=== PATIENT | female | born 1935 | race Caucasian/White ===

== ENCOUNTER 2016-09-17 02:22 | Emergency (ER) | payer MEDICARE, MEDICAID ==
[~2016-09-17] VITALS: Ht 170.2 cm; Wt 98.9 kg
[~2016-09-17 02:22] MED LIST: ARIC10TA PO; ASPI81TA82 PO; BENEPOW8 PO; CALCTAB32 PO; DITR5TAB OR; DOCU1CAP39 PO; GLUC1CAP14 PO; LEVO88TA21 PO; METO50TA PO; NAME10TA PO; PRIL20CA PO; TAB-TAB PO; ZOCO40TA PO
[2016-09-17 02:24] VITALS: BP 153/63; PULSE 43; RESP 18; TEMP 97.8
[2016-09-17 02:39] VITALS: BP 131/62; PULSE 45; RESP 18
[2016-09-17] MEDS ORDERED: MULT1TAB84 PO (02:50)
[2016-09-17] MEDS ORDERED: FURO1TAB62 PO (02:50)
[2016-09-17] MEDS ORDERED: ZOLO50TA PO (02:50)
[2016-09-17] MEDS ORDERED: OXYB5TAB10 PO (02:50)
[2016-09-17] MEDS ORDERED: SIMV40TA PO (02:50)
[2016-09-17] MEDS ORDERED: FURO1TAB60 PO (02:50)
[2016-09-17] MEDS ORDERED: NAME10TA PO (02:50)
[2016-09-17] MEDS ORDERED: BENEPOW8 PO (02:50)
[2016-09-17] MEDS ORDERED: DONE10TA7 PO (02:50)
[2016-09-17] MEDS ORDERED: SYNT88TA PO (02:50)
[2016-09-17] MEDS ORDERED: METO-309 PO (02:50)
[2016-09-17] MEDS ORDERED: ASPI81CH CHEW (02:50)
[2016-09-17] MEDS ORDERED: MILKSUS PO (02:50)
[2016-09-17] MEDS ORDERED: LORA-392 PO (02:50)
[2016-09-17] MEDS ORDERED: COLA100C3 PO (02:50)
[2016-09-17] MEDS ORDERED: MELA1TAB22 PO (02:50)
[2016-09-17] MEDS ORDERED: POTA10CA PO (02:50)
[2016-09-17] MEDS ORDERED: OMEP20TA PO (02:50)
--- NOTE | 2016-09-17 04:13 | PD ---
HPI Chief Complaint: Fall Time Seen by Provider: 02:53 Travel History International Travel<30 days: No Contact w/Intl Traveler<30days: No Traveled to known affect area: No History of Present Illness HPI 81-year-old female arrives from assisted living facility. She has history of Alzheimer's disease as well as chronic kidney disease and hypothyroidism. She bent over to pick something up from the floor and ended up falling straight backwards striking her occipital scalp patient has dementia and cannot recall the events leading up to her ER arrival. In the ER she denies pain. Additional history is somewhat limited to that which is provided by EMS and transfer paperwork. PFSH Past Medical History Alzheimer's Disease: Yes Anemia: Yes Anxiety: Yes Cancer: No Cardiovascular Problems: No High Cholesterol: Yes Coronary Artery Disease: Yes Dementia: Yes Diabetes: No Endocrine: No Gastrointestinal Disorders: Yes (GERD) Genitourinary: Yes (BLADDER FISTULA) Hepatitis: No Hiatal Hernia: No Hypertension: Yes Immune Disorder: No Musculoskeletal: No Neurologic: Yes (ALZHEIMER'S DISEASE) Psychiatric: Yes (ALZHEIMER'S DISEASE) Reproductive: No Respiratory: No Thyroid Disease: Yes Tetanus Vaccination: Unknown Influenza Vaccination: Yes Menopausal: Yes Past Surgical History Body Medical Devices: NONE Genitourinary Surgery: Yes (KIDNEY RE-POSITION) Pacemaker: No Other Surgery: Yes (BLADDER LIFT MANY YEARS AGO) Social History Alcohol Use: No Tobacco Use: No Substance Use: No Allergies-Medications (Allergen,Severity, Reaction): Coded Allergies: *MDRO Multi-Drug Resistant Organism (Verified Allergy, Unknown, 09/17/16) ESBL K - pneumoniae urine 05/2013 Reported Meds & Prescriptions Reported Meds & Active Scripts Active Reported Lopressor (Metoprolol Tartrate) 50 Mg Tab 50 Mg PO BID Milk of Magnesia Liq (Magnesium Hydroxide) 400 Mg/5 Ml Susp 30 Ml PO DAILY PRN Ativan (Lorazepam) 0.5 Mg Tab 0.5 Mg PO Q6H PRN Simvastatin 40 Mg Tab 40 Mg PO HS Melatonin 5 Mg Tab 1 Tab PO HS Donepezil 10 Mg Tab 10 Mg PO HS Ditropan (Oxybutynin Chloride) 5 Mg Tab 5 Mg PO Q12HR Namenda (Memantine) 10 Mg Tab 10 Mg PO BID Zoloft (Sertraline HCl) 50 Mg Tab 50 Mg PO DAILY Multivitamin Adults (Multiple Vitamins W/ Minerals) 1 Tab 1 Tab PO DAILY Synthroid (Levothyroxine Sodium) 88 Mcg Tab 88 Mcg PO DAILY Colace (Docusate Sodium) 100 Mg Cap 100 Mg PO DAILY Benefiber Powder (Wheat Dextrin Powder) 1 Scoop Container 1 Scoop PO DAILY Mix in water or juice Aspirin 81 Mg Chew 81 Mg CHEW DAILY Omeprazole 20 Mg Tab 20 Mg PO DAILY Potassium Chloride ER (Potassium Chloride) 10 Meq Cap 10 Meq PO DAILY Lasix (Furosemide) 20 Mg Tab 20 Mg PO DAILY Lasix (Furosemide) 40 Mg Tab 40 Mg PO DAILY TAKE FOR ONE WEEK FOR SWELLING Review of Systems Except as stated in HPI: all other systems reviewed are Neg Physical Exam Narrative GENERAL: 81 yo F, pleasantly demented, follows commands SKIN: Warm and dry. HEAD: Atraumatic. Normocephalic. 3cm contusion L occipital scalp. No Espinal's sign. No raccoon eyes. EYES: Pupils equal and round. No scleral icterus. No injection or drainage. ENT: No nasal bleeding or discharge. Mucous membranes pink and moist. NECK: Trachea midline. No JVD. CARDIOVASCULAR: Regular rate and rhythm. RESPIRATORY: No accessory muscle use. Clear to auscultation. Breath sounds equal bilaterally. GASTROINTESTINAL: Abdomen soft, non-tender, nondistended. Hepatic and splenic margins not palpable. MUSCULOSKELETAL: Extremities without clubbing, cyanosis, or edema. No obvious deformities. NEUROLOGICAL: Awake and alert. No obvious cranial nerve deficits. Motor grossly within normal limits. Five out of 5 muscle strength in the arms and legs. Normal speech. PSYCHIATRIC: Appropriate mood and affect; insight and judgment normal. Data Data Last Documented VS Vital Signs Date Time Temp Pulse Resp B/P Pulse Ox O2 Delivery O2 Flow Rate FiO2 09/17/16 02:39 45 18 131/62 Room Air 09/17/16 02:34 93 09/17/16 02:[address] Brain W/O Iv Contrast(Rout) (09/17/16 03:09) [facility] Medical Decision Making Medical Screen Exam Complete: Yes Emergency Medical Condition: Yes Medical Record Reviewed: Yes Differential Diagnosis Contusion, ICH, skull fracture Narrative Course Head CT: No acute injury No acute distress during ER stay. Patient is ready for discharge. Diagnosis Primary Impression: Fall Qualified Code: W19.XXXA - Fall, initial encounter Additional Impression: Contusion Qualified Code: S00.83XA - Contusion of other part of head, initial encounter Referrals: Primary Care Physician 2 days Additional Instructions: You have a choice when it comes to health care, and we are glad that you chose [facility]. Hopefully, we have met your expectations on today's visit. You are welcome to return to [facility] at any time, as we are committed to meeting the health care needs of our community. Med/Other Pt SpecificInfo: No Change to Meds Disposition: 01 DISCHARGE HOME Condition: Emory Marti MD Sep 17, 2016 04:13
--- NOTE | 2016-09-17 04:49 | RADRPT ---
EXAM DATE/TIME: 09/17/2016 04:30 [facility] COMPARISON: No previous studies available for comparison. INDICATIONS : Trauma. Fall. Altered mental status. RADIATION DOSE: 35.20 CTDIvol (mGy) MEDICAL HISTORY : Dementia. Hypertension. Hypercholesterolemia.GERD SURGICAL HISTORY : None. ENCOUNTER: Initial ACUITY: 1 day PAIN SCALE: Non-responsive LOCATION: cranial TECHNIQUE: Multiple contiguous axial images were obtained of the head. Using automated exposure control and adj ustment of the mA and/or kV according to patient size, radiation dose was kept as low as reasonably a chievable to obtain optimal diagnostic quality images. FINDINGS: CEREBRUM: The ventricles are mildly prominent for age. There is diffuse bilateral cortical atrophy. No evidence of midline shift, mass lesion, hemorrhage or acute infarction. No extra-axial fluid collections are seen. POSTERIOR FOSSA: The cerebellum and brainstem are intact. The 4th ventricle is midline. The cerebellopontine angle i s unremarkable. EXTRACRANIAL: The visualized portion of the orbits is intact. SKULL: The calvaria is intact. No evidence of skull fracture. CONCLUSION: 1. No focal or acute intracranial hemorrhage. 2. Diffuse bilateral cortical atrophy characteristic for patient's age. 3. Mild prominence of the ventricles most likely related to the diffuse atrophy. Fer Mccarty MD on September 17, 2016 at 4:46 Board Certified Radiologist. This report was verified electronically.
[2016-09-17 07:00] VITALS: BP 115/71; PULSE 60; RESP 18; O2SAT 100
== END 2016-09-17 07:32 | disposition home or self-care (01) ==
LOC: NEPC 02:22
DX: S00.03XA Contusion of scalp, initial encounter (principal); F02.80 Dementia in other diseases classified elsewhere, unspecified severity, without behavioral disturbance, psychotic disturbance, mood disturbance, and anxiety; G30.9 Alzheimer's disease, unspecified; I12.9 Hypertensive chronic kidney disease with stage 1 through stage 4 chronic kidney disease, or unspecified chronic kidney disease; E03.9 Hypothyroidism, unspecified; E78.00 Pure hypercholesterolemia, unspecified; W01.10XA Fall on same level from slipping, tripping and stumbling with subsequent striking against unspecified object, initial encounter
CPT/HCPCS: 70450

== ENCOUNTER 2016-12-25 02:21 | Emergency (ER) | payer MEDICARE, MEDICAID ==
[~2016-12-25] VITALS: Ht 157.5 cm; Wt 80.0 kg
[~2016-12-25 02:21] MED LIST changes: -ARIC10TA PO; +ASPI81CH CHEW; -ASPI81TA82 PO; -CALCTAB32 PO; +COLA100C3 PO; -DITR5TAB OR; -DOCU1CAP39 PO; +DONE10TA7 PO; +FURO1TAB60 PO; +FURO1TAB62 PO; -GLUC1CAP14 PO; -LEVO88TA21 PO; +LORA-392 PO; +MELA1TAB22 PO; +METO-309 PO; -METO50TA PO; +MILKSUS PO; +MULT1TAB84 PO; +OMEP20TA PO; +OXYB5TAB10 PO; +POTA10CA PO; -PRIL20CA PO; +SIMV40TA PO; +SYNT88TA PO; -TAB-TAB PO; -ZOCO40TA PO; +ZOLO50TA PO
[2016-12-25 02:25] VITALS: BP 144/63; PULSE 50; RESP 20; TEMP 98.7; O2SAT 92
[2016-12-25] MEDS ORDERED: GLUC1CAP14 PO (02:58)
[2016-12-25] MEDS ORDERED: CALC1TAB87 PO (02:58)
[2016-12-25] MEDS ORDERED: RANI150T PO (02:58)
[2016-12-25] MEDS ORDERED: OXYB5TAB10 PO (02:58)
[2016-12-25] MEDS ORDERED: NU-IRON PO (02:58)
--- NOTE | 2016-12-25 03:06 | PD ---
HPI Chief Complaint: Pain: Acute or Chronic Time Seen by Provider: 02:58 Travel History International Travel<30 days: No Contact w/Intl Traveler<30days: No Traveled to known affect area: No History of Present Illness HPI 81-year-old female with history of dementia [facility] because they believe she may be in pain. Paperwork sent with the patient states that the patient has been grimacing in pain. Upon arrival the patient is awake and alert. She does not make any sense, but apparently this is her baseline according to EMS. She does not appear to be in any distress or in any pain. PFSH Past Medical History Alzheimer's Disease: Yes Anemia: Yes Anxiety: Yes Cancer: No Cardiovascular Problems: No High Cholesterol: Yes Coronary Artery Disease: Yes Dementia: Yes Diabetes: No Endocrine: No Gastrointestinal Disorders: Yes (GERD) GERD: Yes Genitourinary: Yes (BLADDER FISTULA) Hepatitis: No Hiatal Hernia: No Hypertension: Yes Immune Disorder: No Musculoskeletal: No Neurologic: Yes (ALZHEIMER'S DISEASE) Psychiatric: Yes (ALZHEIMER'S DISEASE) Reproductive: No Respiratory: No Renal Failure: Yes (stage 3 renal disease) Thyroid Disease: Yes Menopausal: Yes Past Surgical History Body Medical Devices: NONE Genitourinary Surgery: Yes (KIDNEY RE-POSITION) Pacemaker: No Other Surgery: Yes (BLADDER LIFT MANY YEARS AGO) Social History Alcohol Use: No Tobacco Use: No Substance Use: No Allergies-Medications (Allergen,Severity, Reaction): Coded Allergies: *MDRO Multi-Drug Resistant Organism (Verified Allergy, Unknown, 12/25/16) ESBL K - pneumoniae urine 05/2013 Reported Meds & Prescriptions Reported Meds & Active Scripts Active Reported Ditropan (Oxybutynin Chloride) 5 Mg Tab 10 Mg PO Q12HR Glucosamine-Chondroitin 500-400 Mg Cap 0.5 Cap PO BID Poly-Iron 150 (Polysaccharide Iron Complex) 150 Mg Cap 150 Mg PO Q12HR Calcium 600 with Vitamin D (Calcium Carbonate-Cholecalciferol) 600-400 mg-Unit Tab 1 Tab PO DAILY Ranitidine (Ranitidine HCl) 150 Mg Tab 150 Mg PO DAILY Lopressor (Metoprolol Tartrate) 50 Mg Tab 50 Mg PO BID Milk of Magnesia Liq (Magnesium Hydroxide) 400 Mg/5 Ml Susp 30 Ml PO DAILY PRN Ativan (Lorazepam) 0.5 Mg Tab 0.5 Mg PO Q6H PRN Simvastatin 40 Mg Tab 40 Mg PO HS Melatonin 5 Mg Tab 1 Tab PO HS Donepezil 10 Mg Tab 10 Mg PO HS Namenda (Memantine) 10 Mg Tab 10 Mg PO BID Zoloft (Sertraline HCl) 50 Mg Tab 50 Mg PO DAILY Multivitamin Adults (Multiple Vitamins W/ Minerals) 1 Tab 1 Tab PO DAILY Synthroid (Levothyroxine Sodium) 88 Mcg Tab 88 Mcg PO DAILY Colace (Docusate Sodium) 100 Mg Cap 100 Mg PO DAILY Benefiber Powder (Wheat Dextrin Powder) 1 Scoop Container 1 Scoop PO DAILY Mix in water or juice Aspirin 81 Mg Chew 81 Mg CHEW DAILY Potassium Chloride ER (Potassium Chloride) 10 Meq Cap 10 Meq PO DAILY Review of Systems Except as stated in HPI: all other systems reviewed are Neg Physical Exam Narrative GENERAL: Well-developed, well-nourished, elderly-appearing female, awake, alert , no acute distress. SKIN: Focused skin assessment warm/dry. HEAD: Atraumatic. Normocephalic. EYES: Pupils equal and round. No scleral icterus. No injection or drainage. ENT: Mucous membranes pink and moist. NECK: Trachea midline. No JVD. No nuchal rigidity. CARDIOVASCULAR: Regular rate and rhythm. No murmur appreciated. RESPIRATORY: No accessory muscle use. Clear to auscultation. Breath sounds equal bilaterally. GASTROINTESTINAL: Abdomen soft, non-tender, nondistended. Normal bowel sounds. MUSCULOSKELETAL: No obvious deformities. No clubbing. No cyanosis. No edema. NEUROLOGICAL: Awake and alert. No obvious cranial nerve deficits. Motor grossly within normal limits. Normal speech. Data Data Last Documented VS Vital Signs Date Time Temp Pulse Resp B/P Pulse Ox O2 Delivery O2 Flow Rate FiO2 12/25/16 02:25 98.7 50 20 144/63 92 Orders Electrocardiogram (12/25/16 03:00) Complete Blood Count With Diff (12/25/16 03:00) Comprehensive Metabolic Panel (12/25/16 03:00) Prothrombin Time / Inr (Pt) (12/25/16 03:00) Act Partial Throm Time (Ptt) (12/25/16 03:00) Lactic Acid Sepsis Protocol (12/25/16 03:00) Ckmb (Isoenzyme) Profile (12/25/16 03:00) Troponin I (12/25/16 03:00) Urinalysis - C+S If Indicated (12/25/16 03:00) Blood Culture (12/25/16 03:00) Chest, Single Ap (12/25/16 03:00) Ecg Monitoring (12/25/16 03:00) Iv Access Insert/Monitor (12/25/16 03:00) Oximetry (12/25/16 03:00) Ct Abd/Pel W Iv Contrast(Rout) (12/25/16 ) Cath For Specimen (12/25/16 03:09) Urine Culture (12/25/16 03:10) Ceftriaxone Inj (Rocephin Inj) (12/25/16 03:45) Iohexol 350 Inj (Omnipaque 350 Inj) (12/25/16 04:39) Labs Laboratory Tests Test 12/25/16 03:10 White Blood Count 8.9 TH/MM3 Red Blood Count 3.95 MIL/MM3 Hemoglobin 12.0 GM/DL Hematocrit 36.6 % Mean Corpuscular Volume 92.6 FL Mean Corpuscular Hemoglobin 30.4 PG Mean Corpuscular Hemoglobin 32.9 % Concent Red Cell Distribution Width 13.6 % Platelet Count 184 TH/MM3 Mean Platelet Volume 10.1 FL Neutrophils (%) (Auto) 66.6 % Lymphocytes (%) (Auto) 22.0 % Monocytes (%) (Auto) 9.0 % Eosinophils (%) (Auto) 1.8 % Basophils (%) (Auto) 0.6 % Neutrophils # (Auto) 5.9 TH/MM3 Lymphocytes # (Auto) 2.0 TH/MM3 Monocytes # (Auto) 0.8 TH/MM3 Eosinophils # (Auto) 0.2 TH/MM3 Basophils # (Auto) 0.1 TH/MM3 CBC Comment DIFF FINAL Differential Comment Prothrombin Time 10.7 SEC Prothromb Time International 1.0 RATIO Ratio Activated Partial 21.8 SEC Thromboplast Time Urine Color YELLOW Urine Turbidity HAZY Urine pH 5.5 Urine Specific [place] 1.018 Urine Protein NEG mg/dL Urine Glucose (UA) NEG mg/dL Urine Ketones NEG mg/dL Urine Occult Blood NEG Urine Nitrite POS Urine Bilirubin NEG Urine Urobilinogen LESS THAN 2.0 MG/DL Urine Leukocyte Esterase MOD Urine RBC LESS THAN 1 /hpf Urine WBC 9 /hpf Urine Squamous Epithelial <1 /hpf Cells Urine Bacteria MOD /hpf Urine Hyaline Casts 1 /lpf Urine Mucus FEW /lpf Microscopic Urinalysis Comment CATH-CULTURE IND Sodium Level 146 MEQ/L Potassium Level 3.9 MEQ/L Chloride Level 110 MEQ/L Carbon Dioxide Level 28.7 MEQ/L Anion Gap 7 MEQ/L Blood Urea Nitrogen 31 MG/DL Creatinine 1.16 MG/DL Estimat Glomerular Filtration 45 ML/MIN Rate Random Glucose 88 MG/DL Lactic Acid Level 0.9 mmol/L Calcium Level 9.2 MG/DL Total Bilirubin 0.3 MG/DL Aspartate Amino Transf 23 U/L (AST/SGOT) Alanine Aminotransferase 22 U/L (ALT/SGPT) Alkaline Phosphatase 112 U/L Total Creatine Kinase 50 U/L Troponin I LESS THAN 0.02 NG/ML Total Protein 6.8 GM/DL Albumin 3.4 GM/DL [facility] Medical Decision Making Medical Screen Exam Complete: Yes Emergency Medical Condition: Yes Medical Record Reviewed: Yes Differential Diagnosis Intra-abdominal infection, UTI, ACS, osteoarthritis, dementia Narrative Course Vital signs reviewed. CBC is unremarkable. CMP is remarkable for sodium 146, chloride 110, BUN 31, creatinine 1.16, GFR 45 , otherwise unremarkable. Lactic acid is 0.9. Cardiac enzymes are negative. UA is suggestive of UTI. The patient was given a dose of IV Rocephin. Chest x-ray: Cardiomegaly. No acute cardiopulmonary disease. CT abdomen pelvis: CONCLUSION: 1. No evidence of acute abdominal or pelvic process. No masses are identified. 2. Diverticulosis without evidence of diverticulitis. Patient was reassessed several times and has been comfortable while in the emergency department. Her abdominal exam is benign. She is stable for [facility] with a [facility] for Macrobid for her UTI. PMD follow-up in the next 1-2 days. Diagnosis Primary Impression: UTI (urinary tract infection) Qualified Code: N39.0 - Urinary tract infection without hematuria, site unspecified Referrals: Primary Care Physician 1 day Additional Instructions: Give antibiotic as prescribed. Follow-up with her primary care physician in the next 1-2 days. Keep hydrated with plenty of fluids. Return to the emergency department for worsening symptoms or any other concerns. Scripts Nitrofurantoin Monohydrate Macrocrystals (Macrobid)100 Mg Sld172 Mg PO BID 7 Days Ref 0 Prov:Josué Shah MD 12/25/16 Disposition: 03 DISCHARGE TO SNF Condition: Stable Josué Shah MD December 25, 2016 03:06
[2016-12-25 03:31] LABS: AUTOMATED NEUTROPHIL # 5.9 TH/MM3 (1.8-7.7); BASOPHIL # 0.1 TH/MM3 (0-0.2); BASOPHIL % 0.6 % (0.0-2.0); EOSINOPHIL # 0.2 TH/MM3 (0-0.4); EOSINOPHIL % 1.8 % (0.0-4.0); HEMATOCRIT 36.6 % (35.0-46.0); HEMO FLAGS DIFF FINAL; MEAN CELL VOLUME 92.6 FL (80.0-100.0); MEAN CORPUSCULAR HEMOGLOBIN 30.4 PG (27.0-34.0); MEAN CORPUSCULAR HGB CONC 32.9 % (32.0-36.0); NEUT % 66.6 % (16.0-70.0); PLATELET COUNT 184 TH/MM3 (150-450); RED BLOOD COUNT 3.95 MIL/MM3 (4.00-5.30); RED CELL DISTRIBUTION WIDTH 13.6 % (11.6-17.2); WHITE BLOOD COUNT 8.9 TH/MM3 (4.0-11.0)
[2016-12-25 03:35] LABS: BACTERIA, URINE MOD /hpf; BLOOD, URINE NEG (NEG); COMMENT (UR) CATH-CULTURE IND; CULTURE IF INDICATED CATH CULTURE IND; GLUCOSE,URINE NEG (NEG); HYALINE CAST, URINE 1 /lpf (RARE); KETONE, URINE NEG (NEG); MUCUS URINE FEW /lpf (OCC); NITRITE,URINE POS (NEG); PH, URINE 5.5 (5.0-8.5); SQUAMOUS EPITHELIAL CELL URINE <1 /hpf (0-5); URINE COLOR YELLOW (YELLW/STRAW)
[2016-12-25 03:38] LABS: APTT (PATIENT) 21.8 SEC (24.3-30.1); PROTHROMBIN TIME - PATIENT 10.7 SEC (9.8-11.6)
[2016-12-25] MEDS ORDERED: cefTRIAXone INJ 1,000 MG in SODIUM CHLORIDE 0.9% INJ 100 ML IV ONE (03:45)
[2016-12-25 03:51] LABS: ALT (GPT) 22 U/L (10-53); ANION GAP 7 MEQ/L (5-15); AST (GOT) 23 U/L (15-37); BICARBONATE 28.7 MEQ/L (21.0-32.0); BLOOD UREA NITROGEN 31 MG/DL (7-18); CHLORIDE 110 MEQ/L (98-107); GLOMERULAR FILTRATION RATE 45 ML/MIN (>89); POTASSIUM 3.9 MEQ/L (3.5-5.1); SODIUM (NA) 146 MEQ/L (136-145)
--- NOTE | 2016-12-25 03:52 | RADRPT ---
EXAM DATE/TIME: 12/25/2016 03:15 [facility] COMPARISON: CHEST SINGLE AP, June 07, 2013, 12:02. INDICATIONS : Short of breath. MEDICAL HISTORY : Dementia. Hypertension. Hypercholesterolemia. GERD. SURGICAL HISTORY : None. ENCOUNTER: Initial ACUITY: 1 day PAIN SCORE: Non-responsive. LOCATION: Bilateral chest FINDINGS: The cardiac silhouette is enlarged in transverse diameter. The lungs are free of acute parenchymal op acity. No effusions are identified. Osseous structures are intact. CONCLUSION: Cardiomegaly. No acute cardiopulmonary disease. Joey Ramirez MD on December 25, 2016 at 3:50 Board Certified Radiologist. This report was verified electronically.
[2016-12-25 03:55] LABS: ALKALINE PHOSPHATASE 112 U/L (45-117); TOTAL BILIRUBIN ADULT 0.3 MG/DL (0.2-1.0)
[2016-12-25 04:03] LABS: CREATINE KINASE 50 U/L (26-192)
[2016-12-25] MEDS ORDERED: IOHEXOL 350 MG/ML 10 ML VIAL (for RAD DIAG) IV ONE (04:39)
--- NOTE | 2016-12-25 05:04 | RADRPT ---
EXAM DATE/TIME: 12/25/2016 04:31 [facility] COMPARISON: CT ABDOMEN & PELVIS W CONTRAST, May 07, 2016, 8:34. INDICATIONS : Abdominal pain. IV CONTRAST: 96 cc Omnipaque 350 (iohexol) IV ORAL CONTRAST: No oral contrast ingested. RADIATION DOSE: 17.43 CTDIvol (mGy) MEDICAL HISTORY : Hypertension. Gastroesophageal reflux disease. Renal disease. Dementia. Bladder fistula. CAD. SURGICAL HISTORY : None. ENCOUNTER: Initial ACUITY: 1 day PAIN SCALE: Non-responsive LOCATION: All quadrants. TECHNIQUE: Volumetric scanning of the abdomen and pelvis was performed. Using automated exposure control and ad justment of the mA and/or kV according to patient size, radiation dose was kept as low as reasonably achievable to obtain optimal diagnostic quality images. FINDINGS: Examination of the lung bases demonstrates no abnormality. No pleural fluid is identified. No pulmona ry nodules are present. Coronary artery calcifications are present. The liver is normal in size and f ree of focal defects. Calcification is present in the spleen characteristics of granuloma. The gallbl adder and pancreas are unremarkable. No intrahepatic or extrahepatic ductal dilatation is seen. The a drenal glands and kidneys appear normal bilaterally. No hydronephrosis or mass lesions are identified . Examination of the pelvis demonstrates no evidence of free fluid or pelvic mass. No abnormally enlarg ed inguinal or retroperitoneal lymph nodes are present. The bladder is unremarkable. There is diverti culosis without evidence of diverticulitis. CONCLUSION: 1. No evidence of acute abdominal or pelvic process. No masses are identified. 2. Diverticulosis without evidence of diverticulitis. Joey Ramirez MD on December 25, 2016 at 4:59 Board Certified Radiologist. This report was verified electronically.
[2016-12-25 05:14] VITALS: BP 99/60; PULSE 60; RESP 16; O2SAT 100
[2016-12-25] MEDS ORDERED: MACR100C2 PO (05:16)
--- NOTE | 2016-12-25 18:04 | EKG ---
Date Performed: 12/25/2016 Time Performed: 03:13:25 PTAGE: 81 years EKG: SINUS BRADYCARDIA WITH SINUS ARRHYTHMIA POSSIBLE LEFT ATRIAL ENLARGEMENT POSSIBLE RIGHT TRISTAN TRICULAR CONDUCTION DELAY BORDERLINE ECG Compared to prior tracing no significant change. PREVIOUS TRACING : 05/09/2016 05.32 DOCTOR: Joey Ortiz Interpretating Date/Time 12/25/2016 18:03:12
== END 2016-12-25 09:32 ==
LOC: NEPC 02:21
DX: N39.0 Urinary tract infection, site not specified (principal); B96.20 Unspecified Escherichia coli [E. coli] as the cause of diseases classified elsewhere; B96.89 Other specified bacterial agents as the cause of diseases classified elsewhere; B95.7 Other staphylococcus as the cause of diseases classified elsewhere; F03.90 Unspecified dementia, unspecified severity, without behavioral disturbance, psychotic disturbance, mood disturbance, and anxiety; I10 Essential (primary) hypertension; R94.31 Abnormal electrocardiogram [ECG] [EKG]
CPT/HCPCS: 71010; 74177; 80053; 81001; 82550; 83605; 84484; 85025; 85610; 85730; 86403; 87040; 87077; 87086; 87186; 87205; 93005; 96365; 99284; J0696; P9612; Q9967

== ENCOUNTER 2017-07-15 07:44 | Inpatient (IN) | payer MEDICARE, MEDICAID ==
[2017-07-15] VITALS (7 sets, daily range): BP systolic 111–170; BP diastolic 56–79; PULSE 48–77; RESP 16–23; TEMP 97.2–98.5; O2SAT 93–98
[~2017-07-15] VITALS: Ht 165.1 cm; Wt 75.2 kg
[2017-07-15] MEDS: SODIUM CHLOR 0.9% 1000 ML INJ 1,000 ML IV SCH ×2 (00:24→12:18)
[~2017-07-15 07:44] MED LIST changes: +ASPI-516 CHEW; -ASPI81CH CHEW; +CALC1TAB87 PO; -FURO1TAB60 PO; -FURO1TAB62 PO; +GLUC1CAP14 PO; +MACR100C2 PO; +NU-IRON PO; -OMEP20TA PO; -OXYB5TAB10 PO; +OXYB5TAB8 PO; +RANI150T PO
--- NOTE | 2017-07-15 07:54 | PD ---
HPI Chief Complaint: seizure Time Seen by Provider: 07:50 Travel History International Travel<30 days: No Contact w/Intl Traveler<30days: No Traveled to known affect area: No History of Present Illness HPI 82-year-old prison patient with no previous history of seizures, Alzheimer 's dementia, multiple medical issues, presents to the ER today brought in by EMS after she was witnessed to have what appears to be a tonic-clonic seizure while in the shower. Staff was there and were able to help her to the ground. She does not have any apparent injuries. She was initially GCS 3 when EMS arrived, had an episode of stool incontinence, and slowly recovered, awake, responsive to painful stimuli, but still disoriented and not able to answer questions on evaluation in the ER. Modifying Factors: None Associated Signs & Symptoms: Seizure, altered mental status Risk Factors: Elderly PFSH Past Medical History Alzheimer's Disease: Yes Anemia: Yes Anxiety: Yes Cancer: No Cardiovascular Problems: No High Cholesterol: Yes Coronary Artery Disease: Yes Dementia: Yes Diabetes: No Endocrine: No Gastrointestinal Disorders: Yes (GERD) GERD: Yes Genitourinary: Yes (BLADDER FISTULA) Hepatitis: No Hiatal Hernia: No Hypertension: Yes Immune Disorder: No Musculoskeletal: No Neurologic: Yes (ALZHEIMER'S DISEASE) Psychiatric: Yes (ALZHEIMER'S DISEASE) Reproductive: No Respiratory: No Renal Failure: Yes (stage 3 renal disease) Thyroid Disease: Yes Menopausal: Yes Past Surgical History Body Medical Devices: NONE Genitourinary Surgery: Yes (KIDNEY RE-POSITION) Pacemaker: No Other Surgery: Yes (BLADDER LIFT MANY YEARS AGO) Social History Alcohol Use: No Tobacco Use: No Substance Use: No Allergies-Medications (Allergen,Severity, Reaction): Coded Allergies: *MDRO Multi-Drug Resistant Organism (Verified Allergy, Unknown, 12/25/16) ESBL K - pneumoniae urine 05/2013 Reported Meds & Prescriptions Reported Meds & Active Scripts Active Macrobid (Nitrofurantoin Monoh/Nitrofur Macro) 100 Mg Cap 100 Mg PO BID 7 Days Reported Ditropan (Oxybutynin Chloride) 5 Mg Tab 10 Mg PO Q12HR Glucosamine-Chondroitin 500-400 Mg Cap 0.5 Cap PO BID Poly-Iron 150 (Polysaccharide Iron Complex) 150 Mg Cap 150 Mg PO Q12HR Calcium 600 with Vitamin D (Calcium Carbonate-Cholecalciferol) 600-400 mg-Unit Tab 1 Tab PO DAILY Ranitidine (Ranitidine HCl) 150 Mg Tab 150 Mg PO DAILY Lopressor (Metoprolol Tartrate) 50 Mg Tab 50 Mg PO BID Milk of Magnesia Liq (Magnesium Hydroxide) 400 Mg/5 Ml Susp 30 Ml PO DAILY PRN Ativan (Lorazepam) 0.5 Mg Tab 0.5 Mg PO Q6H PRN Simvastatin 40 Mg Tab 40 Mg PO HS Melatonin 5 Mg Tab 1 Tab PO HS Donepezil 10 Mg Tab 10 Mg PO HS Namenda (Memantine) 10 Mg Tab 10 Mg PO BID Zoloft (Sertraline HCl) 50 Mg Tab 50 Mg PO DAILY Multivitamin Adults (Multiple Vitamins W/ Minerals) 1 Tab 1 Tab PO DAILY Synthroid (Levothyroxine Sodium) 88 Mcg Tab 88 Mcg PO DAILY Colace (Docusate Sodium) 100 Mg Cap 100 Mg PO DAILY Benefiber Powder (Wheat Dextrin Powder) 1 Scoop Container 1 Scoop PO DAILY Mix in water or juice Aspirin 81 Mg Chew 81 Mg CHEW DAILY Potassium Chloride ER (Potassium Chloride) 10 Meq Cap 10 Meq PO DAILY Review of Systems ROS Limitations: Altered Mental Status Physical Exam Narrative GENERAL: Well-developed elderly white female patient currently in moderate distress. Lethargic, disoriented. SKIN: Focused skin assessment warm/dry. HEAD: Atraumatic. Normocephalic. EYES: Pupils equal and round. No scleral icterus. No injection or drainage. ENT: No nasal bleeding or discharge. Mucous membranes pink and moist. NECK: Trachea midline. No JVD. CARDIOVASCULAR: Regular rate and rhythm. No murmur appreciated. RESPIRATORY: No accessory muscle use. Clear to auscultation. Breath sounds equal bilaterally. GASTROINTESTINAL: Abdomen soft, non-tender, nondistended. Hepatic and splenic margins not palpable. MUSCULOSKELETAL: No obvious deformities. No clubbing. No cyanosis. No edema. NEUROLOGICAL: Lethargic. Not able to follow commands. Moving all 4 extremities. PSYCHIATRIC: Lethargic and disoriented Data Data Last Documented VS Vital Signs Date Time Temp Pulse Resp B/P (MAP) Pulse Ox O2 Delivery O2 Flow Rate FiO2 07/15/17 07:56 97.2 57 16 111/56 (74) 95 Room Air Orders Orders Complete Blood Count With Diff (07/15/17 07:50) Electrocardiogram (07/15/17 ) Ct Brain W/O Iv Contrast(Rout) (07/15/17 ) Blood Glucose (07/15/17 07:50) Ecg Monitoring (07/15/17 07:50) Iv Access Insert/Monitor (07/15/17 07:50) Oximetry (07/15/17 07:50) Comprehensive Metabolic Panel (07/15/17 07:50) Sodium Chloride 0.9% Flush (Ns Flush) (07/15/17 08:00) Prothrombin Time / Inr (Pt) (07/15/17 07:50) Act Partial Throm Time (Ptt) (07/15/17 07:50) Urinalysis - C+S If Indicated (07/15/17 07:50) Urine Culture (07/15/17 09:00) Lactic Acid Sepsis Protocol (07/15/17 09:41) Blood Culture (07/15/17 09:41) Piperacil-Tazo 4.5 Gm Premix (Zosyn 4.5 (07/15/17 09:41) Admit Order (Ed Use Only) (07/15/17 09:58) Labs Laboratory Tests Test 07/15/17 08:15 07/15/17 09:00 White Blood Count 5.7 TH/MM3 Red Blood Count 4.10 MIL/MM3 Hemoglobin 12.8 GM/DL Hematocrit 38.8 % Mean Corpuscular Volume 94.6 FL Mean Corpuscular Hemoglobin 31.1 PG Mean Corpuscular Hemoglobin Concent 32.9 % Red Cell Distribution Width 14.1 % Platelet Count 185 TH/MM3 Mean Platelet Volume 9.5 FL Neutrophils (%) (Auto) 66.4 % Lymphocytes (%) (Auto) 23.0 % Monocytes (%) (Auto) 7.5 % Eosinophils (%) (Auto) 2.6 % Basophils (%) (Auto) 0.5 % Neutrophils # (Auto) 3.8 TH/MM3 Lymphocytes # (Auto) 1.3 TH/MM3 Monocytes # (Auto) 0.4 TH/MM3 Eosinophils # (Auto) 0.1 TH/MM3 Basophils # (Auto) 0.0 TH/MM3 CBC Comment DIFF FINAL Differential Comment Prothrombin Time 10.5 SEC Prothromb Time International Ratio 1.0 RATIO Activated Partial Thromboplast Time 18.9 SEC Blood Urea Nitrogen 25 MG/DL Creatinine 1.03 MG/DL Random Glucose 78 MG/DL Total Protein 7.0 GM/DL Albumin 3.1 GM/DL Calcium Level 9.2 MG/DL Alkaline Phosphatase 116 U/L Aspartate Amino Transf (AST/SGOT) 21 U/L Alanine Aminotransferase (ALT/SGPT) 19 U/L Total Bilirubin 0.3 MG/DL Sodium Level 145 MEQ/L Potassium Level 4.4 MEQ/L Chloride Level 109 MEQ/L Carbon Dioxide Level 28.2 MEQ/L Anion Gap 8 MEQ/L Estimat Glomerular Filtration Rate 52 ML/MIN Urine Color YELLOW Urine Turbidity HAZY Urine pH 7.0 Urine Specific [place] 1.016 Urine Protein NEG mg/dL Urine Glucose (UA) NEG mg/dL Urine Ketones NEG mg/dL Urine Occult Blood SMALL Urine Nitrite POS Urine Bilirubin NEG Urine Urobilinogen LESS THAN 2.0 MG/DL Urine Leukocyte Esterase MOD Urine RBC 19 /hpf Urine WBC 13 /hpf Urine Squamous Epithelial Cells 4 /hpf Urine Bacteria OCC /hpf Urine Mucus FEW /lpf Microscopic Urinalysis Comment CATH-CULTURE IND MDM Medical Decision Making Medical Screen Exam Complete: Yes Emergency Medical Condition: Yes Medical Record Reviewed: Yes Interpretation(s) EKG shows sinus bradycardia rate 54 bpm with no signs of acute ST-T changes. Laboratory Tests Test 07/15/17 08:15 07/15/17 09:00 Activated Partial Thromboplast Time 18.9 SEC (24.3-30.1) Blood Urea Nitrogen 25 MG/DL (7-18) Creatinine 1.03 MG/DL (0.50-1.00) Albumin 3.1 GM/DL (3.4-5.0) Chloride Level 109 MEQ/L (98-107) Estimat Glomerular Filtration Rate 52 ML/MIN (>89) Urine Turbidity HAZY (CLEAR) Urine Occult Blood SMALL (NEG) Urine Nitrite POS (NEG) Urine Leukocyte Esterase MOD (NEG) Urine RBC 19 /hpf (0-3) Urine WBC 13 /hpf (0-5) Urine Bacteria OCC /hpf (NONE) Urine Mucus FEW /lpf (OCC) Last [address] 07/15/17 0000 Signed Impressions: Service Date/Time: Saturday, July 15, 2017 08:35 - CONCLUSION: No acute disease. Jasper Brandt MD Differential Diagnosis Seizure, altered mental status: Acute intracranial processes versus metabolic issues versus dehydration versus dysrhythmias Narrative Course EKG did not show significant dysrhythmias. Vital signs are stable in the ER. She is still fairly disoriented in the ER but is unclear whether she is far from baseline. Her lab work did not indicate significant metabolic issues. She does have a UTI which was treated IV antibiotics after cultures were drawn. I am unsure whether this is related to the seizure which was witnessed by staff at facility. She does not appear to have any significant injuries, apparently staff saw her have the episode and lowered her down to the ground. My plan at this point would be to admit her for further evaluation of new onset seizure. Case was discussed with family practice resident service for admission. Diagnosis Primary Impression: New onset seizure Additional Impression: UTI (urinary tract infection) Admitting Information Admitting Physician Requests: Admit Misael Caballero MD Jul 15, 2017 07:54
[2017-07-15] MEDS ORDERED: SODIUM CHLORIDE 0.9% FLUSH 10 ML FLUSH IVF PRN (08:00)
[2017-07-15 08:28] LABS: AUTOMATED NEUTROPHIL # 3.8 TH/MM3 (1.8-7.7); BASOPHIL % 0.5 % (0.0-2.0); EOSINOPHIL # 0.1 TH/MM3 (0-0.4); EOSINOPHIL % 2.6 % (0.0-4.0); HEMATOCRIT 38.8 % (35.0-46.0); HEMO FLAGS DIFF FINAL; LYMPHOCYTE # 1.3 TH/MM3 (1.0-4.8); MEAN CELL VOLUME 94.6 FL (80.0-100.0); MEAN CORPUSCULAR HEMOGLOBIN 31.1 PG (27.0-34.0); MEAN CORPUSCULAR HGB CONC 32.9 % (32.0-36.0); MONO % 7.5 % (0.0-8.0); NEUT % 66.4 % (16.0-70.0); PLATELET COUNT 185 TH/MM3 (150-450); RED CELL DISTRIBUTION WIDTH 14.1 % (11.6-17.2); WHITE BLOOD COUNT 5.7 TH/MM3 (4.0-11.0)
[2017-07-15 08:41] LABS: PROTHROMBIN TIME - PATIENT 10.5 SEC (9.8-11.6)
[2017-07-15 08:46] LABS: ANION GAP 8 MEQ/L (5-15); AST (GOT) 21 U/L (15-37); BICARBONATE 28.2 MEQ/L (21.0-32.0); BLOOD UREA NITROGEN 25 MG/DL (7-18); CHLORIDE 109 MEQ/L (98-107); GLOMERULAR FILTRATION RATE 52 ML/MIN (>89); POTASSIUM 4.4 MEQ/L (3.5-5.1); SODIUM (NA) 145 MEQ/L (136-145)
[2017-07-15 08:47] LABS: ALT (GPT) 19 U/L (10-53)
[2017-07-15 08:52] LABS: ALKALINE PHOSPHATASE 116 U/L (45-117); TOTAL BILIRUBIN ADULT 0.3 MG/DL (0.2-1.0)
[2017-07-15 08:56] LABS: APTT (PATIENT) 18.9 SEC (24.3-30.1)
--- NOTE | 2017-07-15 09:11 | RADRPT ---
EXAM DATE/TIME: 07/15/2017 08:35 [facility] COMPARISON: CT BRAIN W/O CONTRAST, September 17, 2016, 4:30. INDICATIONS : Possible seizure, altered mental status. RADIATION DOSE: 31.11 CTDIvol (mGy) MEDICAL HISTORY : Alzheimer's Cardiovascular disease Hypertension. SURGICAL HISTORY : None. ENCOUNTER: Initial ACUITY: 1 day PAIN SCALE: Non-responsive LOCATION: cranial TECHNIQUE: Multiple contiguous axial images were obtained of the head. Using automated exposure control and adj ustment of the mA and/or kV according to patient size, radiation dose was kept as low as reasonably a chievable to obtain optimal diagnostic quality images. DICOM format image data is available electro nically for review and comparison. FINDINGS: There is marked central and cortical atrophy with dilatation of ventricular and sulcal spaces. There is no parenchymal hemorrhage, acute infarction or mass lesion identified. There are no extra-axial fluid collections appreciated. The posterior fossa is unremarkable with midline fourth ventricle. T he portion of the orbits and paranasal sinuses visualized are unremarkable. CONCLUSION: No acute disease. Jasper Brandt MD on July 15, 2017 at 9:09 Board Certified Radiologist. This report was verified electronically.
[2017-07-15 09:32] LABS: BACTERIA, URINE OCC /hpf; BLOOD, URINE SMALL (NEG); GLUCOSE,URINE NEG (NEG); KETONE, URINE NEG (NEG); MUCUS URINE FEW /lpf (OCC); NITRITE,URINE POS (NEG); SQUAMOUS EPITHELIAL CELL URINE 4 /hpf (0-5); URINE COLOR YELLOW (YELLW/STRAW)
[2017-07-15 09:33] LABS: COMMENT (UR) CATH-CULTURE IND; CULTURE IF INDICATED CATH CULTURE IND
[2017-07-15] MEDS ORDERED: PIPERACIL-TAZO 4.5 GM PREMIX 100 ML IV STA (09:41)
[2017-07-15] MEDS ORDERED: HYDR-3133 PO (10:53)
[2017-07-15] MEDS ORDERED: MELA3TAB PO (10:53)
[2017-07-15] MEDS ORDERED: WHEA1POW9 PO (10:53)
[2017-07-15] MEDS ORDERED: MULT1TAB46 (10:53)
[2017-07-15] MEDS ORDERED: NUED20CA PO (10:53)
--- NOTE | 2017-07-15 11:00 | HHI.HP ---
HPI Service Family Medicine Primary Care Physician Unknown Admission Diagnosis new onset seizure/UTI Diagnoses: Chief Complaint: new tonic-clonic seizure International Travel<30 Days: No Contact w/Intl Traveler<30days: No Known Affected Area: No History of Present Illness Ms Gustafson is an 82YO female w/PMHx of Alzheimer's dementia, Afib, anxiety, and recurrent UTIs who has been a resident in [facility] [id number] and had a tonic-clonic seizure witnessed by the staff in the shower this morning. The staff helped her to the floor so there was no fall at the time and EMS was called. She was incontinent of stool at that time and had a post-ictal period before returning to normal baseline which is non-verbal. Dr Juarez is her PCP in the half-way. Her is in her room with us, [facility], and reports his has had alzheimer's dementia for 4 years or more. She has no other reported medical history. She was last hospitalized at [place] for gallstones approximately 1 year ago. In the ED she is bradycardic on the monitor and on ECG in the 40s and 50s. There are no other symptoms reported. (Ricardo Cope MD R1) Review of Systems ROS Limitations: Clinical Condition (alzheimer's) Constitutional: COMPLAINS OF: Weight loss (from 195 lbs to 162 in half-way/ per diet), DENIES: Fever, Weight gain, Chills (Ricardo Cope MD R1) Past Family Social History Past Medical History anxiety frequent UTIs alzheimer's dementia -- dx 4 years ago scan of records indicates Afib Past Surgical History gallstones 1 yr ago at [facility] couple of surgeries by Dr Garcia Bladder sling 40 yrs ago Reported Medications Reported Meds & Active Scripts Active Reported Hydroxyzine HCl 25 Mg Tab 25 Mg PO QID Nuedexta 20-10 mg (Dextromethorphan HBr-Quinidine) 20 Mg-10 Mg Cap 1 Cap PO BID Multi Vitamin Daily (Multiple Vitamin) 1 Tab Tab Benefiber (Wheat Dextrin) 3 Gram/3.8 Gram Powder 1 Packet PO DAILY Melatonin 3 Mg Tab 1 Tab PO HS Calcium 600 with Vitamin D (Calcium Carbonate-Cholecalciferol) 600-400 mg-Unit Tab 1 Tab PO DAILY Ranitidine (Ranitidine HCl) 150 Mg Tab 150 Mg PO DAILY Lopressor (Metoprolol Tartrate) 50 Mg Tab 50 Mg PO BID Milk of Magnesia Liq (Magnesium Hydroxide) 400 Mg/5 Ml Susp 30 Ml PO DAILY PRN Synthroid (Levothyroxine Sodium) 88 Mcg Tab 88 Mcg PO DAILY Aspirin 81 Mg Chew 81 Mg CHEW DAILY Potassium Chloride ER (Potassium Chloride) 10 Meq Cap 10 Meq PO DAILY (Ricardo Cope MD R1) Allergies: Coded Allergies: *MDRO Multi-Drug Resistant Organism (Verified Allergy, Unknown, 12/25/16) ESBL K - pneumoniae urine 05/2013 Active Ordered Medications Reported Meds & Active Scripts Active Reported Hydroxyzine HCl 25 Mg Tab 25 Mg PO QID Nuedexta 20-10 mg (Dextromethorphan HBr-Quinidine) 20 Mg-10 Mg Cap 1 Cap PO BID Multi Vitamin Daily (Multiple Vitamin) 1 Tab Tab Benefiber (Wheat Dextrin) 3 Gram/3.8 Gram Powder 1 Packet PO DAILY Melatonin 3 Mg Tab 1 Tab PO HS Calcium 600 with Vitamin D (Calcium Carbonate-Cholecalciferol) 600-400 mg-Unit Tab 1 Tab PO DAILY Ranitidine (Ranitidine HCl) 150 Mg Tab 150 Mg PO DAILY Lopressor (Metoprolol Tartrate) 50 Mg Tab 50 Mg PO BID Milk of Magnesia Liq (Magnesium Hydroxide) 400 Mg/5 Ml Susp 30 Ml PO DAILY PRN Synthroid (Levothyroxine Sodium) 88 Mcg Tab 88 Mcg PO DAILY Aspirin 81 Mg Chew 81 Mg CHEW DAILY Potassium Chloride ER (Potassium Chloride) 10 Meq Cap 10 Meq PO DAILY Family History Mother of [place] at age 68 Father - not known Social History Lives [facility] x14 months visits daily no changes noted lately-- notes her health has been improving since admit to half-way 4 children--one daughter visiting for Thanksgiving No EtOH, tobacco, drugs (Ricardo Cope MD R1) Physical Exam Vital Signs Vital Signs Date Time Temp Pulse Resp B/P (MAP) Pulse Ox O2 Delivery O2 Flow Rate FiO2 07/15/17 07:56 97.2 57 16 111/56 (74) 95 Room Air Physical Exam GENERAL: This is a well-nourished, well-developed patient, in no apparent distress. SKIN: No rashes, ecchymoses or lesions. Cool and dry. HEAD: Atraumatic. Normocephalic. No temporal or scalp tenderness. EYES: Pupils equal round and reactive. Extraocular motions intact. No scleral icterus. No injection or drainage. ENT: Nose without bleeding, purulent drainage or septal hematoma. Throat without erythema, tonsillar hypertrophy or exudate. Uvula midline. Airway patent. NECK: Trachea midline. No JVD or lymphadenopathy. Supple, nontender, no meningeal signs. CARDIOVASCULAR: Regular rate and rhythm without murmurs, gallops, or rubs. RESPIRATORY: Clear to auscultation. Breath sounds equal bilaterally. No wheezes , rales, or rhonchi. GASTROINTESTINAL: Abdomen soft, non-tender, nondistended. No hepato-splenomegaly , or palpable masses. No guarding. MUSCULOSKELETAL: Extremities without clubbing, cyanosis, or edema. No joint tenderness, effusion, or edema noted. No calf tenderness. Negative Homans sign bilaterally. NEUROLOGICAL: Awake and alert. Cranial nerves II through XII intact. Motor and sensory grossly within normal limits. Five out of 5 muscle strength in all muscle groups. Normal speech. Laboratory Laboratory Tests Test 07/15/17 08:15 07/15/17 09:00 07/15/17 09:53 White Blood Count 5.7 Red Blood Count 4.10 Hemoglobin 12.8 Hematocrit 38.8 Mean Corpuscular Volume 94.6 Mean Corpuscular Hemoglobin 31.1 Mean Corpuscular Hemoglobin Concent 32.9 Red Cell Distribution Width 14.1 Platelet Count 185 Mean Platelet Volume 9.5 Neutrophils (%) (Auto) 66.4 Lymphocytes (%) (Auto) 23.0 Monocytes (%) (Auto) 7.5 Eosinophils (%) (Auto) 2.6 Basophils (%) (Auto) 0.5 Neutrophils # (Auto) 3.8 Lymphocytes # (Auto) 1.3 Monocytes # (Auto) 0.4 Eosinophils # (Auto) 0.1 Basophils # (Auto) 0.0 CBC Comment DIFF FINAL Differential Comment Prothrombin Time 10.5 Prothromb Time International Ratio 1.0 Activated Partial Thromboplast Time 18.9 Blood Urea Nitrogen 25 Creatinine 1.03 Random Glucose 78 Total Protein 7.0 Albumin 3.1 Calcium Level 9.2 Alkaline Phosphatase 116 Aspartate Amino Transf (AST/SGOT) 21 Alanine Aminotransferase (ALT/SGPT) 19 Total Bilirubin 0.3 Sodium Level 145 Potassium Level 4.4 Chloride Level 109 Carbon Dioxide Level 28.2 Anion Gap 8 Estimat Glomerular Filtration Rate 52 Urine Color YELLOW Urine Turbidity HAZY Urine pH 7.0 Urine Specific [place] 1.016 Urine Protein NEG Urine Glucose (UA) NEG Urine Ketones NEG Urine Occult Blood SMALL Urine Nitrite POS Urine Bilirubin NEG Urine Urobilinogen LESS THAN 2.0 Urine Leukocyte Esterase MOD Urine RBC 19 Urine WBC 13 Urine Squamous Epithelial Cells 4 Urine Bacteria OCC Urine Mucus FEW Microscopic Urinalysis Comment CATH-CULTURE IND Lactic Acid Level 1.4 Date/Time Source Procedure Growth Status 07/15/17 09:55 Blood Peripheral Aerobic Blood Culture Pending Received 07/15/17 09:55 Blood Peripheral Anaerobic Blood Culture Pending Received 07/15/17 09:00 Urine Catheterized Urine Urine Culture Pending Received (Ricardo Cope MD R1) Result Diagram: 07/15/1715 07/15/1715 Imaging Last Impressions Head CT 07/15/17 0000 Signed Impressions: Service Date/Time: Saturday, July 15, 2017 08:35 - CONCLUSION: No acute disease. Jasper Brandt MD Chest X-Ray 07/15/17 0000 Signed Impressions: Service Date/Time: Saturday, July 15, 2017 12:59 - CONCLUSION: Normal examination. Tortuous aorta Jasper Brandt MD (Ricardo Cope MD R1) Septic Shock Reassessment Lungs: Clear Skin: Warm, Dry Peripheral Pulses: Weak Right Dorsalis Pedis Weak Left Dorsalis Pedis Bounding Right Radial Bounding Left Radial Capillary Refill: Brisk (Ricardo Cope MD R1) Caprini VTE Risk Assessment Caprini VTE Risk Assessment: Mod/High Risk (score >= 2) Caprini Risk Assessment Model Point Value = 1 Point Value = 2 Point Value = 3 Point Value = 5 Age 41-60 Minor surgery BMI > 25 kg/m2 Swollen legs Varicose veins or History of unexplained or recurrent spontaneous Oral contraceptives or hormone replacement Sepsis (< 1 month) Serious lung disease, including pneumonia (< 1 month) Abnormal pulmonary function Acute myocardial infarction Congestive heart failure (< 1 month) History of inflammatory bowel disease Medical patient at bed rest Age 61-74 Arthroscopic surgery Major open surgery (> 45 min) Laparoscopic surgery (> 45 min) Malignancy Confined to bed (> 72 hours) Immobilizing plaster cast Central venous access Age >= 75 History of VTE Family history of VTE Factor V Leiden Prothrombin [id number] Lupus anticoagulant Anticardiolipin antibodies Elevated serum homocysteine Heparin-induced thrombocytopenia Other congenital or acquired thrombophilia Stroke (< 1 month) Elective arthroplasty Hip, pelvis, or leg fracture Acute spinal cord injury (< 1 month) Prophylaxis Regimen Total Risk Factor Score Risk Level Prophylaxis Regimen 0-1 Low Early ambulation 2 Moderate Order ONE of the following: *Sequential Compression Device (SCD) *Heparin 5000 units SQ BID 3-4 Higher Order ONE of the following medications: *Heparin 5000 units SQ TID *Enoxaparin/Lovenox 40 mg SQ daily (WT < 150 kg, CrCl > 30 mL/min) *Enoxaparin/Lovenox 30 mg SQ daily (WT < 150 kg, CrCl > 10-29 mL/min) *Enoxaparin/Lovenox 30 mg SQ BID (WT < 150 kg, CrCl > 30 mL/min) AND/OR *Sequential Compression Device (SCD) 5 or more Highest Order ONE of the following medications: *Heparin 5000 units SQ TID (Preferred with Epidurals) *Enoxaparin/Lovenox 40 mg SQ daily (WT < 150 kg, CrCl > 30 mL/min) *Enoxaparin/Lovenox 30 mg SQ daily (WT < 150 kg, CrCl > 10-29 mL/min) *Enoxaparin/Lovenox 30 mg SQ BID (WT < 150 kg, CrCl > 30 mL/min) AND *Sequential Compression Device (SCD) (Ricardo Cope MD R1) Assessment and Plan Assessment and Plan 82YO female w/PMHx Alzheimer's dementia, anxiety and recurrent UTIs p/w new tonic-clonic seizure with no fall, bradycardia in the 40s and 50s on admission, and leuko esterase and nitrite positive UA on admission, but no leukocytosis, afebrile and not ill-appearing. CT head negative for acute disease. DDx new onset seizure disorder vs bradycardia/cardiac etiology vs alzheimer's progression vs metabolic encephalopathy 2/2 UTI. Pt discussed with Dilma Swann Code Status No code/DNR - will bring in copy of HCPOA Discussed Condition With Dilma Beyer and Charleen (Ricardo Cope MD R1) Attending Attestation The patient has been seen and examined. The chart and all resident notes have been reviewed. I agree that inpatient care is appropriate and that a two midnight stay is expected for the reasons documented in the resident history and physical. I have discussed this with the resident and certify the resident s order for inpatient admission. (Destiney Beyer MD) Problem List: (1) New onset seizure ICD Codes: R56.9 - Unspecified convulsions Status: Acute Plan: Tonic-clonic seizure (new onset) in the shower this morning witnessed by staff at [facility]; pt was incontinent of stool at that time and appeared to have a post-ictal period before back at baseline -EEG reported as abnormal -- report pending -ASA 81 given in ED -Ativan 2mg IV PRN if seizure repeats -Seizure precautions -Neuro checks -Neurology consulted, appreciate recs --Start Keppra --Start Fosphenytoin (2) Bradycardia ICD Codes: R00.1 - Bradycardia, unspecified Plan: Bradycardic on admission in 40s and 50s confirmed by EKG; PMHx indicating AFib that is not evident on EKG; assess for Cardiac etiology for seizure etiology -Holding home Metoprolol 50mg BID -Trend Troponins and EKGs x2 -BNP 184 -Total Creatine Kinase 62 -Cardiology consult for Bradycardia, appreciate recs --Per Dr Guido, holding Metoprolol to allow HR to trend up --Restart Metoprolol if/when indicated --Not a candidate for pacemaker --Cards signed off (3) UTI (urinary tract infection) ICD Codes: N39.0 - Urinary tract infection, site not specified Status: Acute Plan: UA leuko esterase and nitrite positive with RBCs, WBCs, bacteria, mucous ; CBC with WBC wnl, pt afebrile, well-appearing; Urine cx pending; since pt is non-verbal, begin empiric abx for UTI with prior Hx of ESBL Klebsiella -Zosyn one dose in ED -Start Cipro 400mg IV q12h pending urine cx (4) ATIYA (acute kidney injury) ICD Codes: N17.9 - Acute kidney failure, unspecified Status: Acute Plan: Hard to establish true Cr baseline but appears to be in normal range; 1.03 on admit -Gentle IVF -Avoid nephrotoxic agents -Renally dose medications (5) Hypothyroidism ICD Codes: E03.9 - Hypothyroidism, unspecified Status: Acute Plan: TSH elevated to 7.430 on 07/15 -Hold home dose 88mcg levothyroxine /day after 07/15 -Start Levothyroxine 100mcg/day 07/16 (6) Alzheimer's dementia ICD Codes: G30.9 - Alzheimer's disease, unspecified Status: Chronic Plan: Stable. (7) FEN/GI/PPx Status: Acute Plan: Fluids: NS IVF @ 110ml/hr Electrolytes: wnl but will monitor w/daily labs and correct as necessary Diet: NPO for now PPx: ASA 81mg -Continue home dose Famotidine 10mg BID -Lovenox 40mg subcu/daily -OOB with assistance -Fall precautions -Seizure precautions -PT to evaluate and treat (8) Hypothyroid ICD Codes: E03.9 - Hypothyroidism, unspecified (Ricardo Cope MD R1) Physician Certification 2 Midnight Certification Type: Admission for Inpatient Services Order for Inpatient Services The services are ordered in accordance with Medicare regulations or non- Medicare payer requirements, as applicable. In the case of services not specified as inpatient-only, they are appropriately provided as inpatient services in accordance with the 2-midnight benchmark. Estimated LOS (days): 2 days is the estimated time the patient will need to remain in the hospital, assuming treatment plan goals are met and no additional complications. Post-Hospital Plan: Shelter/SENIOR CARE (Ricardo Cope MD R1) Problem Qualifiers (1) UTI (urinary tract infection): (2) Alzheimer's dementia: Ricardo Cope MD R1 Jul 15, 2017 11:00 Destiney Beyer MD Jul 21, 2017 22:08
[2017-07-15] MEDS ORDERED: LORazepam 2 MG/ML VIAL IV PUSH PRN (11:30)
[2017-07-15] MEDS ORDERED: ONDANSETRON HCL 4 MG/2 ML VIAL IV PUSH PRN (11:30)
[2017-07-15 11:47] LABS: MAGNESIUM 2.1 MG/DL (1.5-2.5)
--- NOTE | 2017-07-15 12:52 | MB ---
cc: LILIAN CHANDLER DATE OF CONSULTATION 07/15/2017 REASON FOR CONSULTATION Bradycardia HISTORY OF PRESENT ILLNESS This is an 82-year-old female. She is a poor historian and somewhat lethargic, does not answer questions very well. Most of the history is obtained from chart records. Apparently she lives in [facility] for the last year or so. She was in the shower, had stool incontinence and was noted to have a witnessed seizure. She has a history of Alzheimer's dementia. She also presented, was found to be bradycardic with sinus bradycardia in the 40s and 50 beats per minute range. Reportedly asymptomatic from that perspective. She has history of atrial fibrillation. We are consulted for further recommendations. PAST MEDICAL HISTORY 1. Anxiety 2. UTI 3. Alzheimer's dementia MEDICATIONS Reported medications, see med reconciliation. ALLERGIES NO KNOWN DRUG ALLERGIES. FAMILY HISTORY Denies any family history of early coronary artery disease or sudden cardiac . SOCIAL HISTORY Lives at [facility]. REVIEW OF SYSTEMS A limited review of systems is unremarkable as noted in the history of present illness. PHYSICAL EXAMINATION VITAL SIGNS: Temperature 97, pulse is 57, blood pressure 111/56 mmHg. GENERAL: Alert in no acute distress. HEENT: Exam shows pupils are round and reactive to light and accommodation. Extraocular movements are intact. NECK: No elevation in jugular venous distension. No thyromegaly or lymphadenopathy. No carotid bruits. LUNGS: Clear to auscultation bilaterally. CARDIAC: There is a regular rate and rhythm without murmurs, rubs or gallops. ABDOMEN: Nontender, nondistended. Good bowel sounds. No hepatosplenomegaly. EXTREMITIES: Shows no clubbing, cyanosis or edema and good peripheral pulses. NEUROLOGIC: Cranial nerves intact. Motor and sensory grossly intact. Electrocardiogram, sinus bradycardia. No ischemic changes. LABORATORY DATA Sodium 145, potassium 4.4, BUN 25, creatinine is 1.03. TSH pending. ASSESSMENT 1. Sinus bradycardia 2. Seizure 3. Dementia PLAN The patient's heart rate is now in the upper 50s, low 60 beats per minute range. She is in bed lying and comfortable. She probably augments her heart rate appropriately with limited activities. She is on Lopressor 50 mg twice daily. She does have a history atrial fibrillation, although she is in sinus rhythm now. She is not an anticoagulation candidate. At this point, TSH is pending. I would hold her Lopressor for now, let her heart rate trend up and then potentially add back at a much reduced dose maybe 12.5 mg twice daily. There is no high-grade conduction disease. There is no indication for pacemaker. I do not think that her bradycardia had anything to do with her presentation of suggested seizure. At this point, she can follow up with a primary care doc and she probably has an outpatient blood coordinator. She does not need to follow up with me in the outpatient setting. We will sign off, call with further questions. MD VIJAY Vuong/AUGUSTINA /12:40 PM /12:47 PM
--- NOTE | 2017-07-15 13:37 | RADRPT ---
EXAM DATE/TIME: 07/15/2017 12:59 [facility] COMPARISON: CHEST SINGLE AP, December 25, 2016, 3:15. INDICATIONS : Difficulty breathing. MEDICAL HISTORY : Alzheimer's. cardiovascular disease. hypertension. SURGICAL HISTORY : None. ENCOUNTER: Subsequent ACUITY: 2 days PAIN SCORE: Non-responsive. LOCATION: Bilateral chest FINDINGS: A single view of the chest demonstrates the lungs to be symmetrically aerated without evidence of mas s, infiltrate or effusion. The cardiomediastinal contours are unremarkable. Osseous structures are intact. CONCLUSION: Normal examination. Tortuous aorta Jasper Brandt MD on July 15, 2017 at 13:35 Board Certified Radiologist. This report was verified electronically.
--- NOTE | 2017-07-15 15:07 | PD.CONS ---
History of Present Illness Service Neurology Consult Requested By medical Reason for Consult jacob Primary Care Physician Unknown History of Present Illness 82YO female lives in [facility] x14mos --tonic-clonic seizure in shower w/ stool incontinence witnessed by [facility] staff[facility]. advanced dementia x 4 years. bedridden with wheelchair use. mumbled speech and disoriented at baseline. spouse will visit her. no hx of sz. no hx of stroke. ct brain stable. glucose 78. mag nml. na nml. Review of Systems as above Past Family Social History Past Medical History anxiety frequent UTIs alzheimer's dementia -- dx 4 years ago Past Surgical History gallstones 1 yr ago at [place] couple of surgeries by DR Garcia Bladder sling 40 yrs ago Reported Medications none reported Allergies: Coded Allergies: *MDRO Multi-Drug Resistant Organism (Verified Allergy, Unknown, 12/25/16) ESBL K - pneumoniae urine 05/2013 Family History Mother of AR at age 68 Father - not known Social History Lives [facility] Review of Systems All other ROS: ROS reviewed as documented in chart Past Family Social History Allergies: Coded Allergies: *MDRO Multi-Drug Resistant Organism (Verified Allergy, Unknown, 12/25/16) ESBL K - pneumoniae urine 05/2013 Active Ordered Medications Current Medications Medications (Trade) Dose Ordered Sig/Beata Route Start Time Stop Time Status Last Admin (NS Flush) 2 ml UNSCH PRN IVF 07/15/17 08:00 (Aspirin Chew) 81 mg DAILY CHEW 07/16/17 09:00 (Synthroid) 88 mcg DAILY@0600 PO 07/16/17 06:00 (KCl) 10 meq DAILY PO 07/16/17 09:00 (Pepcid) 20 mg BID PO 07/15/17 21:00 Sodium Chloride 1,000 ml @ 110 mls/hr Q9H6M IV 07/15/17 11:17 07/15/17 12:18 (Ativan Inj) 2 mg UNSCH PRN IV PUSH 07/15/17 11:30 (Zofran Inj) 4 mg Q6H PRN IV PUSH 07/15/17 11:30 Ciprofloxacin/ Dextrose 200 ml @ 200 mls/hr Q12H IV 07/15/17 18:00 Exam I&O / VS Vital Signs Date Time Temp Pulse Resp B/P (MAP) Pulse Ox O2 Delivery O2 Flow Rate FiO2 07/15/17 11:30 98.1 48 18 143/65 (91) 97 07/15/17 11:15 07/15/17 11:03 50 23 98 Room Air 07/15/17 07:56 97.2 57 16 111/56 (74) 95 Room Air General: No acute distress Eye: EOMI Respiratory: Non-labored respirations Neurologic: Alert Exam Comments awake, alert, mumbled speech, smiles,looks well, mixed aphasia, difficulty following, eomi, face sym, ou 3-2mm, +paratonia in ue, withdraws in all 4 ext Review/Management Diagnosis/Plan: (1) New onset seizure ICD Codes: R56.9 - Unspecified convulsions Status: Acute Plan: may be associated with uti/dementia abnormal eeg recs start keppra one time dose of iv cerebryx d/c planning tomorrow d/w pt/spouse/daughter (2) Alzheimer's dementia ICD Codes: G30.9 - Alzheimer's disease, unspecified Status: Chronic Plan: severe. lives in [place] (3) UTI (urinary tract infection) ICD Codes: N39.0 - Urinary tract infection, site not specified Status: Acute Plan: per medical Problem Qualifiers (1) Alzheimer's dementia: (2) UTI (urinary tract infection): Mark Kay MD Jul 15, 2017 15:07
[2017-07-15] MEDS: levETIRAcetam 500 MG TAB PO SCH (16:31)
--- NOTE | 2017-07-15 16:50 | HHI.FPPN ---
Subjective Subjective Patient seen and examined with the resident team. Case reviewed and discussed. Please refer to resident H&P for further details regarding history of present illness, ROS, past medical and surgical history, family and social history. In summary, patient is an 82-year-old female presenting from [facility] after a witnessed seizure episode. Patient is seen in the emergency room with family by her side. They report that she seems to be near her baseline from a mental status standpoint. Patient has baseline dementia and intermittently follows commands. She is seen in her bed, smiling. [facility] Objective Objective Last Impressions Head CT 07/15/17 0000 Signed Impressions: Service Date/Time: Saturday, July 15, 2017 08:35 - CONCLUSION: No acute disease. Jasper Brandt MD Chest X-Ray 07/15/17 0000 Signed Impressions: Service Date/Time: Saturday, July 15, 2017 12:59 - CONCLUSION: Normal examination. Tortuous aorta Jasper Brandt MD Laboratory Tests - Abnormals Test 07/15/17 08:15 07/15/17 09:00 07/15/17 09:53 07/15/17 14:39 Activated Partial Thromboplast Time 18.9 SEC Blood Urea Nitrogen 25 MG/DL Creatinine 1.03 MG/DL Albumin 3.1 GM/DL Chloride Level 109 MEQ/L Estimat Glomerular Filtration Rate 52 ML/MIN B-Type Natriuretic Peptide 184 PG/ML Thyroid Stimulating Hormone 3rd Gen 7.430 uIU/ML Urine Turbidity HAZY Urine Occult Blood SMALL Urine Nitrite POS Urine Leukocyte Esterase MOD Urine RBC 19 /hpf Urine WBC 13 /hpf Urine Bacteria OCC /hpf Urine Mucus FEW /lpf Vital Signs 07/15/17 07/15/17 07/15/17 07/15/17 07:56 11:03 11:15 11:30 Temp 97.2 98.1 Pulse 57 50 48 Resp 16 23 18 B/P (MAP) 111/56 (74) 143/65 (91) Pulse Ox 95 98 97 O2 Delivery Room Air Room Air Physical exam GENERAL: Thin elderly female, well nourished. NAD SKIN: Warm and dry. No rashes or lesions. HEAD: Normocephalic. Atraumatic EYES: No scleral icterus. No injection or drainage. ENT: OP clear. No evidence of buccal mucosal damage. NECK: Supple, trachea midline. No JVD or lymphadenopathy. CARDIOVASCULAR: Bradycardic rate with regular rhythm without audible murmurs, gallops, or rubs. RESPIRATORY: Breath sounds equal and clear to auscultation bilaterally. No accessory muscle use. GASTROINTESTINAL: Abdomen soft, mild tenderness over the suprapubic region, nondistended. No rebound or guarding. MUSCULOSKELETAL: No cyanosis, or edema. No calf tenderness. BACK: Nontender without obvious deformity. No CVA tenderness. Neuro: Awake and alert. Intermittently follows commands. Smiling. Moves all extremities. Assessment Assessment 82-year-old female with: Seizure versus syncope Bradycardia History of A. fib Dementia Recurrent UTI with evidence of active UTI Anxiety Hypothyroidism, new onset PLAN PLAN Neurochecks Neurology consult Seizure precautions EEG Telemetry Hold beta south Urine culture and blood culture Empiric antibiotic therapy Resume home meds as appropriate PT consultation Patient seen and examined. Case reviewed and discussed with resident team. Agree with plan of care as discussed with me and documented in the resident note. Destiney Beyer MD Jul 15, 2017 16:50
[2017-07-15] MEDS ORDERED: FOSPHENYTOIN INJ 1,000 MGPE in SODIUM CHLORIDE 0.9% INJ 50 ML IV ONE (17:00)
[2017-07-15] MEDS: CIPROFLOXACIN 400 MG PREMIX 200 ML IV SCH (17:24)
[2017-07-15] MEDS: ENOXAPARIN SODIUM 40 MG/0.4 ML SYRINGE SQ SCH (18:44)
[2017-07-15] MEDS ORDERED: MELATONIN PO SCH (21:00)
[2017-07-15] MEDS ORDERED: LORazepam 1 MG TAB ONE (22:15)
[2017-07-15] MEDS ORDERED: DIVALPROEX SODIUM E.R. 500 MG TAB PO SCH (22:15)
--- NOTE | 2017-07-15 23:32 | MG ---
cc: REGGIE ARREDONOD MD PLEASE REVISE. BLANKS DUE TO INAUDIBLE QUALITY OF DICTATION. Lab No: [id number] Date: 07/15/17 Age: 82 Sex: F Race: DATE OF 1935 HISTORY An 82-year-old female with a history of seizure, severe dementia. DESCRIPTION Frontal sharp waves occurring periodic fashion, underlying delta theta frequencies. Mild EEG variability reactivity. Limited driving photic stimulation. Single EKG showing sinus rhythm with possible premature contractions. INTERPRETATION Abnormal EEG with pseudo periodic frontal waveforms which may be related to advanced dementia, epileptic focus encephalopathy. Clinical correlation. Reggie Arredondo MD MG/EO /9:52 PM /11:24 PM
[2017-07-16] VITALS (7 sets, daily range): BP systolic 107–141; BP diastolic 52–91; PULSE 51–65; RESP 18–20; TEMP 97.4–98.5; O2SAT 95–96
[2017-07-16] MEDS: FAMOTIDINE 20 MG TAB PO SCH ×3 (00:13→21:14)
[2017-07-16] MEDS: SODIUM CHLOR 0.9% 1000 ML INJ 1,000 ML IV SCH ×2 (05:29→14:35)
[2017-07-16] MEDS: levETIRAcetam 500 MG TAB PO SCH ×3 (05:42→17:30)
[2017-07-16] MEDS: CIPROFLOXACIN 400 MG PREMIX 200 ML IV SCH ×2 (05:43→17:30)
[2017-07-16] MEDS: LEVOTHYROXINE SODIUM 100 MCG TAB PO SCH (05:52)
[2017-07-16] MEDS ORDERED: LEVOTHYROXINE SODIUM 88 MCG TAB PO SCH (06:00)
[2017-07-16 06:16] LABS: HEMATOCRIT 33.5 % (35.0-46.0); MEAN CELL VOLUME 94.9 FL (80.0-100.0); MEAN CORPUSCULAR HEMOGLOBIN 32.3 PG (27.0-34.0); PLATELET COUNT 141 TH/MM3 (150-450); RED BLOOD COUNT 3.53 MIL/MM3 (4.00-5.30); RED CELL DISTRIBUTION WIDTH 13.8 % (11.6-17.2); REVIEW FLAG FINAL; WHITE BLOOD COUNT 4.8 TH/MM3 (4.0-11.0)
[2017-07-16 06:46] LABS: POTASSIUM 4.2 MEQ/L (3.5-5.1)
[2017-07-16] MEDS: ASPIRIN 81 MG CHEW TAB CHEW SCH (08:43)
[2017-07-16] MEDS: POTASSIUM CHLORIDE 10 MEQ CAP PO SCH (08:43)
[2017-07-16] MEDS: DIVALPROEX SODIUM SPRINKLES 125 MG CAP PO SCH ×2 (08:44→21:07)
--- NOTE | 2017-07-16 08:47 | HHI.PR ---
Review/Management Diagnosis/Plan: (1) New onset seizure ICD Codes: R56.9 - Unspecified convulsions Status: Acute Plan: may be associated with uti/dementia abnormal eeg lethargy may be ativan last night; should clear up recs continue keppra/depakote f./u mri brain, eeg d/c planning to [place] (2) Alzheimer's dementia ICD Codes: G30.9 - Alzheimer's disease, unspecified Status: Chronic Plan: severe. lives [place] (3) UTI (urinary tract infection) ICD Codes: N39.0 - Urinary tract infection, site not specified Status: Acute Plan: per medical Subjective Subjective Comments No acute events reported given ativan last night for eeg result Active Medications Current Medications Medications (Trade) Dose Ordered Sig/Beata Route Start Time Stop Time Status Last Admin (NS Flush) 2 ml UNSCH PRN IVF 07/15/17 08:00 (Aspirin Chew) 81 mg DAILY CHEW 07/16/17 09:00 (KCl) 10 meq DAILY PO 07/16/17 09:00 (Pepcid) 10 mg BID PO 07/15/17 21:00 07/16/17 00:13 Sodium Chloride 1,000 ml @ 110 mls/hr Q9H6M IV 07/15/17 11:17 07/15/17 00:24 (Ativan Inj) 2 mg UNSCH PRN IV PUSH 07/15/17 11:30 (Zofran Inj) 4 mg Q6H PRN IV PUSH 07/15/17 11:30 Ciprofloxacin/ Dextrose 200 ml @ 200 mls/hr Q12H IV 07/15/17 18:00 07/16/17 05:43 (Keppra) 500 mg Q12H PO 07/15/17 16:00 07/16/17 05:42 (Pneumovax-23 Inj) 25 mcg ONCE ONCE IM 07/16/17 10:00 07/16/17 10:01 (Lovenox Inj) 40 mg Q24H SQ 07/15/17 18:00 07/15/17 18:44 (Synthroid) 100 mcg DAILY@0600 PO 07/16/17 06:00 07/16/17 05:52 (Depakote Sprinkles) 500 mg BID PO 07/16/17 09:00 Allergies Allergies Coded Allergies *MDRO Multi-Drug Resistant Organism (Verified Allergy, Unknown, 12/25/16) Review of Systems All other ROS: ROS reviewed as documented in chart Exam I&O / VS Vital Signs Date Time Temp Pulse Resp B/P (MAP) Pulse Ox O2 Delivery O2 Flow Rate FiO2 07/16/17 07:20 55 07/16/17 05:04 97.4 53 18 107/52 (70) 95 07/16/17 00:30 98.4 57 20 130/91 (104) 95 07/15/17 22:15 94 07/15/17 21:00 97.6 55 20 158/79 (105) 96 07/15/17 20:02 48 07/15/17 16:00 98.5 77 18 170/79 (109) 93 07/15/17 11:30 98.1 48 18 143/65 (91) 97 07/15/17 11:15 07/15/17 11:03 50 23 98 Room Air General: No acute distress Eye: EOMI Respiratory: Non-labored respirations Neurologic: Alert Exam Comments drowsy but arousable, not sustaining attention, eomi, face sym, ou 3-2mm, + paratonia in ue, withdraws in all 4 ext Objective Micro and Labs Laboratory Tests Test 07/15/17 09:00 07/15/17 09:53 07/15/17 16:33 07/16/17 05:56 Urine Color YELLOW Urine Turbidity HAZY Urine pH 7.0 Urine Specific [place] 1.016 Urine Protein NEG Urine Glucose (UA) NEG Urine Ketones NEG Urine Occult Blood SMALL Urine Nitrite POS Urine Bilirubin NEG Urine Urobilinogen LESS THAN 2.0 Urine Leukocyte Esterase MOD Urine RBC 19 Urine WBC 13 Urine Squamous Epithelial Cells 4 Urine Bacteria OCC Urine Mucus FEW Microscopic Urinalysis Comment CATH-CULTURE IND Urine Opiates Screen NEG Urine Barbiturates Screen NEG Urine Amphetamines Screen NEG Urine Benzodiazepines Screen NEG Urine Cocaine Screen NEG Urine Cannabinoids Screen NEG Lactic Acid Level 1.4 Troponin I LESS THAN 0.02 White Blood Count 4.8 Red Blood Count 3.53 Hemoglobin 11.4 Hematocrit 33.5 Mean Corpuscular Volume 94.9 Mean Corpuscular Hemoglobin 32.3 Mean Corpuscular Hemoglobin Concent 34.0 Red Cell Distribution Width 13.8 Platelet Count 141 Mean Platelet Volume 9.7 Blood Urea Nitrogen 17 Creatinine 0.85 Random Glucose 72 Calcium Level 8.2 Sodium Level 144 Potassium Level 4.2 Chloride Level 110 Carbon Dioxide Level 27.0 Anion Gap 7 Estimat Glomerular Filtration Rate 64 Date/Time Source Procedure Growth Status 07/15/17 09:55 Blood Peripheral Aerobic Blood Culture Pending Received 07/15/17 09:55 Blood Peripheral Anaerobic Blood Culture Pending Received 07/15/17 09:00 Urine Catheterized Urine Urine Culture Pending Received Problem Qualifiers (1) Alzheimer's dementia: (2) UTI (urinary tract infection): Mark Kay MD Jul 16, 2017 08:47
[2017-07-16] MEDS ORDERED: PNEUMOCOCCAL POLYVALENT INJ 25 MCG/0.5 ML SYR IM ONE (10:00)
--- NOTE | 2017-07-16 10:45 | EKG ---
Date Performed: 07/15/2017 Time Performed: 14:09:32 PTAGE: 82 years EKG: Sinus bradycardia. Poor R wave progression - probable normal variant Borderline ECG PREVIOUS TRACING : 07/15/2017 08.13 DOCTOR: Genaro Fritz Interpretating Date/Time 07/16/2017 10:43:40
--- NOTE | 2017-07-16 15:07 | HHI.FPPN ---
Subjective Remarks Patient sitting up in bed, in no apparent distress. Eyes closed but smiling. Rigid upper extremities. Full plate of food at bedside. Non-verbal this morning. Objective Vitals Vital Signs Date Time Temp Pulse Resp B/P (MAP) Pulse Ox O2 Delivery O2 Flow Rate FiO2 07/16/17 12:00 98.2 65 18 130/63 (85) 95 07/16/17 08:00 97.8 51 18 141/59 (86) 96 07/16/17 07:20 55 07/16/17 05:04 97.4 53 18 107/52 (70) 95 07/16/17 00:30 98.4 57 20 130/91 (104) 95 07/15/17 22:15 94 07/15/17 21:00 97.6 55 20 158/79 (105) 96 07/15/17 20:02 48 07/15/17 16:00 98.5 77 18 170/79 (109) 93 I/O 07/15/17 07/15/17 07/15/17 07/16/17 07/16/17 07/16/17 07:00 15:00 23:00 07:00 15:00 23:00 Intake Total 1520 ml 200 ml Balance 1520 ml 200 ml Intake IV Total 1520 ml 200 ml # Voids 1 Result Diagram: 07/16/17 0556 07/16/17 0556 Imaging Last [address] 07/15/17 0000 Signed Impressions: Service Date/Time: Saturday, July 15, 2017 08:35 - CONCLUSION: No acute disease. Jasper Brandt MD Chest X-Ray 07/15/17 0000 Signed Impressions: Service Date/Time: Saturday, July 15, 2017 12:59 - CONCLUSION: Normal examination. Tortuous aorta Jasper Brandt MD Objective Remarks General: Sitting up in bed, no distress. Eyes closed, smiling. Skin: No rashes or lesions HEENT: Normocephalic, has conjunctival pallor that is mild, no nasal discharge, dentures in place CV: RRR, no murmur, normal pulses Lungs: CTAB Abdomen: Soft, nontender, nondistended, normal bowel sounds. Ext: No swelling. Rigidity of upper extremities. A/P Assessment and Plan 82 year old female with a history of dementia and recurrent UTI's presents from her snf with a new onset tonic-clonic seizure and with bradycardia into the low 40's. She has evidence of urinary tract infection via urinalysis, but no leukocytosis or fever. Discharge Planning Pending final urine culture and appropriate antibiotic selection, MRI brain results, stable clinical status. Will likely return to her snf at discharge. Problem List: (1) New onset seizure ICD Codes: R56.9 - Unspecified convulsions Status: Acute Plan: Tonic-clonic seizure (new onset) in the shower witnessed by the staff at [facility]; pt was incontinent of stool at that time and appeared to have a post-ictal period before returning to baseline. EEG reporting frontal sharp waves in a periodic fashion, with underlying delta theta frequencies. May be related to dementia, encephalopathy, or epileptic seizure. CT head negative. -Ativan 2mg IV PRN if seizure repeats -Seizure precautions -Neuro checks regularly -Continue Depakote and Keppra, check Depakote level. - Follow up on MRI brain. (2) Bradycardia ICD Codes: R00.1 - Bradycardia, unspecified Plan: Sinus bradycardia, difficult to determine whether it is symptomatic versus asymptomatic given patient's dementia. - Cardiology consulted, signed off. - Holding her home metoprolol - Not a candidate for pacemaker. (3) UTI (urinary tract infection) ICD Codes: N39.0 - Urinary tract infection, site not specified Status: Acute Plan: UA leukocyte esterase and nitrite positive with RBCs, WBCs, bacteria, mucous. No leukocytosis or fevers. - Follow urine cultures. - Cipro 400mg IV q12h, narrow based on sensitivities. - Consult ID if ESBL bacteria. (4) Hypothyroidism ICD Codes: E03.9 - Hypothyroidism, unspecified Status: Acute Plan: TSH elevated to 7.430 on 07/15 -Hold home dose 88mcg levothyroxine /day after 07/15 -Start Levothyroxine 100mcg/day 07/16 (5) Alzheimer's dementia ICD Codes: G30.9 - Alzheimer's disease, unspecified Status: Chronic Plan: Stable. - Delirium precautions - Will likely return to snf upon discharge (6) FEN/GI/PPx Status: Acute Plan: Fluids: PO fluids Electrolytes: Monitor Diet: mechanical soft with thin liquids DVT prophylaxis: Enoxaparin 40 mg daily Problem Qualifiers (1) UTI (urinary tract infection): (2) Alzheimer's dementia: Jonah Watt MD R3 Jul 16, 2017 15:07
[2017-07-16] MEDS ORDERED: levETIRAcetam INJ 500 MG in SODIUM CHLORIDE 0.9% INJ 100 ML IV SCH (16:00)
[2017-07-16] MEDS: ENOXAPARIN SODIUM 40 MG/0.4 ML SYRINGE SQ SCH (17:30)
[2017-07-16] MEDS: levETIRAcetam INJ 500 MG in SODIUM CHLORIDE 0.9% INJ 100 ML IV SCH (19:02)
[2017-07-17 00:34] VITALS: BP 133/60; PULSE 58; RESP 18; TEMP 97.3; O2SAT 98
[2017-07-17] MEDS: CIPROFLOXACIN 400 MG PREMIX 200 ML IV SCH ×2 (05:32→18:16)
[2017-07-17] MEDS: levETIRAcetam INJ 500 MG in SODIUM CHLORIDE 0.9% INJ 100 ML IV SCH ×2 (05:36→17:21)
[2017-07-17 05:37] VITALS: BP 176/77; PULSE 60; RESP 18; TEMP 98.6; O2SAT 95
[2017-07-17] MEDS: LEVOTHYROXINE SODIUM 100 MCG TAB PO SCH (05:37)
[2017-07-17 06:19] LABS: HEMATOCRIT 35.5 % (35.0-46.0); MEAN CELL VOLUME 94.3 FL (80.0-100.0); MEAN CORPUSCULAR HEMOGLOBIN 31.5 PG (27.0-34.0); MEAN CORPUSCULAR HGB CONC 33.3 % (32.0-36.0); PLATELET COUNT 149 TH/MM3 (150-450); RED BLOOD COUNT 3.77 MIL/MM3 (4.00-5.30); RED CELL DISTRIBUTION WIDTH 13.6 % (11.6-17.2); REVIEW FLAG FINAL; WHITE BLOOD COUNT 4.3 TH/MM3 (4.0-11.0)
[2017-07-17 06:43] LABS: BICARBONATE 24.1 MEQ/L (21.0-32.0); POTASSIUM 3.9 MEQ/L (3.5-5.1)
[2017-07-17 08:00] VITALS: BP 144/80; PULSE 56; PULSE 66; RESP 16; TEMP 97.3; O2SAT 97
[2017-07-17] MEDS ORDERED: Vancomycin Consult Pharmacy 1 EA OTHER SCH (08:45)
--- NOTE | 2017-07-17 08:46 | EKG ---
Date Performed: 07/15/2017 Time Performed: 08:13:37 PTAGE: 82 years EKG: SINUS BRADYCARDIA BORDERLINE ECG INTERPRETATION BASED ON A DEFAULT AGE OF 42 YEARS NO PREVIOUS TRACING DOCTOR: Jasper Guido Interpretating Date/Time 07/17/2017 08:44:25
--- NOTE | 2017-07-17 09:09 | RADRPT ---
EXAM DATE/TIME: 07/17/2017 08:38 [facility] COMPARISON: No previous studies available for comparison. INDICATIONS : Seizures. MEDICAL HISTORY : Alzheimer's. SURGICAL HISTORY : Discectomy, lumbar. Cholecystectomy. ENCOUNTER: Initial ACUITY: 1 day PAIN SCORE: LOCATION: cranial TECHNIQUE: Multiplanar, multisequence MRI of the brain was performed without contrast. FINDINGS: CEREBRUM: Moderate diffuse cerebral atrophy. The ventricles are normal for degree of atrophy. No evidence of m idline shift, mass lesion, hemorrhage or acute infarction. No extraaxial fluid collections are seen. The pituitary gland and suprasellar cistern are normal in configuration. WHITE MATTER: Mild to moderate periventricular and scattered deep white matter focal T2 prolongation. POSTERIOR FOSSA: The cerebellum and brainstem are intact. The 4th ventricle is midline. The cerebellopontine angle is unremarkable. The cerebellar tonsils are normal in position. DIFFUSION IMAGING: No focal areas of restricted diffusion are seen. No evidence of acute infarction. EXTRACRANIAL: The visualized portions of the orbits and paranasal sinuses are unremarkable. CONCLUSION: 1. Senescent changes with mild/moderate small vessel ischemic white matter demyelination. 2. Otherwise, unremarkable MRI examination without acute abnormality. Del Mejia MD on July 17, 2017 at 9:01 Board Certified Radiologist. This report was verified electronically.
[2017-07-17] MEDS ORDERED: VANCOMYCIN 1,000 MG/NS 250 ML IV ONE ×2 (09:15)
[2017-07-17] MEDS ORDERED: VANCOMYCIN INJ 1,000 MG in SODIUM CHLOR 0.9% 250 ML INJ 250 ML IV SCH (10:00)
[2017-07-17] MEDS: FAMOTIDINE 20 MG TAB PO SCH ×2 (10:04→21:13)
[2017-07-17] MEDS: POTASSIUM CHLORIDE 10 MEQ CAP PO SCH (10:04)
[2017-07-17] MEDS: ASPIRIN 81 MG CHEW TAB CHEW SCH (10:04)
[2017-07-17] MEDS: DIVALPROEX SODIUM SPRINKLES 125 MG CAP PO SCH ×2 (10:05→21:13)
--- NOTE | 2017-07-17 11:49 | HHI.FPPN ---
Subjective Remarks Ms Gustafson had no acute events overnight; however, her urine culture is positive for E coli and blood culture is positive for gram positive cocci, in spite of the pt being asymptomatic--afebrile and WBC 4.3. There have been no noted seizures overnight. She opens her eyes on command and drank orange juice through a straw while we were in the room. Pt can mutter words and follow a few simple commands. Objective Vitals Vital Signs Date Time Temp Pulse Resp B/P (MAP) Pulse Ox O2 Delivery O2 Flow Rate FiO2 07/17/17 08:00 97.3 56 16 144/80 (101) 97 07/17/17 05:37 98.6 60 18 176/77 (110) 95 07/17/17 00:34 97.3 58 18 133/60 (84) 98 07/16/17 23:55 63 07/16/17 21:12 98.5 63 18 133/58 (83) 95 07/16/17 12:00 98.2 65 18 130/63 (85) 95 I/O 07/16/17 07/16/17 07/16/17 07/17/17 07/17/17 07/17/17 07:00 15:00 23:00 07:00 15:00 23:00 Intake Total 200 ml 613 ml 200 ml Balance 200 ml 613 ml 200 ml Intake Oral 120 ml IV Total 200 ml 493 ml 200 ml # Voids 1 3 2 Result Diagram: 07/17/17 0610 07/17/17 0555 Imaging Last 48 hours Impressions Brain MRI 07/17/17 0000 Signed Impressions: Service Date/Time: Monday, July 17, 2017 08:38 - CONCLUSION: 1. Senescent changes with mild/moderate small vessel ischemic white matter demyelination. 2. Otherwise, unremarkable MRI examination without acute abnormality. Del Mejia MD Objective Remarks General: Lying in bed, no distress. Eyes closed, smiling. Opened eyes upon command. Was able to suck orange juice through a straw. Skin: No rashes. A few senile purpura on bilateral hands and forearms. HEENT: Normocephalic, atraumatic. Mild conjunctival pallor, no nasal discharge, dentures in place. Uvula midline. No oral sores. CV: RRR, no murmur, rub or gallop. Normal pulses peripherally. Lungs: CTAB. No increased WOB. Abdomen: Soft, nontender, nondistended, normal bowel sounds. Ext: No swelling. Rigidity of upper extremities. Medications and IVs Current Medications Medications (Trade) Dose Ordered Sig/Beata Route Start Time Stop Time Status Last Admin (NS Flush) 2 ml UNSCH PRN IVF 07/15/17 08:00 (Aspirin Chew) 81 mg DAILY CHEW 07/16/17 09:00 07/17/17 10:04 (KCl) 10 meq DAILY PO 07/16/17 09:00 07/17/17 10:04 (Pepcid) 10 mg BID PO 07/15/17 21:00 07/17/17 10:04 (Ativan Inj) 2 mg UNSCH PRN IV PUSH 07/15/17 11:30 (Zofran Inj) 4 mg Q6H PRN IV PUSH 07/15/17 11:30 Ciprofloxacin/ Dextrose 200 ml @ 200 mls/hr Q12H IV 07/15/17 18:00 07/17/17 05:32 (Lovenox Inj) 40 mg Q24H SQ 07/15/17 18:00 07/16/17 17:30 (Synthroid) 100 mcg DAILY@0600 PO 07/16/17 06:00 07/17/17 05:37 (Depakote Sprinkles) 500 mg BID PO 07/16/17 09:00 07/17/17 10:05 Levetriacetam 500 mg/Sodium Chloride 105 ml @ 420 mls/hr Q12H IV 07/16/17 18:00 07/17/17 05:36 Pharmacy Profile Note 0 ml @ 0 mls/hr UNSCH OTHER 07/17/17 08:45 Vancomycin HCl 1000 mg/Sodium Chloride 250 ml @ 250 mls/hr Q24H IV 07/18/17 10:00 Miscellaneous Information SPECIFIC LAB TO BE ... ONCE ONCE .XX 07/20/17 09:45 07/20/17 09:46 Urinary Catheter: No Vascular Central Line Catheter: No A/P Assessment and Plan 82 year old female with a history of Alzheimer's dementia and recurrent UTI's presents from her senior living with a new onset tonic-clonic seizure and with bradycardia into the low 40's. She has an E coli UTI and today blood cultures are positive for gram positive cocci, but no leukocytosis or fever. Discharge Planning Pending final urine culture and appropriate antibiotic selection, MRI brain results, stable clinical status. Will likely return to her senior living at discharge. Problem List: (1) Bacteremia ICD Codes: R78.81 - Bacteremia Plan: Blood cx from 07/15 positive for gram positive cocci in pairs -Started Vancomycin 1gm IV q12h empirically awaiting speciation and susceptibility -ID consulted, appreciate recommendation -Pharmacy consult for assist with dosing (2) New onset seizure ICD Codes: R56.9 - Unspecified convulsions Status: Acute Plan: Tonic-clonic seizure (new onset) in the shower witnessed by the staff at [facility]; pt was incontinent of stool at that time and appeared to have a post-ictal period before returning to baseline. EEG reporting frontal sharp waves in a periodic fashion, with underlying delta theta frequencies. May be related to dementia, encephalopathy, or epileptic seizure. CT head negative. -Ativan 2mg IV PRN if seizure repeats -Seizure precautions -Neuro checks regularly -Continue Depakote sprinkles 500mg PO BID -Continue Keppra -Depakote level therapeutic at 52. -Brain MRI results as above -EEG: theta rhythm frequency 6-7 Hz w/some muscle artifact present; no lateralizing features identified; no epileptiform discharges seen. INTERPRETATION Mildly abnormal study consistent with a etsn-ty-uaqangdp encephalopathy. (3) Alzheimer's dementia ICD Codes: G30.9 - Alzheimer's disease, unspecified Status: Chronic Plan: Stable. - Delirium precautions - Will likely return to senior living upon discharge (4) Bradycardia ICD Codes: R00.1 - Bradycardia, unspecified Plan: Sinus bradycardia on admit, but found to be hypothyroid (TSH 7.43) on admit on levothyroxine 88mcg; have increase levothyroxine to 100mcg/day; difficult to determine whether it is symptomatic versus asymptomatic given patient's dementia. - Cardiology consulted, signed off. - Holding her home metoprolol with some correction in HR into 60s, but intermittently into 50s - Not a candidate for pacemaker -Tele - Monitor daily labs - ECHO: LV systolic function normal w/EF: 55-60%, normal wall thickness, LV normal size, mild tricuspid valve regurg; estimated Pulm Artery pressure 35.4mmHg; mild mitral valve annular calcification (5) UTI (urinary tract infection) ICD Codes: N39.0 - Urinary tract infection, site not specified Status: Acute Plan: UA leukocyte esterase and nitrite positive with RBCs, WBCs, bacteria, mucous. No leukocytosis or fevers. - Urine cx positive for E coli - Cipro 400mg IV q12h - Consulted ID, appreciate recommendations (6) Hypothyroidism ICD Codes: E03.9 - Hypothyroidism, unspecified Status: Acute Plan: TSH elevated to 7.430 on 07/15 -Hold home dose 88mcg levothyroxine /day after 07/15 -Start Levothyroxine 100mcg/day 07/16 (7) FEN/GI/PPx Status: Acute Plan: Fluids: PO fluids Electrolytes: Monitor, replace K+ with home dose KCl 10meq PO daily Diet: mechanical soft with thin liquids DVT prophylaxis: Enoxaparin 40 mg daily Continue home Pepcid 20mg/bid ASA 81mg chew daily for stroke PPx Speech therapy: no overt signs of aspiration; mech soft diet with thin liquids and supervision/assistance with feeding -Nursing order to assist with feeding -Ensure supplement Problem Qualifiers (1) Alzheimer's dementia: (2) UTI (urinary tract infection): Ricardo Cope MD R1 Jul 17, 2017 11:49
[2017-07-17 12:00] VITALS: BP 128/69; PULSE 90; RESP 16; TEMP 97.2; O2SAT 91
--- NOTE | 2017-07-17 12:37 | HHI.PR ---
Review/Management Diagnosis dementia Seizures--stable on current therapy. VPA level is 52 Diagnosis/Plan: (1) New onset seizure ICD Codes: R56.9 - Unspecified convulsions Status: Acute Plan: may be associated with uti/dementia abnormal eeg lethargy may be ativan last night; should clear up recs continue keppra/depakote f./u mri brain, eeg d/c planning to [facility] in am (2) Alzheimer's dementia ICD Codes: G30.9 - Alzheimer's disease, unspecified Status: Chronic Plan: severe. lives in [place] (3) UTI (urinary tract infection) ICD Codes: N39.0 - Urinary tract infection, site not specified Status: Acute Plan: per medical Subjective Subjective Comments No acute events reported No recurrent seizures on depakote and keppra Active Medications Current Medications Medications (Trade) Dose Ordered Sig/Beata Route Start Time Stop Time Status Last Admin (NS Flush) 2 ml UNSCH PRN IVF 07/15/17 08:00 (Aspirin Chew) 81 mg DAILY CHEW 07/16/17 09:00 07/17/17 10:04 (KCl) 10 meq DAILY PO 07/16/17 09:00 07/17/17 10:04 (Pepcid) 10 mg BID PO 07/15/17 21:00 07/17/17 10:04 (Ativan Inj) 2 mg UNSCH PRN IV PUSH 07/15/17 11:30 (Zofran Inj) 4 mg Q6H PRN IV PUSH 07/15/17 11:30 Ciprofloxacin/ Dextrose 200 ml @ 200 mls/hr Q12H IV 07/15/17 18:00 07/17/17 05:32 (Lovenox Inj) 40 mg Q24H SQ 07/15/17 18:00 07/16/17 17:30 (Synthroid) 100 mcg DAILY@0600 PO 07/16/17 06:00 07/17/17 05:37 (Depakote Sprinkles) 500 mg BID PO 07/16/17 09:00 07/17/17 10:05 Levetriacetam 500 mg/Sodium Chloride 105 ml @ 420 mls/hr Q12H IV 07/16/17 18:00 07/17/17 05:36 Pharmacy Profile Note 0 ml @ 0 mls/hr UNSCH OTHER 07/17/17 08:45 Vancomycin HCl 1000 mg/Sodium Chloride 250 ml @ 250 mls/hr Q24H IV 07/18/17 10:00 Miscellaneous Information SPECIFIC LAB TO BE ... ONCE ONCE .XX 07/20/17 09:45 07/20/17 09:46 Allergies Allergies Coded Allergies *MDRO Multi-Drug Resistant Organism (Verified Allergy, Unknown, 12/25/16) Review of Systems All other ROS: ROS reviewed as documented in chart Exam I&O / VS Vital Signs Date Time Temp Pulse Resp B/P (MAP) Pulse Ox O2 Delivery O2 Flow Rate FiO2 07/17/17 08:00 97.3 56 16 144/80 (101) 97 07/17/17 05:37 98.6 60 18 176/77 (110) 95 07/17/17 00:34 97.3 58 18 133/60 (84) 98 07/16/17 23:55 63 07/16/17 21:12 98.5 63 18 133/58 (83) 95 General: No acute distress Eye: EOMI Respiratory: Non-labored respirations Neurologic: Alert Exam Comments lethargic, does not follow commands PERRL EOM-intact motor--generalized weakness but no focal deficits Objective Micro and Labs Laboratory Tests Test 07/17/17 05:55 07/17/17 06:10 Blood Urea Nitrogen 16 Creatinine 0.99 Random Glucose 91 Calcium Level 8.3 Sodium Level 143 Potassium Level 3.9 Chloride Level 110 Carbon Dioxide Level 24.1 Anion Gap 9 Estimat Glomerular Filtration Rate 54 Valproic Acid (Depakene) Level 52 White Blood Count 4.3 Red Blood Count 3.77 Hemoglobin 11.8 Hematocrit 35.5 Mean Corpuscular Volume 94.3 Mean Corpuscular Hemoglobin 31.5 Mean Corpuscular Hemoglobin Concent 33.3 Red Cell Distribution Width 13.6 Platelet Count 149 Mean Platelet Volume 9.2 Date/Time Source Procedure Growth Status 07/15/17 09:55 Blood Peripheral Aerobic Blood Culture - Preliminary Gram Positive Cocci Resulted 07/15/17 09:55 Anaerobic Blood Culture - Preliminary Gram Positive Cocci Resulted 07/15/17 09:00 Urine Catheterized Urine Urine Culture - Final Escherichia Coli Complete Problem Qualifiers (1) Alzheimer's dementia: (2) UTI (urinary tract infection): Angel Rothman PhD Jul 17, 2017 12:37
--- NOTE | 2017-07-17 14:55 | MG ---
cc: ANABEL LOZA M.D. Lab No: [id number] Date: 07/17/2017 Age: Sex: F Race: TECHNIQUE This is a 17 channel EEG. DESCRIPTION The background rhythm reveals a theta rhythm frequency 6-7 Hz amplitude 10-20 microvolts. There is some muscle artifact present. There are no lateralizing features identified. There are no epileptiform discharges seen. The photic results in a poor driving response. INTERPRETATION Mildly abnormal study consistent with a xila-mo-zpoyrthi encephalopathy. MD YOEL Marshall/gui /1:41 PM /2:51 PM
--- NOTE | 2017-07-17 15:16 | ECHRPT ---
Indication: Syncope and collapse CONCLUSIONS The left ventricular systolic function is normal with an estimated ejection fraction in the range of 55-60%. Wall thickness is normal. Normal left ventricular size. There is mild tricuspid valve regurgitation. The estimated pulmonary arterial pressure is 35.4 mmHg. Mild mitral annular calcification. BP: 133 / 60 HR: 60 Rhythm: Other MEASUREMENTS (Male / Female) Normal Values Technical Quality:Technically difficult study 2D ECHO LV Diastolic Diameter PLAX 4.5 cm 4.2 - 5.9 / 3.9 - 5.3 cm LV Systolic Diameter PLAX 3.4 cm IVS Diastolic Thickness 0.8 cm 0.6 - 1.0 / 0.6 - 0.9 cm LVPW Diastolic Thickness 0.8 cm 0.6 - 1.0 / 0.6 - 0.9 cm LV Relative Wall Thickness 0.3 LVOT Diameter 2.1 cm M-MODE Aortic Root Diameter MM 2.4 cm LA Systolic Diameter MM 2.8 cm LA Ao Ratio MM 1.2 AV Cusp Separation MM 1.5 cm DOPPLER AV Peak Velocity 181.0 cm/s AV Peak Gradient 13.1 mmHg LVOT Peak Velocity 108.0 cm/s LVOT Peak Gradient 4.7 mmHg AV Area Cont Eq pk 2.1 cm Mitral E Point Velocity 103.0 cm/s Mitral A Point Velocity 82.4 cm/s Mitral E to A Ratio 1.3 LV E' Lateral Velocity 12.7 cm/s Mitral E to LV E' Lateral Ratio 8.1 LV E' Septal Velocity 9.1 cm/s Mitral E to LV E' Septal Ratio 11.4 TR Peak Velocity 252.0 cm/s TR Peak Gradient 25.4 mmHg Right Atrial Pressure 10.0 mmHg Pulmonary Artery Systolic Pressu 35.4 mmHg Right Ventricular Systolic Press 35.4 mmHg PV Peak Velocity 107.0 cm/s PV Peak Gradient 4.6 mmHg FINDINGS LEFT VENTRICLE The left ventricular systolic function is normal with an estimated ejection fraction in the range of 55-60%. Wall thickness is normal. Normal left ventricular size. RIGHT VENTRICLE Normal right ventricular size and systolic function. LEFT ATRIUM The left atrial size is normal. RIGHT ATRIUM The right atrial size is normal. ATRIAL SEPTUM Normal atrial septal thickness without atrial level shunting by limited color doppler interrogation. AORTA The aortic root and proximal ascending aorta are normal in size on limited imaging. MITRAL VALVE Mild mitral annular calcification. AORTIC VALVE Trileaflet aortic valve. No aortic valve stenosis or regurgitation. TRICUSPID VALVE There is mild tricuspid valve regurgitation. The estimated pulmonary arterial pressure is 35.4 mmHg. PULMONARY VALVE No pulmonary valve regurgitation or stenosis. VESSELS The inferior vena cava is normal in size. PERICARDIUM No pericardial effusion. Jasper Guido MD, FACC (Electronically Signed) Final Date:17 July 2017 15:15
[2017-07-17 16:00] VITALS: BP 121/59; PULSE 77; TEMP 98.1
[2017-07-17] MEDS: ENOXAPARIN SODIUM 40 MG/0.4 ML SYRINGE SQ SCH (17:21)
--- NOTE | 2017-07-17 18:10 | RADRPT ---
EXAM DATE/TIME: 07/15/2017 14:16 [facility] COMPARISON: No previous studies available for comparison. INDICATIONS : Syncope. MEDICAL HISTORY : Gastroesophageal reflux disease. Hypercholesterolemia. Hypertension. Alzheimer's disease. coronary ar jorge disease. renal failure stage iii. bladder fistula. anemia. SURGICAL HISTORY : Kidney surgery. Bladder lift. ENCOUNTER: Initial ACUITY: 1 day PAIN SCORE: Nonresponsive. LOCATION: Bilateral neck PEAK SYSTOLIC VELOCITIES (cm/sec): ICA/CCA RATIO: Right: 0.7 Left: 0.9 ICA: Right: 60 Left: 80 CCA: Right: 88 Left: 86 ECA: Right: 87 Left: 76 VERTEBRAL: Right: 52 antegrade Left: 54 antegrade Elevated flow velocities and ICA/CCA ratios have been found to correlate with increased degrees of vessel stenosis, calculated as percentage of diameter relative to a normal segment of distal ICA/CCA FINDINGS: RIGHT CAROTID: No significant stenosis is visualized. The waveforms are within normal limits. LEFT CAROTID: There is shadowing in the region of the carotid bulb/proximal internal carotid artery characteristic of calcified plaque. No significant stenosis is visualized. The waveforms are within normal limits. VERTEBRAL ARTERIES: Antegrade flow is seen in both vertebral arteries. MISCELLANEOUS: None. CONCLUSION: Left internal calcified plaque with hemodynamic profile characteristic of less than 50% stenosis isai jordan. Martin Spears MD on July 17, 2017 at 18:06 Board Certified Radiologist. This report was verified electronically.
[2017-07-17 20:00] VITALS: BP 122/56; PULSE 84; RESP 20; TEMP 97.8; O2SAT 100
--- NOTE | 2017-07-17 20:04 | PD.ID.CON ---
History of Present Illness Service ID Consult Requested By Dr Cope Reason for Consult UTI and gram positive bacteremia Primary Care Physician Unknown Diagnoses: History of Present Illness 82 yo female with advenced Alsheimer disease and frequent UTIs presentes from halfway with witnessed tonic-clonic seizure while in the shower. Staff was there and were able to help her to the ground. She does not have any apparent injuries. She was initially GCS 3 when EMS arrived, stool incontinence, and slowly recovered, awake, responsive to painful stimuli, Pt practicaclly non verbal at baseline On admission afebrile, with normal WBC and no lactic acidosis Her blood clx are growing GPC in both bottles of 1/2 sets Her urine clx is positive for E.coli, sensitive to everythiong except tetraccyline UA abnormal, cw UTI (pyuria, + nitrates) Review of Systems ROS Limitations: Clinical Condition, Altered Mental Status Past Family Social History Allergies: Coded Allergies: *MDRO Multi-Drug Resistant Organism (Verified Allergy, Unknown, 12/25/16) ESBL K - pneumoniae urine 05/2013 Past Medical History anxiety frequent UTIs alzheimer's dementia -- dx 4 years ago scan of records indicates Afib Past Surgical History gallstones 1 yr ago at [place] couple of surgeries by Dr Garcia Bladder sling 40 yrs ago Active Ordered Medications Medications where reviewed in EMR Antibiotics Include: vanco cipro Family History Mother of PA at age 68 Father - not known Social History Lives [facility] x14 months visits daily 4 children No EtOH, tobacco, drugs Physical Exam Vital Signs Vital Signs Date Time Temp Pulse Resp B/P (MAP) Pulse Ox O2 Delivery O2 Flow Rate FiO2 07/17/17 16:00 98.1 77 121/59 (79) 07/17/17 12:00 97.2 90 16 128/69 (88) 91 07/17/17 08:00 66 07/17/17 08:00 97.3 56 16 144/80 (101) 97 07/17/17 05:37 98.6 60 18 176/77 (110) 95 07/17/17 00:34 97.3 58 18 133/60 (84) 98 07/16/17 23:55 63 07/16/17 21:12 98.5 63 18 133/58 (83) 95 Physical Exam CONSTITUTIONAL/GENERAL: This is an adequately nourished patient, in no apparent distress. TUBES/LINES/DRAINS: SKIN: No jaundice, rashes, or lesions. Skin temperature appropriate. Not diaphoretic. HEAD: Atraumatic. Normocephalic. EYES: Pupils equal and round and reactive. Extraocular motions intact. No scleral icterus. No injection or drainage. Fundi not examined. ENT: Hearing grossly normal. Oral mucosae without bleeding or purulent drainage. Throat without visible erythema, exudates, masses, or lesions. NECK: Trachea midline. Supple, nontender. CARDIOVASCULAR: Regular rate and rhythm without murmurs, gallops, or rubs. No JVD. Peripheral pulses symmetric. RESPIRATORY/CHEST: Symmetric, unlabored respirations. Clear to auscultation. Breath sounds equal bilaterally. No wheezes, rales, or rhonchi. GASTROINTESTINAL: Abdomen soft, non-tender, nondistended. No hepato-splenomegaly , or palpable masses. No guarding. Bowel sounds present. GENITOURINARY: Without palpable bladder distension. MUSCULOSKELETAL: Extremities without clubbing, cyanosis, or edema. No joint tenderness or effusion noted. No calf tenderness. No mottling or clubbing. LYMPHATICS: No palpable cervical or supraclavicular adenopathy. NEUROLOGICAL: Lethargic, arousable . Motor and sensory grossly within normal limits. Follows some commands. Non verbal Moves all extremities. PSYCHIATRIC: uanble to assess Laboratory Laboratory Tests Test 07/17/17 05:55 07/17/17 06:10 Blood Urea Nitrogen 16 Creatinine 0.99 Random Glucose 91 Calcium Level 8.3 Sodium Level 143 Potassium Level 3.9 Chloride Level 110 Carbon Dioxide Level 24.1 Anion Gap 9 Estimat Glomerular Filtration Rate 54 Valproic Acid (Depakene) Level 52 White Blood Count 4.3 Red Blood Count 3.77 Hemoglobin 11.8 Hematocrit 35.5 Mean Corpuscular Volume 94.3 Mean Corpuscular Hemoglobin 31.5 Mean Corpuscular Hemoglobin Concent 33.3 Red Cell Distribution Width 13.6 Platelet Count 149 Mean Platelet Volume 9.2 Date/Time Source Procedure Growth Status 07/15/17 09:55 Blood Peripheral Aerobic Blood Culture - Preliminary Gram Positive Cocci Resulted 07/15/17 09:55 Anaerobic Blood Culture - Preliminary Gram Positive Cocci Resulted 07/15/17 09:00 Urine Catheterized Urine Urine Culture - Final Escherichia Coli Complete Result Diagram: 07/17/17 0610 07/17/17 0555 Imaging Last Impressions Brain MRI 07/17/17 0000 Signed Impressions: Service Date/Time: Monday, July 17, 2017 08:38 - CONCLUSION: 1. Senescent changes with mild/moderate small vessel ischemic white matter demyelination. 2. Otherwise, unremarkable MRI examination without acute abnormality. Del Mejia MD Head CT 07/15/17 0000 Signed Impressions: Service Date/Time: Saturday, July 15, 2017 08:35 - CONCLUSION: No acute disease. Jasper Brandt MD Chest X-Ray 07/15/17 0000 Signed Impressions: Service Date/Time: Saturday, July 15, 2017 12:59 - CONCLUSION: Normal examination. Tortuous aorta Jasper Brandt MD Carotid Artery Ultrasound 07/15/17 0000 Signed Impressions: Service Date/Time: Saturday, July 15, 2017 14:16 - CONCLUSION: Left internal calcified plaque with hemodynamic profile characteristic of less than 50%% stenosis bilaterally. 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
[2017-07-18] VITALS (9 sets, daily range): BP systolic 123–157; BP diastolic 61–76; PULSE 64–89; RESP 17–20; TEMP 97.4–98.7; O2SAT 92–99
[2017-07-18] MEDS: levETIRAcetam INJ 500 MG in SODIUM CHLORIDE 0.9% INJ 100 ML IV SCH (06:42)
[2017-07-18] MEDS: CIPROFLOXACIN 400 MG PREMIX 200 ML IV SCH (06:42)
[2017-07-18] MEDS: LEVOTHYROXINE SODIUM 100 MCG TAB PO SCH (06:52)
[2017-07-18] MEDS ORDERED: SENNOSIDES 8.6 MG TAB PO PRN (07:45)
[2017-07-18] MEDS ORDERED: LACTULOSE SYRUP 20 GM/30 ML CUP PO PRN (07:45)
[2017-07-18] MEDS ORDERED: BISACODYL 10 MG SUPP RECTAL PRN (07:45)
[2017-07-18] MEDS ORDERED: MAGNESIUM HYDROXIDE SUSP 30 ML CUP PO PRN (07:45)
--- NOTE | 2017-07-18 08:27 | HHI.FPPN ---
Subjective Remarks Ms Aguilar is doing okay this morning. Her vitals were within normal limits and her nurse states that there are no issues overnight. She has no recorded bowel movement since she was admitted. Objective Vitals Vital Signs Date Time Temp Pulse Resp B/P (MAP) Pulse Ox O2 Delivery O2 Flow Rate FiO2 07/18/17 08:15 98.0 66 20 123/71 (88) 98 07/18/17 04:26 76 07/18/17 04:00 97.4 80 20 132/63 (86) 95 07/18/17 00:00 97.5 79 20 130/61 (84) 97 07/17/17 20:00 97.8 84 20 122/56 (78) 100 07/17/17 16:00 98.1 77 121/59 (79) 07/17/17 12:00 97.2 90 16 128/69 (88) 91 I/O 07/17/17 07/17/17 07/17/17 07/18/17 07/18/17 07/18/17 07:00 15:00 23:00 07:00 15:00 23:00 Intake Total 250 ml Balance 250 ml IV Total 250 ml # Voids 2 1 1 # Bowel Movements 0 Result Diagram: 07/17/17 0610 07/17/17 0555 Objective Remarks General: Lying in bed, no distress. Eyes closed. Opened eyes upon command. Mumbles often Skin: No rashes. A few senile purpura on bilateral hands and forearms. HEENT: Normocephalic, atraumatic. Mild conjunctival pallor, no nasal discharge, dentures in place. Uvula midline. No oral sores. CV: RRR, no murmur, rub or gallop. Normal pulses peripherally. Lungs: CTAB. No increased WOB. Abdomen: Soft, nontender, nondistended, normal bowel sounds. Ext: No swelling. Rigidity of upper extremities. A/P Assessment and Plan 82 year old female with a history of Alzheimer's dementia and recurrent UTIs presents from her custodial with a new onset tonic-clonic seizure and with bradycardia into the low 40's. She has Escherichia coli positive UTI and today blood cultures are positive for gram positive cocci, but no leukocytosis or fever. Will discuss with Dr. Beyer Discharge Planning Pending final urine culture and appropriate antibiotic selection and stable clinical status. Will likely return to her custodial at discharge. Problem List: (1) Bacteremia ICD Codes: R78.81 - Bacteremia Plan: Blood cx from 07/15 positive for gram positive cocci in pairs -Started Vancomycin 1gm IV q12h empirically awaiting speciation and susceptibility -ID consulted, appreciate recommendation -Pharmacy consult for assist with dosing (2) New onset seizure ICD Codes: R56.9 - Unspecified convulsions Status: Acute Plan: Tonic-clonic seizure (new onset) in the shower witnessed by the staff at [facility]; pt was incontinent of stool at that time and appeared to have a post-ictal period before returning to baseline. EEG reporting frontal sharp waves in a periodic fashion, with underlying delta theta frequencies. May be related to dementia, encephalopathy, or epileptic seizure. CT head negative. -Ativan 2mg IV PRN if seizure repeats -Seizure precautions -Neuro checks regularly -Continue Depakote sprinkles 500mg PO BID -Continue Keppra -Depakote level therapeutic at 52 on 07/17 -Brain MRI results as above -EEG on 07/17: theta rhythm frequency 6-7 Hz w/some muscle artifact present; no lateralizing features identified; no epileptiform discharges seen. INTERPRETATION Mildly abnormal study consistent with a [id number] encephalopathy. (3) Alzheimer's dementia ICD Codes: G30.9 - Alzheimer's disease, unspecified Status: Chronic Plan: Stable. - Delirium precautions - Will likely return to custodial upon discharge (4) Bradycardia ICD Codes: R00.1 - Bradycardia, unspecified Plan: Sinus bradycardia on admit, but found to be hypothyroid (TSH 7.43) on admit on levothyroxine 88mcg; have increase levothyroxine to 100mcg/day; difficult to determine whether it is symptomatic versus asymptomatic given patient's dementia. - Holding her home metoprolol with improvement in heart rate now in the range of 66-84 - Not a candidate for pacemaker -Tele - Monitor daily labs - ECHO on 07/17: LV systolic function normal w/EF: 55-60%, normal wall thickness , LV normal size, mild tricuspid valve regurg; estimated Pulm Artery pressure 35.4mmHg; mild mitral valve annular calcification (5) UTI (urinary tract infection) ICD Codes: N39.0 - Urinary tract infection, site not specified Status: Acute Plan: UA leukocyte esterase and nitrite positive with RBCs, WBCs, bacteria, mucous. No leukocytosis or fevers. - Urine cx positive for E coli - Cipro 400mg IV q12h - ID on board (6) Hypothyroidism ICD Codes: E03.9 - Hypothyroidism, unspecified Status: Acute Plan: TSH elevated to 7.430 on 07/15 -Hold home dose 88mcg levothyroxine /day after 07/15 -Start Levothyroxine 100mcg/day 07/16 (7) FEN/GI/PPx Status: Acute Plan: Fluids: PO fluids Electrolytes: Monitor, replace K+ with home dose KCl 10meq PO daily Diet: mechanical soft with thin liquids On constipation regimen DVT prophylaxis: Enoxaparin 40 mg daily Continue home Pepcid 20mg/bid ASA 81mg chew daily for stroke PPx Speech therapy: no overt signs of aspiration; mech soft diet with thin liquids and supervision/assistance with feeding -Nursing order to assist with feeding -Ensure supplement Problem Qualifiers (1) Alzheimer's dementia: (2) UTI (urinary tract infection): Karla Villaseñor MD R2 Jul 18, 2017 08:27
[2017-07-18] MEDS: DOCUSATE SODIUM 50 MG/SENNA 8.6 MG TAB PO SCH ×2 (08:48→21:12)
[2017-07-18] MEDS: ASPIRIN 81 MG CHEW TAB CHEW SCH (08:49)
[2017-07-18] MEDS: FAMOTIDINE 20 MG TAB PO SCH ×2 (08:49→21:12)
[2017-07-18] MEDS: POTASSIUM CHLORIDE 10 MEQ CAP PO SCH (08:49)
[2017-07-18] MEDS: DIVALPROEX SODIUM SPRINKLES 125 MG CAP PO SCH ×2 (08:50→21:12)
[2017-07-18 08:57] LABS: AUTOMATED NEUTROPHIL # 3.8 TH/MM3 (1.8-7.7); BASOPHIL % 0.4 % (0.0-2.0); EOSINOPHIL # 0.2 TH/MM3 (0-0.4); EOSINOPHIL % 2.8 % (0.0-4.0); HEMATOCRIT 38.1 % (35.0-46.0); HEMO FLAGS DIFF FINAL; LYMPH % 22.8 % (9.0-44.0); LYMPHOCYTE # 1.4 TH/MM3 (1.0-4.8); MEAN CELL VOLUME 96.4 FL (80.0-100.0); MEAN CORPUSCULAR HEMOGLOBIN 31.3 PG (27.0-34.0); MEAN CORPUSCULAR HGB CONC 32.5 % (32.0-36.0); MONO % 11.4 % (0.0-8.0); NEUT % 62.6 % (16.0-70.0); PLATELET COUNT 156 TH/MM3 (150-450); RED BLOOD COUNT 3.96 MIL/MM3 (4.00-5.30); RED CELL DISTRIBUTION WIDTH 13.7 % (11.6-17.2); WHITE BLOOD COUNT 6.1 TH/MM3 (4.0-11.0)
[2017-07-18 09:20] LABS: BICARBONATE 25.3 MEQ/L (21.0-32.0); POTASSIUM 4.2 MEQ/L (3.5-5.1)
[2017-07-18] MEDS ORDERED: VANCOMYCIN 1,000 MG/NS 250 ML IV SCH ×2 (10:00)
--- NOTE | 2017-07-18 13:02 | HHI.PR ---
Review/Management Diagnosis dementia Seizures--stable on current therapy. VPA level is 52 Diagnosis/Plan: (1) New onset seizure ICD Codes: R56.9 - Unspecified convulsions Status: Acute Plan: may be associated with uti/dementia abnormal eeg lethargy may be ativan last night; should clear up recs continue keppra/depakote f./u mri brain, eeg d/c planning to [place] in am (2) Alzheimer's dementia ICD Codes: G30.9 - Alzheimer's disease, unspecified Status: Chronic Plan: severe. lives in [place] (3) UTI (urinary tract infection) ICD Codes: N39.0 - Urinary tract infection, site not specified Status: Acute Plan: per medical Subjective Subjective Comments No acute events reported No headache No seizures Active Medications Current Medications Medications (Trade) Dose Ordered Sig/Beata Route Start Time Stop Time Status Last Admin (NS Flush) 2 ml UNSCH PRN IVF 07/15/17 08:00 (Aspirin Chew) 81 mg DAILY CHEW 07/16/17 09:00 07/18/17 08:49 (KCl) 10 meq DAILY PO 07/16/17 09:00 07/18/17 08:49 (Pepcid) 10 mg BID PO 07/15/17 21:00 07/18/17 08:49 (Ativan Inj) 2 mg UNSCH PRN IV PUSH 07/15/17 11:30 (Zofran Inj) 4 mg Q6H PRN IV PUSH 07/15/17 11:30 Ciprofloxacin/ Dextrose 200 ml @ 200 mls/hr Q12H IV 07/15/17 18:00 07/18/17 06:42 (Lovenox Inj) 40 mg Q24H SQ 07/15/17 18:00 07/17/17 17:21 (Synthroid) 100 mcg DAILY@0600 PO 07/16/17 06:00 07/18/17 06:52 (Depakote Sprinkles) 500 mg BID PO 07/16/17 09:00 07/18/17 08:50 Pharmacy Profile Note 0 ml @ 0 mls/hr UNSCH OTHER 07/17/17 08:45 Vancomycin HCl 1000 mg/Sodium Chloride 250 ml @ 250 mls/hr Q24H IV 07/18/17 10:00 07/18/17 08:50 Miscellaneous Information SPECIFIC LAB TO BE LAKSHMI... ONCE ONCE .XX 07/20/17 09:45 07/20/17 09:46 (Geovanna-Colace) 1 tab BID PO 07/18/17 09:00 07/18/17 08:48 (Milk Of Magnesia Liq) 30 ml Q12H PRN PO 07/18/17 07:45 07/18/17 08:59 (Senokot) 17.2 mg Q12H PRN PO 07/18/17 07:45 07/18/17 08:48 (Dulcolax Supp) 10 mg DAILY PRN RECTAL 07/18/17 07:45 (Lactulose Liq) 30 ml DAILY PRN PO 07/18/17 07:45 (Keppra) 500 mg Q12HR PO 07/18/17 21:00 Allergies Allergies Coded Allergies *MDRO Multi-Drug Resistant Organism (Verified Allergy, Unknown, 12/25/16) Review of Systems All other ROS: ROS reviewed as documented in chart Exam I&O / VS Vital Signs Date Time Temp Pulse Resp B/P (MAP) Pulse Ox O2 Delivery O2 Flow Rate FiO2 07/18/17 12:27 97.6 64 20 155/69 (97) 99 07/18/17 08:15 98.0 66 20 123/71 (88) 98 07/18/17 07:00 71 07/18/17 04:26 76 07/18/17 04:00 97.4 80 20 132/63 (86) 95 07/18/17 00:00 97.5 79 20 130/61 (84) 97 07/17/17 20:00 97.8 84 20 122/56 (78) 100 07/17/17 16:00 98.1 77 121/59 (79) General: No acute distress Eye: EOMI Respiratory: Non-labored respirations Neurologic: Alert Exam Comments more alert PERRL EOM-intact motor--generalized weakness but no focal deficits Objective Micro and Labs Laboratory Tests Test 07/18/17 08:39 White Blood Count 6.1 Red Blood Count 3.96 Hemoglobin 12.4 Hematocrit 38.1 Mean Corpuscular Volume 96.4 Mean Corpuscular Hemoglobin 31.3 Mean Corpuscular Hemoglobin Concent 32.5 Red Cell Distribution Width 13.7 Platelet Count 156 Mean Platelet Volume 9.4 Neutrophils (%) (Auto) 62.6 Lymphocytes (%) (Auto) 22.8 Monocytes (%) (Auto) 11.4 Eosinophils (%) (Auto) 2.8 Basophils (%) (Auto) 0.4 Neutrophils # (Auto) 3.8 Lymphocytes # (Auto) 1.4 Monocytes # (Auto) 0.7 Eosinophils # (Auto) 0.2 Basophils # (Auto) 0.0 CBC Comment DIFF FINAL Differential Comment Blood Urea Nitrogen 19 Creatinine 1.06 Random Glucose 72 Calcium Level 8.5 Sodium Level 144 Potassium Level 4.2 Chloride Level 111 Carbon Dioxide Level 25.3 Anion Gap 8 Estimat Glomerular Filtration Rate 50 Date/Time Source Procedure Growth Status 07/15/17 09:55 Blood Peripheral Aerobic Blood Culture - Final Corynebacterium Sp Complete 07/15/17 09:55 Anaerobic Blood Culture - Final Staph Sp Coagulase Negative Complete 07/15/17 09:00 Urine Catheterized Urine Urine Culture - Final Escherichia Coli Complete Problem Qualifiers (1) Alzheimer's dementia: (2) UTI (urinary tract infection): Angel Rothman PhD Jul 18, 2017 13:02
--- NOTE | 2017-07-18 13:21 | HHI.IDPN ---
Subjective Subjective Remarks doing OK no fever clx noted: corynobacteria, coag neg staph Antibiotics cipro vanco Allergies: Coded Allergies: *MDRO Multi-Drug Resistant Organism (Verified Allergy, Unknown, 12/25/16) ESBL K - pneumoniae urine 05/2013 Objective . Vital Signs Date Time Temp Pulse Resp B/P (MAP) Pulse Ox O2 Delivery O2 Flow Rate FiO2 07/18/17 12:27 97.6 64 20 155/69 (97) 99 07/18/17 08:15 98.0 66 20 123/71 (88) 98 07/18/17 07:00 71 07/18/17 04:26 76 07/18/17 04:00 97.4 80 20 132/63 (86) 95 07/18/17 00:00 97.5 79 20 130/61 (84) 97 07/17/17 20:00 97.8 84 20 122/56 (78) 100 07/17/17 16:00 98.1 77 121/59 (79) . Laboratory Tests Test 07/17/17 06:10 07/18/17 08:39 White Blood Count 4.3 TH/MM3 6.1 TH/MM3 Red Blood Count 3.77 MIL/MM3 3.96 MIL/MM3 Hemoglobin 11.8 GM/DL 12.4 GM/DL Hematocrit 35.5 % 38.1 % Mean Corpuscular Volume 94.3 FL 96.4 FL Mean Corpuscular Hemoglobin 31.5 PG 31.3 PG Mean Corpuscular Hemoglobin Concent 33.3 % 32.5 % Red Cell Distribution Width 13.6 % 13.7 % Platelet Count 149 TH/MM3 156 TH/MM3 Mean Platelet Volume 9.2 FL 9.4 FL Neutrophils (%) (Auto) 62.6 % Lymphocytes (%) (Auto) 22.8 % Monocytes (%) (Auto) 11.4 % Eosinophils (%) (Auto) 2.8 % Basophils (%) (Auto) 0.4 % Neutrophils # (Auto) 3.8 TH/MM3 Lymphocytes # (Auto) 1.4 TH/MM3 Monocytes # (Auto) 0.7 TH/MM3 Eosinophils # (Auto) 0.2 TH/MM3 Basophils # (Auto) 0.0 TH/MM3 CBC Comment DIFF FINAL Differential Comment Laboratory Tests Test 07/17/17 05:55 07/18/17 08:39 Blood Urea Nitrogen 16 MG/DL 19 MG/DL Creatinine 0.99 MG/DL 1.06 MG/DL Random Glucose 91 MG/DL 72 MG/DL Calcium Level 8.3 MG/DL 8.5 MG/DL Sodium Level 143 MEQ/L 144 MEQ/L Potassium Level 3.9 MEQ/L 4.2 MEQ/L Chloride Level 110 MEQ/L 111 MEQ/L Carbon Dioxide Level 24.1 MEQ/L 25.3 MEQ/L Anion Gap 9 MEQ/L 8 MEQ/L Estimat Glomerular Filtration Rate 54 ML/MIN 50 ML/MIN Imaging Last Impressions Brain MRI 07/17/17 0000 Signed Impressions: Service Date/Time: Monday, July 17, 2017 08:38 - CONCLUSION: 1. Senescent changes with mild/moderate small vessel ischemic white matter demyelination. 2. Otherwise, unremarkable MRI examination without acute abnormality. Del Mejia MD Head CT 07/15/17 0000 Signed Impressions: Service Date/Time: Saturday, July 15, 2017 08:35 - CONCLUSION: No acute disease. Jasper Brandt MD Chest X-Ray 07/15/17 0000 Signed Impressions: Service Date/Time: Saturday, July 15, 2017 12:59 - CONCLUSION: Normal examination. Tortuous aorta Jasper Brandt MD Carotid Artery Ultrasound 07/15/17 0000 Signed Impressions: Service Date/Time: Saturday, July 15, 2017 14:16 - CONCLUSION: Left internal calcified plaque with hemodynamic profile characteristic of less than 50%% stenosis bilaterally. Martin Spears MD Physical Exam CONSTITUTIONAL/GENERAL: This is an adequately nourished patient, in no apparent distress. TUBES/LINES/DRAINS: SKIN: No jaundice, rashes, or lesions. Skin temperature appropriate. Not diaphoretic. CARDIOVASCULAR: Regular rate and rhythm without murmurs, gallops, or rubs. No JVD. Peripheral pulses symmetric. RESPIRATORY/CHEST: Symmetric, unlabored respirations. Clear to auscultation. Breath sounds equal bilaterally. No wheezes, rales, or rhonchi. GASTROINTESTINAL: Abdomen soft, non-tender, nondistended. No hepato-splenomegaly , or palpable masses. No guarding. Bowel sounds present. GENITOURINARY: Without palpable bladder distension. MUSCULOSKELETAL: Extremities without clubbing, cyanosis, or edema. No joint tenderness or effusion noted. No calf tenderness. No mottling or clubbing. NEUROLOGICAL: still lethargic, arousable . Motor and sensory grossly within normal limits. Follows some commands. Non verbal Moves all extremities. PSYCHIATRIC: uanble to assess Assessment & Plan Remarks Gram positive bacteremia of no clinical significance - coagneg staph, corynobacteria UTI, E.coli Advanced dementia cont cipro, transition to po; complete 7 days dc vanco will s/o please reconsult if any questions Marly Darden MD Jul 18, 2017 13:21
[2017-07-18] MEDS: ENOXAPARIN SODIUM 40 MG/0.4 ML SYRINGE SQ SCH (16:07)
[2017-07-18] MEDS: CIPROFLOXACIN 500 MG TAB PO SCH (21:11)
[2017-07-18] MEDS: levETIRAcetam 500 MG TAB PO SCH (21:12)
--- NOTE | 2017-07-18 22:19 | HHI.FPPN ---
Addendum to progress note ADDENDUM Reason for addendum: Additonal documentation Additional information Cross Service Note Summary and Workup to date: Ms Gustafson is a pleasant 82YO female w/PMHx Alzheimer's dementia, hypothyroid, Afib and recurrent UTIs (with 2xESBL infections in 2012 and December 2016) who presents from [facility] with new onset tonic-clonic seizure activity witnessed in the shower by the staff on day of admit with incontinence of stool. CT Head was negative for acute disease. CXR was also negatve, but did show a tortuous aorta. Carotid US showed left side calcified plaque; however, <50% stenosis in each carotid artery. She is non-verbal, but can mutter a few words and at times respond to simple commands. In ED she was awake, afebrile, but bradycardic in the 40s and 50s. EKG showed bradycardia with no Afib; we held her Metoprolol and consulted Cardiology who agreed and specified no further workup. Troponins and CK-MB were not elevated, BNP mildly elevated to 184. ECHO was normal with EF 55-60%, no wall abnormality and trace tricuspid regurg. Her TSH was elevated to 7.43 on admit on levothyroxine 88mcg and we increased levothyroxine to 100mcg. This abnormality might explain the bradycardia. Neuro was consulted and Dr Rothman reviewed the EEG which shows no seizure disorder, but rather mildly abnormal study suggesting mild-moderate encephalopathy. Even though she was afebrile during her entire hospitalization, and had no leukocytosis, her urine required culture which was positive for E Coli. She was started on IV Cipro 400mg in ED and continued that course. Blood cx indicated gram positive cocci and Vancomycin IV was started at that time empirically; however, speciation did not warrant further treatment as per ID recs and Vanc was discontinued on 07/18. Neurology, ID and Cardiology have signed off. O: Vital Signs Date Time Temp Pulse Resp B/P (MAP) Pulse Ox O2 Delivery O2 Flow Rate FiO2 07/18/17 16:11 97.8 68 20 157/63 (94) 98 07/15/17 11:03 Room Air GENERAL: Well-nourished, well-developed patient, pleasant and smiling, but cannot communicate, responds to a few simple commands. SKIN: Warm and dry. Several small ecchymoses on bilateral dorsal surfaces of hands and forearms HEAD: Normocephalic. Atraumatic. MMM. EYES: No scleral icterus. No injection or drainage. NECK: Supple, trachea midline. No JVD or lymphadenopathy. CARDIOVASCULAR: Regular rate and rhythm without murmurs, gallops, or rubs. RESPIRATORY: Breath sounds equal bilaterally. No accessory muscle use. GASTROINTESTINAL: Abdomen soft, non-tender, nondistended. Normal BS. EXTREMITIES: No cyanosis, or edema. NEUROLOGICAL: Awake, alert, and oriented x 3. Non-focal. A/P: 82YO female with advanced Alzheimer's dementia, hypothyroid, Afib well controlled, and new onset seizure likely 2/2 UTI. In spite of that she has been afebrile without leukocytosis. Physical exam benign and VSS. -Per ID recs, plan to DC on 07/19 back to [facility] -Cipro 400mg PO -Continue Keppra and Depakote per neurology -Continue levothyroxine 100mcg; will need TSH checked in 2-3 months -Holding Metoprolol 50mg BID as pt was bradycardic on admit and HR has normalized without it -Continue ASA chew 81mg day -Per speech therapy, mechanical soft diet with thin liquids and requires assistance to eat -Per PT, no PT at rehab Ricardo Cope MD R1 Jul 18, 2017 22:19
[2017-07-19] VITALS (8 sets, daily range): BP systolic 131–149; BP diastolic 61–95; PULSE 65–86; RESP 16–20; TEMP 97.3–98.7; O2SAT 95–100
[2017-07-19 05:46] LABS: MEAN CELL VOLUME 95.4 FL (80.0-100.0); MEAN CORPUSCULAR HGB CONC 33.5 % (32.0-36.0); PLATELET COUNT 149 TH/MM3 (150-450); RED BLOOD COUNT 3.67 MIL/MM3 (4.00-5.30); RED CELL DISTRIBUTION WIDTH 13.9 % (11.6-17.2); REVIEW FLAG FINAL; WHITE BLOOD COUNT 4.6 TH/MM3 (4.0-11.0)
[2017-07-19 06:13] LABS: BICARBONATE 26.3 MEQ/L (21.0-32.0); POTASSIUM 3.7 MEQ/L (3.5-5.1)
[2017-07-19] MEDS: LEVOTHYROXINE SODIUM 100 MCG TAB PO SCH (06:16)
[2017-07-19] MEDS ORDERED: CIPR-9 PO (07:34)
--- NOTE | 2017-07-19 07:36 | HHI.DCPOC ---
Discharge Care Plan Diagnosis: (1) Hypothyroidism (2) UTI (urinary tract infection) (3) New onset seizure (4) Bacteremia Goals to Promote Your Health * To prevent worsening of your condition and complications * To maintain your health at the optimal level Directions to Meet Your Goals Take your medications as prescribed Follow your dietary instruction Follow activity as directed Keep your appointments as scheduled Take your immunizations and boosters as scheduled If your symptoms worsen call your PCP, if no PCP go to Urgent Care Center or Emergency Room Smoking is Dangerous to Your Health. Avoid second hand smoke Call the 24-hour hour crisis hotline for domestic abuse at Stephen Beckman MD R2 Jul 19, 2017 07:36
--- NOTE | 2017-07-19 08:38 | HHI.FPPN ---
Subjective Remarks Patient seen and examined this morning. No acute events overnight per nursing staff. Vital signs within normal limits with blood pressure up to 157/63 over the last 24 hours. Patient unable to participate in interview this morning due to lethargy. Per nursing report, patient has been more "sleepy" over the last 2 days since starting her Depakote and Keppra medications. He reports that when patient is not able to communicate due to her dementia, but is able to mumble syllables. She is unable to complete a review of systems due to her lethargy. There are no other complaints per nursing staff. (Stephen Beckman MD R2) Objective Vitals Vital Signs Date Time Temp Pulse Resp B/P (MAP) Pulse Ox O2 Delivery O2 Flow Rate FiO2 07/19/17 08:15 97.6 86 20 148/65 (92) 97 07/19/17 07:00 65 07/19/17 04:00 97.9 80 16 137/62 (87) 96 07/19/17 00:00 97.3 83 17 149/72 (97) 100 07/18/17 20:00 98.7 89 17 125/76 (92) 92 07/18/17 16:11 97.8 68 20 157/63 (94) 98 07/18/17 15:07 64 07/18/17 12:27 97.6 64 20 155/69 (97) 99 I/O 07/18/17 07/18/17 07/18/17 07/19/17 07/19/17 07/19/17 07:00 15:00 23:00 07:00 15:00 23:00 Intake Total 120 ml Balance 120 ml Intake Oral 120 ml # Voids 1 1 4 # Bowel Movements 0 1 1 (Stephen Beckman MD R2) Result Diagram: 07/19/1752407/19/17524 Objective Remarks General: Elderly female lying in bed sleeping upon entering the room and only awakens for a few seconds after sternal rub. Patient appears in no acute distress. Skin: No rashes. A few senile purpura on bilateral hands and forearms consistent with previous exams. HEENT: Normocephalic, atraumatic. MMM with no rhinorrhea. No visible LAD or JVD appreciated. CV: Regular rate and rhythm and no MGR appreciated. 2+ pulses in all 4 extremities. Lungs: Clear to auscultation anteriorly with no CRW. No increased work of breathing. Abdomen: Soft, nontender, nondistended with positive bowel sounds. No masses appreciated. Ext: No cyanosis or edema. No calf tenderness appreciated. Neuro: Neurological status and able to be evaluated due to lethargy. Patient does briefly awaken to sternal rub. (Stephen Beckman MD R2) A/P Assessment and Plan 82 year old female with a history of Alzheimer's dementia and recurrent UTIs presents from her retirement with a new onset tonic-clonic seizure and with bradycardia into the low 40's. She has Escherichia coli positive UTI and today blood cultures are positive for gram positive cocci, but no leukocytosis or fever. Will discuss with Dr. Beyer Discharge Planning Patient to be discharged to retirement. Case management contacted to arrange possible discharge. Instructions to be given to continue Ciprofloxacin for 6 more days (7 days total) per ID recommendations. Neurology recommends patient to continue with Depakote and Keppra with follow up in the next month. (Stephen Beckman MD R2) Attending Attestation Patient seen and examined. Case reviewed and discussed with the resident team. Agree with plan of care as discussed with me and documented in the resident note. She is very lethargic but did wake up enough to take her meds. (Leydi Shearer MD) Problem List: (1) UTI (urinary tract infection) ICD Codes: N39.0 - Urinary tract infection, site not specified Status: Acute Plan: UA leukocyte esterase and nitrite positive with RBCs, WBCs, bacteria, mucous. No leukocytosis or fevers. - Urine cx positive for E coli - Ciprofloxacin 400mg IV q12h (07/15-07/18) - Ciprofloxacin 500mg PO started 07/18, patient to complete 7 day oral course per ID -Repeat UA with culture if indicated ordered a discharge in 2 weeks - ID consulted, appreciate recommendations (2) Bacteremia ICD Codes: R78.81 - Bacteremia Plan: Blood cx from 07/15 positive for gram positive/coagulase negative cocci in pairs of no clinical significance -Vancomycin 1gm IV q12h (07/17-07/18) -ID consulted, appreciate recommendation (3) New onset seizure ICD Codes: R56.9 - Unspecified convulsions Status: Acute Plan: Tonic-clonic seizure (new onset) in the shower witnessed by the staff at [facility]; pt was incontinent of stool at that time and appeared to have a post-ictal period before returning to baseline. EEG reporting frontal sharp waves in a periodic fashion, with underlying delta theta frequencies. May be related to dementia, encephalopathy, or epileptic seizure. CT head negative. -Ativan 2mg IV PRN if seizure repeats -Seizure precautions -Neuro checks regularly -Continue Depakote 500mg PO BID -Continue Keppra -Depakote level therapeutic at 52 on 07/17 -Brain MRI results as above -EEG on 07/17: theta rhythm frequency 6-7 Hz w/some muscle artifact present; no lateralizing features identified; no epileptiform discharges seen. INTERPRETATION Mildly abnormal study consistent with a [id number] encephalopathy. -Neurology consulted and signed off, patient to continue Depakote and Keppra with follow up in 1 month (4) Alzheimer's dementia ICD Codes: G30.9 - Alzheimer's disease, unspecified Status: Chronic Plan: Stable. - Delirium precautions - Will return to retirement upon discharge (5) Bradycardia ICD Codes: R00.1 - Bradycardia, unspecified Plan: Sinus bradycardia on admit, but found to be hypothyroid (TSH 7.43) on admit on levothyroxine 88mcg; have increase levothyroxine to 100mcg/day; difficult to determine whether it is symptomatic versus asymptomatic given patient's dementia. - Holding her home metoprolol with improvement in heart rate now in the range of 66-84 - Not a candidate for pacemaker -Tele - Monitor daily labs - ECHO on 07/17: LV systolic function normal w/EF: 55-60%, normal wall thickness , LV normal size, mild tricuspid valve regurg; estimated Pulm Artery pressure 35.4mmHg; mild mitral valve annular calcification (6) Hypothyroidism ICD Codes: E03.9 - Hypothyroidism, unspecified Status: Acute Plan: TSH elevated to 7.430 on 07/15 -Continue Levothyroxine 100mcg/day -Repeat TSH in 4 weeks after discharge (7) FEN/GI/PPx Status: Acute Plan: Fluids: PO fluids Electrolytes: Monitor, replace K+ with home dose KCl 10meq PO daily Diet: mechanical soft with thin liquids On constipation regimen DVT prophylaxis: Enoxaparin 40 mg daily Continue home Pepcid 20mg/bid ASA 81mg chew daily for stroke PPx Speech therapy: no overt signs of aspiration; mech soft diet with thin liquids and supervision/assistance with feeding -Nursing order to assist with feeding -Ensure supplement (Stephen Beckman MD R2) Problem Qualifiers (1) UTI (urinary tract infection): (2) Alzheimer's dementia: Stephen Beckman MD R2 Jul 19, 2017 08:38 Leydi Shearer MD Jul 19, 2017 17:09
[2017-07-19] MEDS ORDERED: LEVE500 PO (08:41)
[2017-07-19] MEDS ORDERED: DIVA125C PO (08:41)
[2017-07-19] MEDS ORDERED: LEVO.1 PO (08:42)
[2017-07-19] MEDS: FAMOTIDINE 20 MG TAB PO SCH ×3 (09:00→22:20)
[2017-07-19] MEDS: DOCUSATE SODIUM 50 MG/SENNA 8.6 MG TAB PO SCH ×3 (09:00→22:20)
[2017-07-19] MEDS: CIPROFLOXACIN 500 MG TAB PO SCH ×3 (09:00→22:19)
[2017-07-19] MEDS: DIVALPROEX SODIUM SPRINKLES 125 MG CAP PO SCH ×3 (09:00→22:19)
[2017-07-19] MEDS: levETIRAcetam 500 MG TAB PO SCH ×3 (09:00→22:20)
[2017-07-19] MEDS: ASPIRIN 81 MG CHEW TAB CHEW SCH (09:09)
[2017-07-19] MEDS: POTASSIUM CHLORIDE 10 MEQ CAP PO SCH (09:10)
[2017-07-19] MEDS: ENOXAPARIN SODIUM 40 MG/0.4 ML SYRINGE SQ SCH (16:31)
[2017-07-20 00:10] VITALS: BP 133/60; PULSE 84; RESP 16; TEMP 98.8; O2SAT 98
[2017-07-20] MEDS: LEVOTHYROXINE SODIUM 100 MCG TAB PO SCH (06:04)
--- NOTE | 2017-07-20 07:52 | HHI.PR ---
Review/Management Diagnosis/Plan: (1) New onset seizure ICD Codes: R56.9 - Unspecified convulsions Status: Acute Plan: may be associated with uti/dementia abnormal eeg recs continue keppra/depakote d/c planning to [place] today from neuro outpatient f/u with us as needed (2) Alzheimer's dementia ICD Codes: G30.9 - Alzheimer's disease, unspecified Status: Chronic Plan: severe. lives in [place] (3) UTI (urinary tract infection) ICD Codes: N39.0 - Urinary tract infection, site not specified Status: Acute Plan: per medical Subjective Subjective Comments No acute events reported Active Medications Current Medications Medications (Trade) Dose Ordered Sig/Beata Route Start Time Stop Time Status Last Admin (NS Flush) 2 ml UNSCH PRN IVF 07/15/17 08:00 (Aspirin Chew) 81 mg DAILY CHEW 07/16/17 09:00 07/19/17 09:09 (KCl) 10 meq DAILY PO 07/16/17 09:00 07/19/17 09:10 (Pepcid) 10 mg BID PO 07/15/17 21:00 07/19/17 22:20 (Ativan Inj) 2 mg UNSCH PRN IV PUSH 07/15/17 11:30 (Zofran Inj) 4 mg Q6H PRN IV PUSH 07/15/17 11:30 (Lovenox Inj) 40 mg Q24H SQ 07/15/17 18:00 07/19/17 16:31 (Synthroid) 100 mcg DAILY@0600 PO 07/16/17 06:00 07/20/17 06:04 (Depakote Sprinkles) 500 mg BID PO 07/16/17 09:00 07/19/17 22:19 (Geovanna-Colace) 1 tab BID PO 07/18/17 09:00 07/19/17 22:20 (Milk Of Magnesia Liq) 30 ml Q12H PRN PO 07/18/17 07:45 07/18/17 08:59 (Senokot) 17.2 mg Q12H PRN PO 07/18/17 07:45 07/18/17 08:48 (Dulcolax Supp) 10 mg DAILY PRN RECTAL 07/18/17 07:45 (Lactulose Liq) 30 ml DAILY PRN PO 07/18/17 07:45 (Keppra) 500 mg Q12HR PO 07/18/17 21:00 07/19/17 22:20 (Cipro) 500 mg Q12HR PO 07/18/17 21:00 07/19/17 22:19 Allergies Allergies Coded Allergies *MDRO Multi-Drug Resistant Organism (Verified Allergy, Unknown, 12/25/16) Review of Systems All other ROS: ROS reviewed as documented in chart Exam I&O / VS Vital Signs Date Time Temp Pulse Resp B/P (MAP) Pulse Ox O2 Delivery O2 Flow Rate FiO2 07/20/17 00:10 98.8 84 16 133/60 (84) 98 07/19/17 20:22 98.7 86 17 131/61 (84) 98 07/19/17 16:29 97.9 76 20 146/95 (112) 95 07/19/17 15:21 71 07/19/17 12:04 97.6 71 20 145/63 (90) 97 07/19/17 08:15 97.6 86 20 148/65 (92) 97 General: No acute distress Eye: EOMI Respiratory: Non-labored respirations Neurologic: Alert Exam Comments drowsy but arousable, states "what?" not sustaining attention, eomi, face sym, ou 3-2mm, +paratonia in ue, withdraws in all 4 ext Objective Micro and Labs Date/Time Source Procedure Growth Status 07/15/17 09:55 Blood Peripheral Aerobic Blood Culture - Final Corynebacterium Sp Complete 07/15/17 09:55 Anaerobic Blood Culture - Final Staph Sp Coagulase Negative Complete 07/15/17 09:00 Urine Catheterized Urine Urine Culture - Final Escherichia Coli Complete Problem Qualifiers (1) Alzheimer's dementia: (2) UTI (urinary tract infection): Mark Kay MD Jul 20, 2017 07:52
[2017-07-20 08:02] VITALS: BP 137/64; PULSE 74; RESP 20; TEMP 97.5; O2SAT 97
[2017-07-20] MEDS: DOCUSATE SODIUM 50 MG/SENNA 8.6 MG TAB PO SCH (09:07)
[2017-07-20] MEDS: DIVALPROEX SODIUM SPRINKLES 125 MG CAP PO SCH (09:07)
[2017-07-20] MEDS: FAMOTIDINE 20 MG TAB PO SCH (09:07)
[2017-07-20] MEDS: ASPIRIN 81 MG CHEW TAB CHEW SCH (09:07)
[2017-07-20] MEDS: CIPROFLOXACIN 500 MG TAB PO SCH (09:07)
[2017-07-20] MEDS: POTASSIUM CHLORIDE 10 MEQ CAP PO SCH (09:07)
[2017-07-20] MEDS: levETIRAcetam 500 MG TAB PO SCH (09:07)
[2017-07-20] MEDS ORDERED: PHARMACY ORDERED LAB ONE (09:45)
[2017-07-20 10:32] VITALS: PULSE 70
[2017-07-20 12:38] VITALS: BP 133/65; PULSE 73; RESP 20; TEMP 95.9; O2SAT 98
--- NOTE | 2017-07-20 14:50 | HHI.FPPN ---
Subjective Remarks History limited secondary to mental state. No events overnight per nursing staff. Vital signs within normal limits. More alert today than yesterday. Review of systems Limited secondary to mental state. (Angel Rivera MD, R3) Objective Vitals Vital Signs Date Time Temp Pulse Resp B/P (MAP) Pulse Ox O2 Delivery O2 Flow Rate FiO2 07/20/17 12:38 95.9 73 20 133/65 (87) 98 07/20/17 10:32 70 07/20/17 08:02 97.5 74 20 137/64 (88) 97 07/20/17 00:10 98.8 84 16 133/60 (84) 98 07/19/17 20:22 98.7 86 17 131/61 (84) 98 07/19/17 16:29 97.9 76 20 146/95 (112) 95 07/19/17 15:21 71 I/O 07/19/17 07/19/17 07/19/17 07/20/17 07/20/17 07/20/17 07:00 15:00 23:00 07:00 15:00 23:00 Intake Total 120 ml 0 ml Balance 120 ml 0 ml Intake Oral 120 ml 0 ml # Voids 4 # Bowel Movements 1 1 (Angel Rivera MD, R3) Result Diagram: 07/19/1752407/19/17524 Objective Remarks General: Elderly female lying in bed comfortable. Appears sleepy, although more alert than yesterday. Skin: No rashes. A few senile purpura on bilateral hands and forearms consistent with previous exams. HEENT: Normocephalic, atraumatic. MMM with no rhinorrhea. No visible LAD or JVD appreciated. CV: Regular rate and rhythm and no MGR appreciated. 2+ pulses in all 4 extremities. Lungs: Clear to auscultation anteriorly with no CRW. No increased work of breathing. Abdomen: Soft, nontender, nondistended with positive bowel sounds. No masses appreciated. Ext: No cyanosis or edema. No calf tenderness appreciated. Neuro: Awake. Somewhat Alert. Not oriented. (Angel Rivera MD, R3) A/P Assessment and Plan 82 year old female with a history of Alzheimer's dementia and recurrent UTIs presents from her custodial with a new onset tonic-clonic seizure and with bradycardia into the low 40's. She has Escherichia coli positive UTI. ID on board. Okay for discharge today to senior care facility. Discharge Planning Patient to be discharged to custodial. Case management contacted to arrange possible discharge. Instructions to be given to continue Ciprofloxacin for 6 more days (7 days total) per ID recommendations. Neurology recommends patient to continue with Depakote and Keppra with follow up in the next month. (Angel Rivera MD, R3) Attending Attestation Patient seen and examined. Case reviewed and discussed with the resident team. Agree with plan of care as discussed with me and documented in the resident note. yesterday she did not wake up to take her meds or eat. today she is still bedridden but did take her meds and was more alert overall. unsure of her baseline. she may be staying up at night here in the hospital and improve at her SNF. She will follow up with Neuro (Leydi Shearer MD) Problem List: (1) UTI (urinary tract infection) ICD Codes: N39.0 - Urinary tract infection, site not specified Status: Acute Plan: UA leukocyte esterase and nitrite positive with RBCs, WBCs, bacteria, mucous. No leukocytosis or fevers. - Urine cx positive for E coli - Ciprofloxacin 400mg IV q12h (07/15-07/18) - Ciprofloxacin 500mg PO started 07/18, patient to complete 7 day oral course per ID -Repeat UA with culture if indicated ordered a discharge in 2 weeks - ID consulted, appreciate recommendations (2) Bacteremia ICD Codes: R78.81 - Bacteremia Plan: Blood cx from 07/15 positive for gram positive/coagulase negative cocci in pairs of no clinical significance -Vancomycin 1gm IV q12h (07/17-07/18) -ID consulted, appreciate recommendation (3) New onset seizure ICD Codes: R56.9 - Unspecified convulsions Status: Acute Plan: Tonic-clonic seizure (new onset) in the shower witnessed by the staff at [facility]; pt was incontinent of stool at that time and appeared to have a post-ictal period before returning to baseline. EEG reporting frontal sharp waves in a periodic fashion, with underlying delta theta frequencies. May be related to dementia, encephalopathy, or epileptic seizure. CT head negative. -Ativan 2mg IV PRN if seizure repeats -Seizure precautions -Neuro checks regularly -Continue Depakote 500mg PO BID -Continue Keppra -Depakote level therapeutic at 52 on 07/17 -Brain MRI results as above -EEG on 07/17: theta rhythm frequency 6-7 Hz w/some muscle artifact present; no lateralizing features identified; no epileptiform discharges seen. INTERPRETATION Mildly abnormal study consistent with a [id number] encephalopathy. -Neurology consulted and signed off, patient to continue Depakote and Keppra with follow up in 1 month (4) Alzheimer's dementia ICD Codes: G30.9 - Alzheimer's disease, unspecified Status: Chronic Plan: Stable. - Delirium precautions - Will return to custodial upon discharge (5) Bradycardia ICD Codes: R00.1 - Bradycardia, unspecified Plan: Sinus bradycardia on admit, but found to be hypothyroid (TSH 7.43) on admit on levothyroxine 88mcg; have increase levothyroxine to 100mcg/day; difficult to determine whether it is symptomatic versus asymptomatic given patient's dementia. - Holding her home metoprolol with improvement in heart rate now in the range of 66-84 - Not a candidate for pacemaker -Tele - Monitor daily labs - ECHO on 07/17: LV systolic function normal w/EF: 55-60%, normal wall thickness , LV normal size, mild tricuspid valve regurg; estimated Pulm Artery pressure 35.4mmHg; mild mitral valve annular calcification (6) Hypothyroidism ICD Codes: E03.9 - Hypothyroidism, unspecified Status: Acute Plan: TSH elevated to 7.430 on 07/15 -Continue Levothyroxine 100mcg/day -Repeat TSH in 4 weeks after discharge (7) FEN/GI/PPx Status: Acute Plan: Fluids: PO fluids Electrolytes: Monitor, replace K+ with home dose KCl 10meq PO daily Diet: mechanical soft with thin liquids On constipation regimen DVT prophylaxis: Enoxaparin 40 mg daily Continue home Pepcid 20mg/bid ASA 81mg chew daily for stroke PPx Speech therapy: no overt signs of aspiration[facility] liquids and supervision/assistance with feeding -Nursing order to assist with feeding -Ensure supplement (Angel Rivera MD, R3) Problem Qualifiers (1) UTI (urinary tract infection): (2) Alzheimer's dementia: Angel Rivera MD, R3 Jul 20, 2017 14:50 Leydi Shearer MD Jul 21, 2017 14:31
--- NOTE | 2017-07-20 14:58 | HHI.DS ---
Discharge Summary Admission Date Jul 15, 2017 at 10:01 Discharge Date: Jul 20, 2017 Admitting Diagnosis new onset seizure/UTI (1) UTI (urinary tract infection) Diagnosis: Principal Plan: UA leukocyte esterase and nitrite positive with RBCs, WBCs, bacteria, mucous. No leukocytosis or fevers. - Urine cx positive for E coli - Ciprofloxacin 400mg IV q12h (07/15-07/18) - Ciprofloxacin 500mg PO started 07/18, patient to complete 7 day oral course per ID -Repeat UA with culture if indicated ordered a discharge in 2 weeks - ID consulted, appreciate recommendations ICD Codes: N39.0 - Urinary tract infection, site not specified Status: Acute (2) Bacteremia Diagnosis: Secondary Plan: Blood cx from 07/15 positive for gram positive/coagulase negative cocci in pairs of no clinical significance -Vancomycin 1gm IV q12h (07/17-07/18) -ID consulted, appreciate recommendation ICD Codes: R78.81 - Bacteremia (3) New onset seizure Diagnosis: Principal Plan: Tonic-clonic seizure (new onset) in the shower witnessed by the staff at [facility]; pt was incontinent of stool at that time and appeared to have a post-ictal period before returning to baseline. EEG reporting frontal sharp waves in a periodic fashion, with underlying delta theta frequencies. May be related to dementia, encephalopathy, or epileptic seizure. CT head negative. -Ativan 2mg IV PRN if seizure repeats -Seizure precautions -Neuro checks regularly -Continue Depakote 500mg PO BID -Continue Keppra -Depakote level therapeutic at 52 on 07/17 -Brain MRI results as above -EEG on 07/17: theta rhythm frequency 6-7 Hz w/some muscle artifact present; no lateralizing features identified; no epileptiform discharges seen. INTERPRETATION Mildly abnormal study consistent with a [id number] encephalopathy. -Neurology consulted and signed off, patient to continue Depakote and Keppra with follow up in 1 month ICD Codes: R56.9 - Unspecified convulsions Status: Acute (4) Alzheimer's dementia Diagnosis: Secondary Plan: Stable. - Delirium precautions - Will return to shelter upon discharge ICD Codes: G30.9 - Alzheimer's disease, unspecified Status: Chronic (5) Bradycardia Diagnosis: Secondary Plan: Sinus bradycardia on admit, but found to be hypothyroid (TSH 7.43) on admit on levothyroxine 88mcg; have increase levothyroxine to 100mcg/day; difficult to determine whether it is symptomatic versus asymptomatic given patient's dementia. - Holding her home metoprolol with improvement in heart rate now in the range of 66-84 - Not a candidate for pacemaker -Tele - Monitor daily labs - ECHO on 07/17: LV systolic function normal w/EF: 55-60%, normal wall thickness , LV normal size, mild tricuspid valve regurg; estimated Pulm Artery pressure 35.4mmHg; mild mitral valve annular calcification ICD Codes: R00.1 - Bradycardia, unspecified (6) Hypothyroidism Diagnosis: Secondary Plan: TSH elevated to 7.430 on 07/15 -Continue Levothyroxine 100mcg/day -Repeat TSH in 4 weeks after discharge ICD Codes: E03.9 - Hypothyroidism, unspecified Status: Acute (7) FEN/GI/PPx Diagnosis: Secondary Plan: Fluids: PO fluids Electrolytes: Monitor, replace K+ with home dose KCl 10meq PO daily Diet: mechanical soft with thin liquids On constipation regimen DVT prophylaxis: Enoxaparin 40 mg daily Continue home Pepcid 20mg/bid ASA 81mg chew daily for stroke PPx Speech therapy: no overt signs of aspiration; mech soft diet with thin liquids and supervision/assistance with feeding -Nursing order to assist with feeding -Ensure supplement Status: Acute Consultants Infectious disease Neurology Cardiology PT- recommends PT at SNF Brief History Ms Gustafson is an 82YO female w/PMHx of Alzheimer's dementia, Afib, anxiety, and recurrent UTIs who has been a resident in [facility] [phone] and had a tonic-clonic seizure witnessed by the staff in the shower this morning. The staff helped her to the floor so there was no fall at the time and EMS was called. She was incontinent of stool at that time and had a post-ictal period before returning to normal baseline which is non-verbal. Dr Juarez is her PCP in the shelter. Her is in her [facility] with [facility], [facility] and reports his has had alzheimer's dementia for 4 years or more. She has no other reported medical history. She was last hospitalized at [place] for gallstones approximately 1 year ago. In the ED she is bradycardic on the monitor and on ECG in the 40s and 50s. There are no other symptoms reported. CBC/BMP: 07/19/17 0525 07/19/17 0525 Significant Findings Laboratory Tests Test 07/18/17 08:39 07/19/17 05:25 07/20/17 11:30 Red Blood Count 3.96 MIL/MM3 (4.00-5.30) 3.67 MIL/MM3 (4.00-5.30) Monocytes (%) (Auto) 11.4 % (0.0-8.0) Blood Urea Nitrogen 19 MG/DL (7-18) Creatinine 1.06 MG/DL (0.50-1.00) Random Glucose 72 MG/DL (74-106) Chloride Level 111 MEQ/L (98-107) 109 MEQ/L (98-107) Estimat Glomerular Filtration Rate 50 ML/MIN (>89) 63 ML/MIN (>89) Platelet Count 149 TH/MM3 (150-450) Imaging MRI- mild/moderate small vessel ischemic white matter demyelination. Otherwise unremarkable. Carotid ultrasound- left ICA with less than 50% stenosis Chest x-ray- within normal limits Head CT-no acute disease PE at Discharge General: Elderly female lying in bed comfortable. Appears sleepy, although more alert than yesterday. Skin: No rashes. A few senile purpura on bilateral hands and forearms consistent with previous exams. HEENT: Normocephalic, atraumatic. MMM with no rhinorrhea. No visible LAD or JVD appreciated. CV: Regular rate and rhythm and no MGR appreciated. 2+ pulses in all 4 extremities. Lungs: Clear to auscultation anteriorly with no CRW. No increased work of breathing. Abdomen: Soft, nontender, nondistended with positive bowel sounds. No masses appreciated. Ext: No cyanosis or edema. No calf tenderness appreciated. Neuro: Awake. Somewhat Alert. Not oriented. Hospital Course Patient was admitted for new onset seizures and urinary infection. Urine culture grew out Escherichia coli. Infectious disease consulted. Patient was placed on ciprofloxacin to complete 7 total days of oral antibiotics. Neurology was consulted for new onset tonic-clonic seizures.EEG reporting frontal sharp waves in a periodic fashion, with underlying delta theta frequencies. May be related to dementia, encephalopathy, or epileptic seizure. CT head negative. Neurology signed off on the patient wanting her to continue Depakote and Keppra. He will follow up with the patient in one month. Cardiology was consulted for bradycardia.ECHO on 07/17: LV systolic function normal w/EF: 55-60%, normal wall thickness, LV normal size, mild tricuspid valve regurg; estimated Pulm Artery pressure 35.4mmHg; mild mitral valve annular calcification. She is not a candidate for pacemaker. On discharge, the patient was seen by neurology and determined to be okay for discharge. ID recommended 7 total days of by mouth ciprofloxacin. Pt Condition on Discharge: Fair Discharge Disposition: Discharge to SNF Discharge Instructions DIET: Follow Instructions for: As Tolerated, No Restrictions Speech Therapy-Diet Recommends: Mechanical Soft Activities you can perform: See Additionl Instruction Other Activity Instructions: Per PT recommendations Follow up Referrals: Neurology - 4 Weeks PCP Follow-up New Orders: TSH 3RD GEN - 1 Month UA C+S IF INDICATED - 2 Weeks New Medications: Ciprofloxacin (Cipro) 500 Mg Tab 500 MG PO Q12HR, #12 TAB Divalproex Sprinkles (Depakote Sprinkles) 125 mg Cap 500 MG PO BID, #60 CAP 1 Refill Levetiracetam (Keppra) 500 Mg Tab 500 MG PO Q12HR, #60 TAB 1 Refill Levothyroxine (Synthroid) 100 Mcg Tab 100 MCG PO DAILY@0600, #30 TAB 1 Refill Continued Medications: Aspirin (Aspirin) 81 Mg Chew 81 MG CHEW DAILY, TAB 0 Refills Calcium Carbonate-Cholecalciferol (Calcium 600 with Vitamin D) 600-400 mg-Unit Tab 1 TAB PO DAILY for Calcium Supplement, TAB 0 Refills Dextromethorphan HBr-Quinidine (Nuedexta 20-10 mg) 20 Mg-10 Mg 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, #60 CAP 0 Refills Hydroxyzine HCl (Hydroxyzine HCl) 25 Mg Tab 25 MG PO QID, TAB 0 Refills Magnesium Hydroxide Liq (Milk of Magnesia Liq) 400 Mg/5 Ml Susp 30 ML PO DAILY PRN for INDIGESTION OR UPSET STOMACH, #1 BOTTLE 0 Refills Melatonin (Melatonin) 3 Mg Tab 1 TAB PO HS Metoprolol Tartrate (Lopressor) 50 Mg Tab 50 MG PO BID, #30 TAB 0 Refills Multiple Vitamin (Multi Vitamin Daily) 1 Tab Tab Potassium Chloride ER (Potassium Chloride ER) 10 Meq Cap 10 MEQ PO DAILY for Electrolyte Replacement, #30 CAP 0 Refills Ranitidine (Ranitidine) 150 Mg Tab 150 MG PO DAILY for Heartburn Management, #30 TAB 0 Refills Wheat Dextrin (Benefiber) 3 Gram/3.8 Gram Powder 1 PACKET PO DAILY Discontinued Medications: Levothyroxine (Synthroid) 88 Mcg Tab 88 MCG PO DAILY for Thyroid, #30 TAB 0 Refills Angel Rivera MD, R3 Jul 20, 2017 14:58
[2017-07-20 16:00] VITALS: BP 127/59; PULSE 72; RESP 20; TEMP 97.8; O2SAT 99
== END 2017-07-20 17:00 | DRG 100 ==
LOC: NEPC 07:44 → NEDA 10:01 → N05A 11:21
PROVIDERS: ADMIT Family Medicine; ATTEND Family Medicine
DX: G40.89 Other seizures (principal); G93.40 Encephalopathy, unspecified; N17.9 Acute kidney failure, unspecified; R78.81 Bacteremia; N39.0 Urinary tract infection, site not specified; R00.1 Bradycardia, unspecified; G30.9 Alzheimer's disease, unspecified; F02.80 Dementia in other diseases classified elsewhere, unspecified severity, without behavioral disturbance, psychotic disturbance, mood disturbance, and anxiety; E03.9 Hypothyroidism, unspecified; B96.20 Unspecified Escherichia coli [E. coli] as the cause of diseases classified elsewhere; B96.89 Other specified bacterial agents as the cause of diseases classified elsewhere; F41.9 Anxiety disorder, unspecified; B95.7 Other staphylococcus as the cause of diseases classified elsewhere; Z87.440 Personal history of urinary (tract) infections; Z23 Encounter for immunization
CPT/HCPCS: 70450; 70551; 71010; 76937; 80048; 80053; 80164; 80307; 81001; 82550; 83605; 83735; 83880; 84100; 84443; 84484; 85025; 85027; 85610; 85730; 87040; 87077; 87086; 87186; 87205; 90732; 93005; 93306; 93880; 95819; 96374; J0744; J1650; J1953; J2543; J3370; J7030; J7050; Q2009

== ENCOUNTER 2017-07-22 07:31 | Inpatient (IN) | payer MEDICARE, MEDICAID ==
[~2017-07-22] VITALS: Ht 170.2 cm; Wt 82.5 kg
[2017-07-22] VITALS (21 sets, daily range): BP systolic 98–174; BP diastolic 52–75; PULSE 53–80; RESP 12–23; TEMP 97.8–99.1; O2SAT 95–100
[~2017-07-22 07:31] MED LIST changes: -BENEPOW8 PO; +CIPR-9 PO; -COLA100C3 PO; +DIVA125C PO; -DONE10TA7 PO; -GLUC1CAP14 PO; +HYDR-3133 PO; +LEVE500 PO; +LEVO.1 PO; -LORA-392 PO; -MACR100C2 PO; -MELA1TAB22 PO; +MELA3TAB PO; +MULT1TAB46; -MULT1TAB84 PO; -NAME10TA PO; -NU-IRON PO; +NUED20CA PO; -OXYB5TAB8 PO; -SIMV40TA PO; -SYNT88TA PO; +WHEA1POW9 PO; -ZOLO50TA PO
--- NOTE | 2017-07-22 07:36 | PD ---
HPI Chief Complaint: altered mental status Time Seen by Provider: 07:36 Travel History International Travel<30 days: No Contact w/Intl Traveler<30days: No Traveled to known affect area: No History of Present Illness HPI 82-year-old female was brought in as an altered mental status found in the alf at 11 PM last night. As per the paramedics report they received from the alf patient was given a shot of Depakote last night and since then she was noticed to be altered mental status. He waited till the morning to see if the mental status improved and once it did not be called 911. Patient was stable hemodynamically. GCS was 8. Patient obviously was unable to give any meaningful history. She has history of Alzheimer's dementia. Patient was recently discharged from this hospital for new onset seizures. She was started on Depakote. [facility] Past Medical History Narrative Medical List of her past medical, surgical, social and family history is reviewed from the nursing note. Alzheimer's Disease: Yes Anemia: Yes Anxiety: Yes Depression: No Cancer: No Cardiovascular Problems: No High Cholesterol: Yes ( ) Coronary Artery Disease: Yes Dementia: Yes Diabetes: No Endocrine: Yes Gastrointestinal Disorders: Yes (GERD) GERD: Yes Genitourinary: Yes (BLADDER FISTULA) Hepatitis: No Hiatal Hernia: No Hypertension: Yes Immune Disorder: No Musculoskeletal: No Neurologic: Yes (ALZHEIMER'S DISEASE) Psychiatric: Yes Reproductive: No Respiratory: No Renal Failure: Yes (stage 3 renal disease) Thyroid Disease: Yes Menopausal: Yes Past Surgical History Abdominal Surgery: Yes Body Medical Devices: NONE Cardiac Surgery: No Ear Surgery: No Endocrine Surgery: No Eye Surgery: Yes (Cataracts removed ) Genitourinary Surgery: Yes Gynecologic Surgery: No Oral Surgery: No Pacemaker: No Thoracic Surgery: No Other Surgery: Yes (BLADDER LIFT MANY YEARS AGO) Social History Alcohol Use: No Tobacco Use: No Substance Use: No Allergies-Medications (Allergen,Severity, Reaction): Coded Allergies: *MDRO Multi-Drug Resistant Organism (Verified Allergy, Unknown, 07/22/17) ESBL K - pneumoniae urine 05/2013 No Known Drug Allergies (Verified Allergy, Unknown, 07/22/17) Comments List of allergies reviewed from the nursing note. Reported Meds & Prescriptions Reported Meds & Active Scripts Active Synthroid (Levothyroxine Sodium) 100 Mcg Tab 100 Mcg PO DAILY@0600 Depakote Sprinkles (Divalproex Sodium) 125 mg Cap 500 Mg PO BID Keppra (Levetiracetam) 500 Mg Tab 500 Mg PO Q12HR Cipro (Ciprofloxacin HCl) 500 Mg Tab 500 Mg PO Q12HR Reported Florastor (Saccharomyces Boulardii) 250 Mg Cap 250 Mg PO BID Hydroxyzine HCl 25 Mg Tab 25 Mg PO QID PRN Nuedexta 20-10 mg (Dextromethorphan HBr-Quinidine) 20 Mg-10 Mg Cap 1 Cap PO BID Multi Vitamin Daily (Multiple Vitamin) 1 Tab Tab Benefiber (Wheat Dextrin) 3 Gram/3.8 Gram Powder 1 Packet PO DAILY Melatonin 3 Mg Tab 1 Tab PO HS Calcium 600 with Vitamin D (Calcium Carbonate-Cholecalciferol) 600-400 mg-Unit Tab 1 Tab PO DAILY Ranitidine (Ranitidine HCl) 150 Mg Tab 150 Mg PO DAILY Lopressor (Metoprolol Tartrate) 50 Mg Tab 50 Mg PO BID Milk of Magnesia Liq (Magnesium Hydroxide) 400 Mg/5 Ml Susp 30 Ml PO DAILY PRN Aspirin 81 Mg Chew 81 Mg CHEW DAILY Potassium Chloride ER (Potassium Chloride) 10 Meq Cap 10 Meq PO DAILY Narrative Medication List of her home medications reviewed from the nursing note. Review of Systems ROS Limitations: Altered Mental Status, Unresponsive Except as stated in HPI: all other systems reviewed are Neg Physical Exam Exam Limitations: Poor Historian Narrative GENERAL: Unresponsive, SKIN: Focused skin assessment warm/dry. Multiple old bruising on the chest and left hip HEAD: Atraumatic. Normocephalic. EYES: Pupils equal and round. No scleral icterus. No injection or drainage. ENT: No nasal bleeding or discharge. Mucous membranes pink and moist. NECK: Trachea midline. No JVD. CARDIOVASCULAR: Regular rate and rhythm. No murmur appreciated. RESPIRATORY: No accessory muscle use. Clear to auscultation. Breath sounds equal bilaterally. GASTROINTESTINAL: Abdomen soft, non-tender, nondistended. Hepatic and splenic margins not palpable. MUSCULOSKELETAL: No obvious deformities. No clubbing. No cyanosis. No edema. NEUROLOGICAL: GCS of 8 PSYCHIATRIC: Unable to assess Data Data Last Documented VS Orders Orders Electrocardiogram (07/22/17 07:45) Ammonia (07/22/17 07:45) Complete Blood Count With Diff (07/22/17 07:45) Comprehensive Metabolic Panel (07/22/17 07:45) Creatine Kinase (Cpk) (07/22/17 07:45) Prothrombin Time / Inr (Pt) (07/22/17 07:45) Troponin I (07/22/17 07:45) Thyroid Stimulating Hormone (07/22/17 07:45) Urinalysis - C+S If Indicated (07/22/17 07:45) Lactic Acid Sepsis Protocol (07/22/17 07:45) Blood Culture (07/22/17 07:45) Chest, Single Ap (07/22/17 07:45) Ct Brain W/O Iv Contrast(Rout) (07/22/17 07:45) Blood Glucose (07/22/17 07:45) Ecg Monitoring (07/22/17 07:45) Iv Access Insert/Monitor (07/22/17 07:45) Oximetry (07/22/17 07:45) Sodium Chloride 0.9% Flush (Ns Flush) (07/22/17 07:45) Sodium Chlor 0.9% 1000 Ml Inj (Ns 1000 M (07/22/17 07:45) Valproic Acid (Depakene) (07/22/17 07:45) Etomidate Inj (Amidate Inj) (07/22/17 09:17) Succinylcholine Inj (Quelicin Inj) (07/22/17 09:45) Etomidate Inj (Amidate Inj) (07/22/17 09:45) Chest, Single Ap (07/22/17 ) ^ Orogastric Tube (07/22/17 09:44) Urinary Catheter Insert/Apply (07/22/17 09:44) Propofol 1000 Mg/100 Ml Inj (Diprivan 10 (07/22/17 09:45) ^ Infusion (07/22/17 09:44) RASS (07/22/17 09:44) Neurological Rass Scale ERROL.Q2H (07/22/17 09:44) Arterial Blood Gas (Abg) (07/22/17 10:15) Admit Order (Ed Use Only) (07/22/17 10:41) Labs Laboratory Tests Test 07/22/17 08:06 07/22/17 08:16 07/22/17 08:43 07/22/17 10:15 White Blood Count 5.9 TH/MM3 Red Blood Count 3.87 MIL/MM3 Hemoglobin 12.5 GM/DL Hematocrit 37.3 % Mean Corpuscular Volume 96.2 FL Mean Corpuscular Hemoglobin 32.2 PG Mean Corpuscular Hemoglobin Concent 33.5 % Red Cell Distribution Width 13.9 % Platelet Count 207 TH/MM3 Mean Platelet Volume 9.1 FL Neutrophils (%) (Auto) 65.9 % Lymphocytes (%) (Auto) 18.8 % Monocytes (%) (Auto) 11.0 % Eosinophils (%) (Auto) 3.7 % Basophils (%) (Auto) 0.6 % Neutrophils # (Auto) 3.9 TH/MM3 Lymphocytes # (Auto) 1.1 TH/MM3 Monocytes # (Auto) 0.6 TH/MM3 Eosinophils # (Auto) 0.2 TH/MM3 Basophils # (Auto) 0.0 TH/MM3 CBC Comment DIFF FINAL Differential Comment Prothrombin Time 10.7 SEC Prothromb Time International Ratio 1.0 RATIO Blood Urea Nitrogen 24 MG/DL Creatinine 1.05 MG/DL Random Glucose 87 MG/DL Total Protein 6.3 GM/DL Albumin 2.5 GM/DL Calcium Level 8.8 MG/DL Alkaline Phosphatase 107 U/L Aspartate Amino Transf (AST/SGOT) 45 U/L Alanine Aminotransferase (ALT/SGPT) 24 U/L Total Bilirubin 0.2 MG/DL Sodium Level 145 MEQ/L Potassium Level 4.3 MEQ/L Chloride Level 112 MEQ/L Carbon Dioxide Level 27.6 MEQ/L Anion Gap 5 MEQ/L Estimat Glomerular Filtration Rate 50 ML/MIN Total Creatine Kinase 86 U/L Troponin I LESS THAN 0.02 NG/ML Thyroid Stimulating Hormone 3rd Gen 3.630 uIU/ML Valproic Acid (Depakene) Level 67 MCG/ML Lactic Acid Level 0.9 mmol/L Ammonia 21 MCMOL/L Urine Color YELLOW Urine Turbidity CLEAR Urine pH 5.5 Urine Specific Weir 1.026 Urine Protein TRACE mg/dL Urine Glucose (UA) NEG mg/dL Urine Ketones 10 mg/dL Urine Occult Blood TRACE Urine Nitrite NEG Urine Bilirubin NEG Urine Urobilinogen LESS THAN 2.0 MG/DL Urine Leukocyte Esterase NEG Urine RBC 1 /hpf Urine WBC 1 /hpf Urine Squamous Epithelial Cells <1 /hpf Urine Mucus FEW /lpf Microscopic Urinalysis Comment CATH-CULT NOT IND Blood Gas Puncture Site LT RADIAL Blood Gas Patient Temperature 37.0 Blood Gas HCO3 24 mmol/L Blood Gas Base Excess 0.3 mmol/L Blood Gas Oxygen Saturation 98 % Arterial Blood pH 7.44 Arterial Blood Partial Pressure CO2 36 mmHg Arterial Blood Partial Pressure O2 251 mmHG Arterial Blood Oxygen Content 16.8 Vol % Arterial Blood Carboxyhemoglobin 0.9 % Arterial Blood Methemoglobin 0.6 % Blood Gas Hemoglobin 11.8 G/DL Oxygen Delivery Device VENTILATOR Blood Gas Ventilator Setting AC/16/500/+5 Blood Gas Inspired Oxygen 50 % [facility] Medical Decision Making Medical Screen Exam Complete: Yes Emergency Medical Condition: Yes Medical Record Reviewed: Yes Interpretation(s) Twelve-lead EKG was reviewed by me. Normal sinus rhythm, left axis deviation, nonspecific ST-T wave changes. Heart rate of 63 bpm. Differential Diagnosis Intracranial bleed, metabolic encephalopathy, sepsis, dehydration Narrative Course 11:35 AM blood test results of back and within acceptable limits. Patient does not have a UTI or pneumonia. CT scan was negative. However patient was having hard time maintaining her own respirations and started to go into periods of apnea. Given this patient was intubated by me to protect the airway. I spoke with her prior to the procedure and he agreed. Please refer to my procedure note. At this point patient has been admitted to the [facility]. She continues to be hemodynamically stable. Critical Care Narrative Aggregate critical care time was 60 minutes. Time to perform other separately billable procedures was not included in the critical care time. My time did not include minutes spent treating any other patients simultaneously or on activities that did not directly contribute to the patient's treatment. The services I provided to this patient were to treat and/or prevent clinically significant deterioration that could result in: Altered mental status, respiratory failure I provided critical care services requiring my management, as noted below: Chart data review, documentation time, medication orders and management, vital sign assessments/reviewing monitor data, ordering and reviewing lab tests, ordering and interpreting/reviewing x-rays and diagnostic studies, care of the patient and discussion of the patient with the admitting physicians. Procedures Procedure Narrative After the risks and benefits were discussed the following procedure was performed: INTUBATION: The patient was put in optimal position for the procedure. Rapid sequence intubation was initiated by me using 20 milligrams of etomidate IV and 100 milligrams of etomidate IV. The patient was intubated with a 7.5 cuffed endotracheal tube. Tube placement was confirmed by visualization of the tube and balloon passing through the cords, capnometry and subsequent chest x-ray. Breath sounds were equal and well aerated bilaterally postintubation. No breath sounds over stomach. Patient tolerated procedure well. EKG Prior to Arrival: Yes Physician Communication Physician Communication Dr. Gilliam Diagnosis Primary Impression: Unresponsive Additional Impressions: Respiratory failure Qualified Codes: J96.00 - Acute respiratory failure, unspecified whether with hypoxia or hypercapnia Metabolic encephalopathy Admitting Information Admitting Physician Requests: Admit Osvaldo Goss MD Jul 22, 2017 07:36
[2017-07-22] MEDS ORDERED: SODIUM CHLOR 0.9% 1000 ML INJ 1,000 ML IV SCH (07:45)
[2017-07-22] MEDS ORDERED: SODIUM CHLORIDE 0.9% FLUSH 5 ML FLUSH IV FLUSH PRN (07:45)
[2017-07-22] MEDS ORDERED: FLOR250C PO (07:57)
[2017-07-22 08:25] LABS: AUTOMATED NEUTROPHIL # 3.9 TH/MM3 (1.8-7.7); BASOPHIL % 0.6 % (0.0-2.0); EOSINOPHIL # 0.2 TH/MM3 (0-0.4); EOSINOPHIL % 3.7 % (0.0-4.0); HEMATOCRIT 37.3 % (35.0-46.0); HEMO FLAGS DIFF FINAL; LYMPH % 18.8 % (9.0-44.0); LYMPHOCYTE # 1.1 TH/MM3 (1.0-4.8); MEAN CELL VOLUME 96.2 FL (80.0-100.0); MEAN CORPUSCULAR HEMOGLOBIN 32.2 PG (27.0-34.0); MEAN CORPUSCULAR HGB CONC 33.5 % (32.0-36.0); NEUT % 65.9 % (16.0-70.0); PLATELET COUNT 207 TH/MM3 (150-450); RED BLOOD COUNT 3.87 MIL/MM3 (4.00-5.30); RED CELL DISTRIBUTION WIDTH 13.9 % (11.6-17.2); WHITE BLOOD COUNT 5.9 TH/MM3 (4.0-11.0)
[2017-07-22 08:31] LABS: PROTHROMBIN TIME - PATIENT 10.7 SEC (9.8-11.6)
--- NOTE | 2017-07-22 08:40 | RADRPT ---
EXAM DATE/TIME: 07/22/2017 08:15 [facility] COMPARISON: CHEST SINGLE AP, July 15, 2017, 12:59. INDICATIONS : Unresponsive, syncope. MEDICAL HISTORY : None. SURGICAL HISTORY : None. ENCOUNTER: Initial ACUITY: 1 day PAIN SCORE: Non-responsive. LOCATION: Bilateral chest FINDINGS: A single view of the chest demonstrates the lungs to be symmetrically aerated without evidence of mas s, infiltrate or effusion. The cardiomediastinal contours are unremarkable. Osseous structures are intact. CONCLUSION: No acute disease. Martin Olivarez Jr., MD on July 22, 2017 at 8:36 Board Certified Radiologist. This report was verified electronically.
--- NOTE | 2017-07-22 08:46 | RADRPT ---
EXAM DATE/TIME: 07/22/2017 08:26 [facility] COMPARISON: CT BRAIN W/O CONTRAST, July 15, 2017, 8:35. INDICATIONS : Altered mental status. RADIATION DOSE: 49.18 CTDIvol (mGy) MEDICAL HISTORY : Cardiovascular disease. Hypertension. SURGICAL HISTORY : None. ENCOUNTER: Initial ACUITY: 1 day PAIN SCALE: Non-responsive LOCATION: cranial TECHNIQUE: Multiple contiguous axial images were obtained of the head. Using automated exposure control and adj ustment of the mA and/or kV according to patient size, radiation dose was kept as low as reasonably a chievable to obtain optimal diagnostic quality images. DICOM format image data is available electro nically for review and comparison. FINDINGS: CEREBRUM: Atrophy. The ventricles are normal for age. No evidence of midline shift, mass lesion, hemorrhage or acute infarction. No extra-axial fluid collections are seen. POSTERIOR FOSSA: The cerebellum and brainstem are intact. The 4th ventricle is midline. The cerebellopontine angle i s unremarkable. EXTRACRANIAL: The visualized portion of the orbits is intact. SKULL: The calvaria is intact. No evidence of skull fracture. CONCLUSION: 1. Atrophy. 2. No acute intracranial abnormality. Martin Olivarez Jr., MD on July 22, 2017 at 8:43 Board Certified Radiologist. This report was verified electronically.
[2017-07-22 08:49] LABS: ALT (GPT) 24 U/L (10-53); ANION GAP 5 MEQ/L (5-15); AST (GOT) 45 U/L (15-37); BICARBONATE 27.6 MEQ/L (21.0-32.0); BLOOD UREA NITROGEN 24 MG/DL (7-18); CHLORIDE 112 MEQ/L (98-107); GLOMERULAR FILTRATION RATE 50 ML/MIN (>89); POTASSIUM 4.3 MEQ/L (3.5-5.1); SODIUM (NA) 145 MEQ/L (136-145)
[2017-07-22 08:57] LABS: ALKALINE PHOSPHATASE 107 U/L (45-117); TOTAL BILIRUBIN ADULT 0.2 MG/DL (0.2-1.0)
[2017-07-22 09:01] LABS: CREATINE KINASE 86 U/L (26-192)
[2017-07-22 09:04] LABS: BLOOD, URINE TRACE (NEG); GLUCOSE,URINE NEG (NEG); KETONE, URINE 10 mg/dL (NEG); MUCUS URINE FEW /lpf (OCC); NITRITE,URINE NEG (NEG); PH, URINE 5.5 (5.0-8.5); SQUAMOUS EPITHELIAL CELL URINE <1 /hpf (0-5); URINE COLOR YELLOW (YELLW/STRAW)
[2017-07-22 09:05] LABS: COMMENT (UR) CATH-CULT NOT IND; CULTURE IF INDICATED CATH CULTURE NOT IND
[2017-07-22] MEDS ORDERED: ETOMIDATE 20 MG/10 ML VIAL ONE (09:17)
--- NOTE | 2017-07-22 09:35 | EKG ---
Date Performed: 07/22/2017 Time Performed: 07:48:06 PTAGE: 82 years EKG: Sinus rhythm BORDERLINE LEFT AXIS DEVIATION POSSIBLE RIGHT VENTRICULAR CONDUCTION DELAY BORDERLINE ECG No signifi cant change from prior electrocardiogram. DOCTOR: Oskar Duncan Interpretating Date/Time 07/22/2017 09:33:56
[2017-07-22] MEDS ORDERED: SUCCINYLCHOLINE CHLORIDE 100 MG/5 ML SYRINGE IV PUSH ONE (09:45)
[2017-07-22] MEDS ORDERED: ETOMIDATE 20 MG/10 ML VIAL IV PUSH ONE (09:45)
[2017-07-22] MEDS: PROPOFOL 1000 MG/100 ML INJ 100 ML IV PRN ×2 (09:59→14:11)
--- NOTE | 2017-07-22 10:12 | RADRPT ---
EXAM DATE/TIME: 07/22/2017 09:56 [facility] COMPARISON: CHEST SINGLE AP, July 22, 2017, 8:15. INDICATIONS : Post procedure. Intubation. MEDICAL HISTORY : Alzheimers. SURGICAL HISTORY : Discectomy, lumbar. Cholecystectomy ENCOUNTER: Initial ACUITY: 1 day PAIN SCORE: Non-responsive. LOCATION: Bilateral chest FINDINGS: ET tube in good position. Nasogastric tube across the GE junction. Lungs are clear. The cardiomedi astinal contours are unremarkable. Osseous structures are intact. CONCLUSION: ET tube in good position. Rush Pierce MD FACR on July 22, 2017 at 10:10 Board Certified Radiologist. This report was verified electronically.
[2017-07-22 10:25] LABS: BLOOD GAS BASE EXCESS 0.3 mmol/L (-2-2); BLOOD GAS CARBOXYHEMOGLOBIN 0.9 % (0-4); BLOOD GAS HCO3 24 mmol/L (22-26); BLOOD GAS METHEMOGLOBIN 0.6 % (0-2); BLOOD GAS O2 HGB SATURATION 98 % (90-100); BLOOD GAS OXYGEN CONTENT 16.8 Vol % (12.0-20.0); BLOOD GAS PCO2 36 mmHg (38-42); BLOOD GAS PO2 251 mmHG (61-120); BLOOD GAS TOTAL HGB 11.8 G/DL (12.0-16.0); CRITICAL VALUE NO; DRAW SITE LT RADIAL; FIO2 50 %; NUMBER OF ARTERIAL PUNCTURES 1; OXYGEN DEVICE VENTILATOR; STAT YES; ULNAR PULSE PRESENT; VENT SETTINGS AC/16/500/+5
[2017-07-22] MEDS ORDERED: CHLORHEXIDINE GLUCONATE 2 % 1 PACK (2 CLOTHS) TOP PRN (11:45)
[2017-07-22] MEDS ORDERED: RESP: ALBUTEROL 2.5 MG/IPRATROPIUM 0.5 MG NEB (PRN) INH (11:45)
[2017-07-22] MEDS ORDERED: PROPOFOL 1000 MG/100 ML INJ 100 ML IV PRN (11:45)
[2017-07-22] MEDS ORDERED: SODIUM CHLORIDE 0.9% FLUSH 10 ML FLUSH IV FLUSH PRN (11:45)
[2017-07-22] MEDS ORDERED: MISCELLANEOUS NURSING INFORMATION XX SCH (11:45)
--- NOTE | 2017-07-22 12:08 | HHI.HP ---
HPI Service Critical Care Medicine Primary Care Physician Jose Juarez MD (Paul) Admission Diagnosis unresponsive, respiratory failure Diagnosis: Chief Complaint: Altered mental status Travel History International Travel<30 Days: No Contact w/Intl Traveler <30 Da: No Traveled to Known Affected Are: No History of Present Illness HPI 82-year-old female with a medical history significant for advanced Alzheimer's dementia who was been in long term for 4 years was recently discharged after being admitted with altered mental status seizures and UTI. She was initiated on Keppra and Depakote after being evaluated by Dr. Kay at that time. She was also started on ciprofloxacin and was evaluated by ID for a UTI. Since her discharge patient developed worsening neurologic status yesterday with question of obtundation. There was a question of her receiving Depakote injection last night following which her neurologic status continued to worsen hence she was brought to the ER by [facility]. Patient was not protecting her airway per ER physician with some gurgling sounds on arrival hence was intubated for airway protection and placed on mechanical ventilation. Head CT done in the ER was negative for any intracranial hemorrhage. Valproate levels were in the upper end of the therapeutic range. Patient was sedated with propofol following intubation. She was accepted for admission by critical care medicine service. When I evaluated the patient she was sedated with propofol, orally intubated on mechanical ventilation. History was obtained by reviewing records and discussion with Dr. Goss as family was not available at the time of my evaluation. History PFSH Past Medical History Narrative Medical Alzheimer's Disease: Yes Anemia: Yes Anxiety: Yes Depression: No Cancer: No Cardiovascular Problems: No High Cholesterol: Yes ( ) Coronary Artery Disease: Yes Dementia: Yes Diabetes: No Endocrine: Yes Gastrointestinal Disorders: Yes (GERD) GERD: Yes Genitourinary: Yes (BLADDER FISTULA) Hepatitis: No Hiatal Hernia: No Hypertension: Yes Immune Disorder: No Musculoskeletal: No Neurologic: Yes (ALZHEIMER'S DISEASE) Psychiatric: Yes Reproductive: No Respiratory: No Renal Failure: Yes (stage 3 renal disease) Thyroid Disease: Yes Menopausal: Yes Past Surgical History Abdominal Surgery: Yes Body Medical Devices: NONE Cardiac Surgery: No Ear Surgery: No Endocrine Surgery: No Eye Surgery: Yes (Cataracts removed ) Genitourinary Surgery: Yes Gynecologic Surgery: No Oral Surgery: No Pacemaker: No Thoracic Surgery: No Other Surgery: Yes (BLADDER LIFT MANY YEARS AGO) Social History Alcohol Use: No Tobacco Use: No Substance Use: No Allergies-Medications Allergies-Medications (Allergen,Severity, Reaction): Coded Allergies: *MDRO Multi-Drug Resistant Organism (Verified Allergy, Unknown, 07/22/17) ESBL K - pneumoniae urine 05/2013 No Known Drug Allergies (Verified Allergy, Unknown, 07/22/17) Comments List of allergies reviewed from the nursing note. Reported Meds & Prescriptions Reported Meds & Active Scripts Active Synthroid (Levothyroxine Sodium) 100 Mcg Tab 100 Mcg PO DAILY@0600 Depakote Sprinkles (Divalproex Sodium) 125 mg Cap 500 Mg PO BID Keppra (Levetiracetam) 500 Mg Tab 500 Mg PO Q12HR Cipro (Ciprofloxacin HCl) 500 Mg Tab 500 Mg PO Q12HR Reported Florastor (Saccharomyces Boulardii) 250 Mg Cap 250 Mg PO BID Hydroxyzine HCl 25 Mg Tab 25 Mg PO QID PRN Nuedexta 20-10 mg (Dextromethorphan HBr-Quinidine) 20 Mg-10 Mg Cap 1 Cap PO BID Multi Vitamin Daily (Multiple Vitamin) 1 Tab Tab Benefiber (Wheat Dextrin) 3 Gram/3.8 Gram Powder 1 Packet PO DAILY Melatonin 3 Mg Tab 1 Tab PO HS Calcium 600 with Vitamin D (Calcium Carbonate-Cholecalciferol) 600-400 mg-Unit Tab 1 Tab PO DAILY Ranitidine (Ranitidine HCl) 150 Mg Tab 150 Mg PO DAILY Lopressor (Metoprolol Tartrate) 50 Mg Tab 50 Mg PO BID Milk of Magnesia Liq (Magnesium Hydroxide) 400 Mg/5 Ml Susp 30 Ml PO DAILY PRN Aspirin 81 Mg Chew 81 Mg CHEW DAILY Potassium Chloride ER (Potassium Chloride) 10 Meq Cap 10 Meq PO DAILY Narrative Medication List of her home medications reviewed from the nursing note. ROS Review of Systems Unable to be obtained as patient is sedated, orally intubated on mechanical ventilation Physical Exam Vital Signs Vital Signs Date Time Temp Pulse Resp B/P (MAP) Pulse Ox O2 Delivery O2 Flow Rate FiO2 07/22/17 10:15 68 17 174/72 (106) 100 Ventilator 07/22/17 10:00 80 23 172/71 (104) 100 Ventilator 50 07/22/17 09:45 74 14 133/62 (85) 100 Ventilator 50 07/22/17 09:43 100 50 07/22/17 07:57 95 Room Air 07/22/17 07:44 99.1 65 14 144/65 (91) 95 Room Air Physical Exam HEENT/ Neuro: Sedated, orally intubated, Pallor present, no icterus, tongue/ mucosa moist. (On arrival in the ER GCS 8 prior to intubation.) Neck: No JVD Chest/Pulm: on mech vent, good air entry bilaterally, no wheezing or crackles CVS: S1-S2 regular, no murmur GI/abdomen: soft, nontender, bowel sounds sluggish Extremities: warm bilaterally, no edema Laboratory Laboratory Tests Test 07/22/17 08:06 07/22/17 08:16 07/22/17 08:43 07/22/17 10:15 White Blood Count 5.9 Red Blood Count 3.87 Hemoglobin 12.5 Hematocrit 37.3 Mean Corpuscular Volume 96.2 Mean Corpuscular Hemoglobin 32.2 Mean Corpuscular Hemoglobin Concent 33.5 Red Cell Distribution Width 13.9 Platelet Count 207 Mean Platelet Volume 9.1 Neutrophils (%) (Auto) 65.9 Lymphocytes (%) (Auto) 18.8 Monocytes (%) (Auto) 11.0 Eosinophils (%) (Auto) 3.7 Basophils (%) (Auto) 0.6 Neutrophils # (Auto) 3.9 Lymphocytes # (Auto) 1.1 Monocytes # (Auto) 0.6 Eosinophils # (Auto) 0.2 Basophils # (Auto) 0.0 CBC Comment DIFF FINAL Differential Comment Prothrombin Time 10.7 Prothromb Time International Ratio 1.0 Blood Urea Nitrogen 24 Creatinine 1.05 Random Glucose 87 Total Protein 6.3 Albumin 2.5 Calcium Level 8.8 Alkaline Phosphatase 107 Aspartate Amino Transf (AST/SGOT) 45 Alanine Aminotransferase (ALT/SGPT) 24 Total Bilirubin 0.2 Sodium Level 145 Potassium Level 4.3 Chloride Level 112 Carbon Dioxide Level 27.6 Anion Gap 5 Estimat Glomerular Filtration Rate 50 Total Creatine Kinase 86 Troponin I LESS THAN 0.02 Thyroid Stimulating Hormone 3rd Gen 3.630 Valproic Acid (Depakene) Level 67 Lactic Acid Level 0.9 Ammonia 21 Urine Color YELLOW Urine Turbidity CLEAR Urine pH 5.5 Urine Specific [place] 1.026 Urine Protein TRACE Urine Glucose (UA) NEG Urine Ketones 10 Urine Occult Blood TRACE Urine Nitrite NEG Urine Bilirubin NEG Urine Urobilinogen LESS THAN 2.0 Urine Leukocyte Esterase NEG Urine RBC 1 Urine WBC 1 Urine Squamous Epithelial Cells <1 Urine Mucus FEW Microscopic Urinalysis Comment CATH-CULT NOT IND Blood Gas Puncture Site LT RADIAL Blood Gas Patient Temperature 37.0 Blood Gas HCO3 24 Blood Gas Base Excess 0.3 Blood Gas Oxygen Saturation 98 Arterial Blood pH 7.44 Arterial Blood Partial Pressure CO2 36 Arterial Blood Partial Pressure O2 251 Arterial Blood Oxygen Content 16.8 Arterial Blood Carboxyhemoglobin 0.9 Arterial Blood Methemoglobin 0.6 Blood Gas Hemoglobin 11.8 Oxygen Delivery Device VENTILATOR Blood Gas Ventilator Setting AC/16/500/+5 Blood Gas Inspired Oxygen 50 Date/Time Source Procedure Growth Status 07/22/17 08:11 Blood Peripheral Aerobic Blood Culture Pending Received 07/22/17 08:11 Blood Peripheral Anaerobic Blood Culture Pending Received Result Diagram: 07/22/17 0806 07/22/17805 Imaging Last Impressions Head CT 07/22/17744 Signed Impressions: Service Date/Time: Saturday, July 22, 2017 08:26 - CONCLUSION: 1. Atrophy. 2. No acute intracranial abnormality. Martin Olivarez Jr., MD Chest X-Ray 07/22/17744 Signed Impressions: Service Date/Time: Saturday, July 22, 2017 08:15 - CONCLUSION: No acute disease. Martin Olivarez Jr., MD Caphosseini VTE Risk Assessment Caprini VTE Risk Assessment: Mod/High Risk (score >= 2) Caprini Risk Assessment Model Point Value = 1 Point Value = 2 Point Value = 3 Point Value = 5 Age 41-60 Minor surgery BMI > 25 kg/m2 Swollen legs Varicose veins or History of unexplained or recurrent spontaneous Oral contraceptives or hormone replacement Sepsis (< 1 month) Serious lung disease, including pneumonia (< 1 month) Abnormal pulmonary function Acute myocardial infarction Congestive heart failure (< 1 month) History of inflammatory bowel disease Medical patient at bed rest Age 61-74 Arthroscopic surgery Major open surgery (> 45 min) Laparoscopic surgery (> 45 min) Malignancy Confined to bed (> 72 hours) Immobilizing plaster cast Central venous access Age >= 75 History of VTE Family history of VTE Factor V Leiden Prothrombin [id number] Lupus anticoagulant Anticardiolipin antibodies Elevated serum homocysteine Heparin-induced thrombocytopenia Other congenital or acquired thrombophilia Stroke (< 1 month) Elective arthroplasty Hip, pelvis, or leg fracture Acute spinal cord injury (< 1 month) Prophylaxis Regimen Total Risk Factor Score Risk Level Prophylaxis Regimen 0-1 Low Early ambulation 2 Moderate Order ONE of the following: *Sequential Compression Device (SCD) *Heparin 5000 units SQ BID 3-4 Higher Order ONE of the following medications: *Heparin 5000 units SQ TID *Enoxaparin/Lovenox 40 mg SQ daily (WT < 150 kg, CrCl > 30 mL/min) *Enoxaparin/Lovenox 30 mg SQ daily (WT < 150 kg, CrCl > 10-29 mL/min) *Enoxaparin/Lovenox 30 mg SQ BID (WT < 150 kg, CrCl > 30 mL/min) AND/OR *Sequential Compression Device (SCD) 5 or more Highest Order ONE of the following medications: *Heparin 5000 units SQ TID (Preferred with Epidurals) *Enoxaparin/Lovenox 40 mg SQ daily (WT < 150 kg, CrCl > 30 mL/min) *Enoxaparin/Lovenox 30 mg SQ daily (WT < 150 kg, CrCl > 10-29 mL/min) *Enoxaparin/Lovenox 30 mg SQ BID (WT < 150 kg, CrCl > 30 mL/min) AND *Sequential Compression Device (SCD) Assessment and Plan Assessment and Plan 82-year-old female with: Worsening encephalopathy Recent seizure Advanced as I'm his dementia Recent UTI Acute respiratory failure on mechanical ventilation Plan: Neuro: Sedation with propofol. Follow neuro checks per ICU protocol. Daily sedation vacation. Continue IV Keppra. We'll defer valproate continuation to neurology as patient's family feels that's what made her worse, her level is to the higher end of therapeutic range currently. Dr. Kay from neurology consulted. Stat EEG ordered. Cardiovascular: IV hydration, watch for hypotension. Continue antihypertensives Pulmonary: Continue mechanical ventilation, vent bundle, bronchodilators as needed. We will initiate daily C Pap trials and await improvement in neurologic status prior to considering extubation. GI/liver: Start tube feeds and advanced to goal as tolerated. Renal/: IV hydration, strict intake output, monitor and replete electrolites, follow BUN creatinine. ID: Continue ciprofloxacin 500 mg via OG tube twice a day for 3 more days to complete therapy for recent UTI per ID recommendation. Check sputum for Gram stain and culture. Endocrine: SSI for glycemic control as needed. Heme: Follow CBC Prophylaxis: Pepcid/ SCDs, Heparin subcutaneously Consult palliative care to assist with deciding goals of therapy in view of her advanced Alzheimer's disease. Condition critical. Time spent on critical care excluding procedures 60 minutes Javi Gilliam MD Jul 22, 2017 12:08
[2017-07-22] MEDS ORDERED: hydrOXYzine HCL 25 MG TAB PO PRN (12:15)
[2017-07-22] MEDS ORDERED: MAGNESIUM HYDROXIDE SUSP 30 ML CUP PO PRN (12:15)
[2017-07-22] MEDS: LEVOTHYROXINE SODIUM 100 MCG TAB PO SCH (13:30)
[2017-07-22] MEDS: SODIUM CHLOR 0.9% 1000 ML INJ 1,000 ML IV SCH (13:41)
--- NOTE | 2017-07-22 14:22 | PD.CONS ---
Consult Service Palliative Care Consult Requested By Dr. Gilliam . Primary Care Physician Jose Juarez MD (Paul) Reason for Consultation a. To assist with evaluation and management of symptoms including: Altered mental status b. To assist medical decision maker(s) with: better understanding of current medical conditions; weighing benefits/burdens of medical treatment options; making medical treatment decisions. HPI History of Present Illness This 82-year-old patient presented to the ED 07/22/17, for altered mental status. Per EMS report from nursing facility he received injection of Depakote last evening and since then was noted to have altered mental status. They waited until morning to see if mental status improved and when it did not the activated EMS. Hemodynamically patient stable. Was unable to provide other history. She also is reported to have known history of Alzheimer dementia. Had recently been discharged from acute hospitalization for new onset seizures and was started on Depakote. * ED course: EKG= normal sinus rhythm. non Specific ST-T wave changes. Rate in the 60s. CBC unremarkable. BUN 24/creatine 1.07. Glucose 87. UA negative. Troponin negative. CT brain negative for acute process. CXR negative for acute process. During ED course patient with difficulty maintaining respiratory rate. +apnea noted. ED physician discussed with patient and who agreed to proceed with aggressive interventions, patient was intubated protect airway. Patient remained hemodynamically stable. Plan for admission to ICU for further evaluation and management. * Neurology consult, EEG pending. Patient on IV Keppra. Cultures pending. Palliative care was consulted to assist with clarification of goals of treatment. Patient seen in the ED room no visitors present. Nursing indicates left , not known when he will return. Patient breathing comfortably on mechanical vent, sedation Diprivan 40 mics/kilogram/minute. She is minimally responsive to my exam. Following exam call to patient at both numbers listed, voicemail with my contact information left. Call back from patient set up to meet with him around 5 PM today Of note palliative consulted on and evaluated this patient 05/12/16: At that time patient hospitalized due to lethargy, pain, UTI. During that hospitalization she developed atrial fib RVR. She was not a candidate for anticoagulation or further diagnostics due to advanced dementia. Functional and cognitive status at that time patient had been reported to be diagnosed with Alzheimer's disease 6 years prior. Prior to that hospitalization she required assistance with all ADLs and had communication difficulties however she could still ambulate. During palliative evaluation she was pleasantly confused and minimally verbal answering yes or I don't know. Her oral intake was noted to be poor. At that time patient was discharged to SNF for rehabilitation with the hoping that she would get strong enough to return home, but he was also considering transition to comfort focus if she failed rehabilitation attempts. Wt per I/O 90kg. --Patient had ER visit here 09/17/16 for fall; discharge back to nursing facility without any acute injury requiring treatment --Patient had ER visit here 12/25/16 for UTI, discharge back to nursing facility with antibiotic for UTI --Patient recently hospitalized 07/15/17 - 07/20/17 for new onset seizure, UTI: Neurology evaluated new-onset seizure felt may be associated with UTI or dementia abnormal EEG started her on Keppra as well as one-time dose of Cerebyx. CT brain negative. During that admission she was also treated for Escherichia coli UTI, gram-positive blood cultures. Patient with poor oral intake speech therapy evaluated with no signs of aspiration patient tolerating mechanical soft diet within liquids with assistance. During that admission charting indicates she would eat 0-20-40-50 percent of meals. Weight pe I/O recorded at 75 kg [ 15 kg/33# weight loss in about 14 months] Function/Cognitive Trajectory Her most recent admission patient reported to be primarily bed to wheelchair. Limited mumbled speech. + advanced Alzheimer's disease, diagnosed approximately 7 years ago. [facility] resident ([facility]) since April 2016 .prior to April 2016 hospitalization reported to live at home with , required assistance for all ADLs, had communication difficulties with limited verbalization of a few words. She was still ambulatory with assist. Weight recorded at 75 kg, admission weight 2016 =90 kg [ 15 kg/33# weight loss in about 14 months]. indicates that her weight has essentially been stable that he is aware of. . Review of Systems ROS Limitations: Intubated, Altered Mental Status, Other (history of Alzheimer' s minimally verbal, poor historian) Past Family Social History Coded Allergies: *MDRO Multi-Drug Resistant Organism (Verified Allergy, Unknown, 07/22/17) ESBL K - pneumoniae urine 05/2013 No Known Drug Allergies (Verified Allergy, Unknown, 07/22/17) Past Medical History GERD CAD Hypercholesterolemia Alzheimer's disease Bladder fistula Stage III kidney disease Hypothyroid Hypertension Hiatal hernia Esophagitis Diverticulosis Arthrosclerosis of the aorta Arthritis Tardive dyskinesia Lumbar radiculopathy Past Surgical History Bladder lift Cataract removal Reported Medications Synthroid (Levothyroxine Sodium) 100 Mcg Tab 100 Mcg PO DAILY@0600 Depakote Sprinkles (Divalproex Sodium) 125 mg Cap 500 Mg PO BID Keppra (Levetiracetam) 500 Mg Tab 500 Mg PO Q12HR Cipro (Ciprofloxacin HCl) 500 Mg Tab 500 Mg PO Q12HR Florastor (Saccharomyces Boulardii) 250 Mg Cap 250 Mg PO BID Hydroxyzine HCl 25 Mg Tab 25 Mg PO QID PRN Nuedexta 20-10 mg (Dextromethorphan HBr-Quinidine) 20 Mg-10 Mg Cap 1 Cap PO BID Multi Vitamin Daily (Multiple Vitamin) 1 Tab Tab Benefiber (Wheat Dextrin) 3 Gram/3.8 Gram Powder 1 Packet PO DAILY Melatonin 3 Mg Tab 1 Tab PO HS Calcium 600 with Vitamin D (Calcium Carbonate-Cholecalciferol) 600-400 mg-Unit Tab 1 Tab PO DAILY Ranitidine (Ranitidine HCl) 150 Mg Tab 150 Mg PO DAILY Lopressor (Metoprolol Tartrate) 50 Mg Tab 50 Mg PO BID Milk of Magnesia Liq (Magnesium Hydroxide) 400 Mg/5 Ml Susp 30 Ml PO DAILY PRN Aspirin 81 Mg Chew 81 Mg CHEW DAILY Potassium Chloride ER (Potassium Chloride) 10 Meq Cap 10 Meq PO DAILY . Current Medications Medications (Trade) Dose Ordered Sig/Beata Route Start Time Stop Time Status Last Admin (NS Flush) 2 ml UNSCH PRN IV FLUSH 07/22/17 07:45 Propofol 100 ml @ 2.7 mls/hr TITRATE PRN IV 07/22/17 09:45 07/22/17 09:59 Sodium Chloride 1,000 ml @ 75 mls/hr [id number] IV 07/22/17 11:34 UNV (NS Flush) 2 ml UNSCH PRN IV FLUSH 07/22/17 11:45 UNV (NS Flush) 2 ml BID IV FLUSH 07/22/17 21:00 UNV (Tylenol) 650 mg Q6H PRN PO 07/22/17 11:45 UNV (Duoneb Neb) 1 ampule Q6HR NEB NEB 07/22/17 16:00 UNV (Duoneb Neb) 1 ampule Q4HR NEB PRN INH 07/22/17 11:45 UNV (Peridex 0.12% Liq) 15 ml BID@08,20 MT 07/22/17 20:00 UNV (Pepcid) 20 mg BID TUBE 07/22/17 21:00 UNV (Heparin Inj) 5,000 units Q12H SQ 07/22/17 11:45 UNV Miscellaneous Information 1 Q361D XX 07/22/17 11:45 UNV (Chlorhexidine 2% Cloth) 3 pack Taper DAILY@04 TOP 07/23/17 04:00 07/19/18 03:59 UNV (Chlorhexidine 2% Cloth) 3 pack UNSCH PRN TOP 07/22/17 11:45 UNV Propofol 100 ml @ 2.7 mls/hr TITRATE PRN IV 07/22/17 11:45 UNV (Aspirin Chew) 81 mg DAILY CHEW 07/22/17 12:15 UNV (Cipro) 500 mg Q12HR PO 07/22/17 12:15 UNV (Atarax) 25 mg QID PRN PO 07/22/17 12:15 UNV (Keppra) 500 mg Q12HR PO 07/22/17 12:15 UNV (Synthroid) 100 mcg DAILY@0600 PO 07/22/17 12:15 UNV (Milk Of Magnesia Liq) 30 ml DAILY PRN PO 07/22/17 12:15 UNV (Lopressor) 50 mg BID PO 07/22/17 21:00 UNV (KCl) 10 meq DAILY PO 07/23/17 09:00 UNV Non-Formulary Medication 1 cap BID PO 07/22/17 21:00 UNV Non-Formulary Medication 150 mg DAILY PO 07/23/17 09:00 UNV Non-Formulary Medication 250 mg BID PO 07/22/17 21:00 UNV Non-Formulary Medication 1 packet DAILY PO 07/23/17 09:00 UNV Family History no family history of heart disease. Substance Use Tobacco: Alcohol: Prescription med abuse: Illicits: Psychosocial History Per prior palliative interaction: Patient is originally from [facility]. She met her when she was young teenager at the [facility]. Together they had 4 children, 3 girls and 1 boy. They lived "all over the place"per the patient's . Mrs. Guzman was a "huwt-lb-aeyu mom." Marvin and Piedad Gustafson been for approximately 62 years. They moved to [place] in 1997 and enjoyed spending time with their friends-most of whom were childhood friends . Spiritual/Cultural Factors Moravian sobeida . Living Will: Copy in medical record Health Care Surrogate: Copy in medical record Durable Power of [employer]: Copy in medical record Date completed: October 2012 Health Care Surrogate(s): Names primary Marvin, alternate daughter Liberty . Documented care wishes: Living will directs in standard verbiage that in the presence of terminal, irreversible or irrecoverable condition that artificial measures be withheld including fluids etc. and that pt be permitted to naturally with only administration of treatments necessary to comfort or alleviate pain. . Ethical and Legal Issues Patient currently intubated on mechanical vent. Underlying history of Alzheimer 's. Unable to make her own decisions, healthcare surrogate names Marvin as primary surrogate with daughter Liberty as alternative. Physical Exam Vital Signs Date Time Temp Pulse Resp B/P (MAP) Pulse Ox O2 Delivery O2 Flow Rate FiO2 07/22/17 12:38 99 40 07/22/17 12:01 77 14 174/74 (107) 97 40 07/22/17 10:15 68 17 174/72 (106) 100 Ventilator 07/22/17 10:00 80 23 172/71 (104) 100 Ventilator 50 07/22/17 09:45 74 14 133/62 (85) 100 Ventilator 50 07/22/17 09:43 100 50 07/22/17 07:57 95 Room Air 07/22/17 07:44 99.1 65 14 144/65 (91) 95 Room Air 07/22/17 07/23/17 19:00 07:00 Intake Total 1000 ml Balance 1000 ml Intake IV Total 1000 ml Exam CONSTITUTIONAL/GENERAL: This is an adequately nourished patient, sedated on mechanical vent TUBES/LINES/DRAINS: PIV BUE, morales catheter, ETT, OGT SKIN: No jaundice, rashes, or lesions. No wounds seen anteriorly. Skin temperature appropriate. Not diaphoretic. HEAD: Atraumatic. Normocephalic. EYES: Pupils 2 mm, questionable reaction to light. No scleral icterus. No injection or drainage. Fundi not examined. ENT: Nose without bleeding or purulent drainage. Limited oropharynx exam secondary ET tube, OG tube ; no visible exudates or lesions. NECK: Trachea midline. Supple, nontender. No palpable thyroid enlargement or nodularity. CARDIOVASCULAR: Regular rate and rhythm without murmur. No JVD. Peripheral pulses symmetric. RESPIRATORY/CHEST: Symmetric, unlabored respirations via ET tube done mechanical vent. Clear to auscultation. Breath sounds equal bilaterally. GASTROINTESTINAL: Abdomen soft, no apparent tenderness though patient is minimally responsive, nondistended. No hepato-splenomegaly, or palpable masses. Bowel sounds present. GENITOURINARY: Without palpable bladder distension. Morales catheter in place clear yellow urine. MUSCULOSKELETAL: Extremities without clubbing, cyanosis, or edema. No joint effusion noted. No mottling or clubbing. LYMPHATICS: No palpable cervical or supraclavicular adenopathy. NEUROLOGICAL: Sedated on mechanical vent.(Diprivan 40 mics/kilogram/minute) Minimally responsive to my exam. Slight withdrawal lower extremities to pain, slight withdrawal upper extremities pain. No eye opening. PSYCHIATRIC: No obvious anxiety/depression--limited assessment due to clinical condition. Diagnostic Tests Laboratory Laboratory Tests Test 07/22/17 08:06 07/22/17 08:16 07/22/17 08:43 07/22/17 10:15 White Blood Count 5.9 TH/MM3 (4.0-11.0) Red Blood Count 3.87 MIL/MM3 (4.00-5.30) Hemoglobin 12.5 GM/DL (11.6-15.3) Hematocrit 37.3 % (35.0-46.0) Mean Corpuscular Volume 96.2 FL (80.0-100.0) Mean Corpuscular Hemoglobin 32.2 PG (27.0-34.0) Mean Corpuscular Hemoglobin Concent 33.5 % (32.0-36.0) Red Cell Distribution Width 13.9 % (11.6-17.2) Platelet Count 207 TH/MM3 (150-450) Mean Platelet Volume 9.1 FL (7.0-11.0) Neutrophils (%) (Auto) 65.9 % (16.0-70.0) Lymphocytes (%) (Auto) 18.8 % (9.0-44.0) Monocytes (%) (Auto) 11.0 % (0.0-8.0) Eosinophils (%) (Auto) 3.7 % (0.0-4.0) Basophils (%) (Auto) 0.6 % (0.0-2.0) Neutrophils # (Auto) 3.9 TH/MM3 (1.8-7.7) Lymphocytes # (Auto) 1.1 TH/MM3 (1.0-4.8) Monocytes # (Auto) 0.6 TH/MM3 (0-0.9) Eosinophils # (Auto) 0.2 TH/MM3 (0-0.4) Basophils # (Auto) 0.0 TH/MM3 (0-0.2) CBC Comment DIFF FINAL Differential Comment Prothrombin Time 10.7 SEC (9.8-11.6) Prothromb Time International Ratio 1.0 RATIO Blood Urea Nitrogen 24 MG/DL (7-18) Creatinine 1.05 MG/DL (0.50-1.00) Random Glucose 87 MG/DL (74-106) Total Protein 6.3 GM/DL (6.4-8.2) Albumin 2.5 GM/DL (3.4-5.0) Calcium Level 8.8 MG/DL (8.5-10.1) Alkaline Phosphatase 107 U/L (45-117) Aspartate Amino Transf (AST/SGOT) 45 U/L (15-37) Alanine Aminotransferase (ALT/SGPT) 24 U/L (10-53) Total Bilirubin 0.2 MG/DL (0.2-1.0) Sodium Level 145 MEQ/L (136-145) Potassium Level 4.3 MEQ/L (3.5-5.1) Chloride Level 112 MEQ/L (98-107) Carbon Dioxide Level 27.6 MEQ/L (21.0-32.0) Anion Gap 5 MEQ/L (5-15) Estimat Glomerular Filtration Rate 50 ML/MIN (>89) Total Creatine Kinase 86 U/L (26-192) Troponin I LESS THAN 0.02 NG/ML Thyroid Stimulating Hormone 3rd Gen 3.630 uIU/ML (0.358-3.740) Valproic Acid (Depakene) Level 67 MCG/ML (50-100) Lactic Acid Level 0.9 mmol/L (0.4-2.0) Ammonia 21 MCMOL/L (11-32) Urine Color YELLOW (YELLW/STRAW) Urine Turbidity CLEAR (CLEAR) Urine pH 5.5 (5.0-8.5) Urine Specific Boles 1.026 (1.002-1.035) Urine Protein TRACE mg/dL (NEG-TRACE) Urine Glucose (UA) NEG mg/dL (NEG) Urine Ketones 10 mg/dL (NEG) Urine Occult Blood TRACE (NEG) Urine Nitrite NEG (NEG) Urine Bilirubin NEG (NEG) Urine Urobilinogen LESS THAN 2.0 MG/DL (LESS Urine Leukocyte Esterase NEG (NEG) Urine RBC 1 /hpf (0-3) Urine WBC 1 /hpf (0-5) Urine Squamous Epithelial Cells <1 /hpf (0-5) Urine Mucus FEW /lpf (OCC) Microscopic Urinalysis Comment CATH-CULT NOT IND Blood Gas Puncture Site LT RADIAL Blood Gas Patient Temperature 37.0 Blood Gas HCO3 24 mmol/L (22-26) Blood Gas Base Excess 0.3 mmol/L (-2-2) Blood Gas Oxygen Saturation 98 % (90-100) Arterial Blood pH 7.44 (7.380-7.420) Arterial Blood Partial Pressure CO2 36 mmHg (38-42) Arterial Blood Partial Pressure O2 251 mmHG (61-120) Arterial Blood Oxygen Content 16.8 Vol % (12.0-20.0) Arterial Blood Carboxyhemoglobin 0.9 % (0-4) Arterial Blood Methemoglobin 0.6 % (0-2) Blood Gas Hemoglobin 11.8 G/DL (12.0-16.0) Oxygen Delivery Device VENTILATOR Blood Gas Ventilator Setting AC/16/500/+5 Blood Gas Inspired Oxygen 50 % Result Diagram: 07/22/1780507/22/17805 Microbiology Microbiology Date/Time Source Procedure Growth Status 07/22/17 08:11 Blood Peripheral Aerobic Blood Culture Pending Received 07/22/17 08:11 Blood Peripheral Anaerobic Blood Culture Pending Received 07/22/17 08:06 Blood Peripheral Aerobic Blood Culture Pending Received 07/22/17 08:06 Blood Peripheral Anaerobic Blood Culture Pending Received Imaging Last Impressions Head CT 07/22/17744 Signed Impressions: Service Date/Time: Saturday, July 22, 2017 08:26 - CONCLUSION: 1. Atrophy. 2. No acute intracranial abnormality. Martin Olivarez Jr., MD Chest X-Ray 07/22/17744 Signed Impressions: Service Date/Time: Saturday, July 22, 2017 08:15 - CONCLUSION: No acute disease. Martin Olivarez Jr., MD Patient/Family Conference Present at Family Conference: Daughter, Family Conference Time (mins): 35 Family Conference Location: Bedside Issues Discussed: 5 PM update: return later in the afternoon, met with patient and daughter at length at bedside. Discussion included the following: * Palliative care role, purpose, approach * Additional medical, psychosocial, and spiritual history * Patients general health, functional status, and cognitive changes in the months leading up to the current hospitalization * Patient/family understanding of the current medical problems * Patient/family understanding of prognosis * Patients goals of care as best understood from advance directives and/or conversations and/or values * Current medical treatment options and benefits/burdens of those options * Review of [facility] legal decision makers * Review of CODE STATUS- affirms full code at this time though open to further discussions if condition changes * Likely scenarios comparing ongoing aggressive care with a transition to comfort measures only * Questions answered to the best of my ability * Palliative care contact information provided Patient spouse and daughter detailed that following patient hospitalization last April she never quite returned to her original self however she did stabilize and improve somewhat in the SNF setting. They indicate she still enjoyed getting upset her wheelchair daily and being taken out of doors, and participating in a few activities in the facility such as hitting a balloon with her hand etc. They endorse that she still recognized them and talk to them in a few words at a time and for the most part seemed situationally aware of them and herself. She had a good appetite though she did require full feeding at all meals fed her every day. He indicates overall aside from most recent hospitalization she had been doing okay there without significant decline. Much review of dementia progress and trajectory and expected continued decline; he does indicate that as her disease progresses she would not want further artificial measures however at this time she had still been able to eat and interact and have some quality of life. He indicates he understands his some point she will have deterioration secondary to Alzheimer and it may not be reversible. At this time he wishes to continue with aggressive workup and treatment course , he considers that there may be some reversible issue such as her not tolerating Depakote etc. to try to return her to her prior self of about a month ago, however if she does not improve or continues to worsen he is open to discussions about comfort and transition to hospice. Assessment and Plan Disease Oriented Problem List: (1) Chronic kidney disease, stage III (moderate) (2) Paroxysmal atrial fibrillation (3) Alzheimer's dementia (4) Hypothyroid (5) Respiratory failure (6) Metabolic encephalopathy Symptom Scale: (1) Dyspnea 0-10 Scale: Unable to quantify (2) Encephalopathy 0-10 Scale: Unable to quantify Pertinent Non-Medical Issues Psychosocial: Patient has lived in nursing facility since April 2016, prior to that lived at home with her . Per prior palliative interaction: Patient is originally from [facility]. She met her when she was young teenager at the [facility]. Together they had 4 children, 3 girls and 1 boy. They lived "all over the place"per the patient's . Mrs. Guzman was a "rllj-xq-ezaf mom." Marvin and Piedad Gustafson been for approximately 62 years. They moved to [place] in 1997 and enjoyed spending time with their friends-most of whom were childhood friends . Spiritual: [employer] sobe[employer] Legal:Patient currently intubated on mechanical vent. Underlying history of Alzheimer's. Unable to make her own decisions, healthcare surrogate names Santos as primary surrogate with daughter Liberty as alternative. Ethical issues impacting care: No ethical issues identified Important Contacts and healthcare surrogate Marvin Gustafson [phone] // [phone] . Prognosis Patient diagnosed with dementia approximately 7 years ago. Has continued to have expected progression of disease. She has had poor appetite, and now requires full care for ADLs and is primarily bed to wheelchair bound. [facility] resident. She has had several recent hospital visits for UTI, seizure. Though current episode may stabilize and resolve, Overall prognosis poor given progression of Alzheimer dementia. Appropriate for hospice if goals compatible. Code Status: Full Code Plan * Legal decision maker:Patient currently intubated on mechanical vent. Underlying history of Alzheimer's. Unable to make her own decisions, healthcare surrogate names Marvin as primary surrogate with daughter Liberty as alternative. * Goals: Met with patient and daughter at length.Much review of dementia progress and trajectory and expected continued decline; he does indicate that as her disease progresses she would not want further artificial measures however at this time she had still been able to eat and interact and have some quality of life. He indicates he understands his some point she will have deterioration secondary to Alzheimer and it may not be reversible. At this time he wishes to continue with aggressive workup and treatment course , considering that there may be some reversible issue such as her not tolerating Depakote etc. to try to return her to her prior self of about a month ago, however if she does not improve or continues to worsen he is open to discussions about comfort and transition to hospice. *Plan to follow with them in the coming days. * CODE STATUS: Full code * SYMPTOMS: --Encephalopathy/AMS- with reported nonresponsiveness, increased lethargy following Depakote administration last evening. Underlying history of advanced Alzheimer's dementia. CT brain negative for acute process. Recent new diagnosis of seizure, previously followed by neurology seizures felt possibly secondary to UTI, Alzheimer's dementia. Neurology evaluation pending at time of my consultation. --Dyspnea-emergently intubated for airway protection/apnea. No breathing comfortably on mechanical vent. CXR negative for acute process. * Palliative care will continue to follow during hospital course as condition evolves, to assist patient/decision-maker with understanding of medical conditions, weighing benefits/burdens of treatment options, for clarification of goals of treatment. Additionally will assist with any symptoms of palliative concern . Time Spent Total Floor Time (mins): 65 (Chart review, PE, discussion with nursing, meeting with family) Thank you for the opportunity to participate in the care of Ms. Gustafson. Attestation To help prompt me to consider important information that might be impacting today's encounter and assessment, information from prior notes written by myself or my colleagues may have been "brought forward" into today's note. My signature on this note, however, is an attestation that I personally performed the exam, history, and/or decision-making noted today, and, unless otherwise indicated, the interactions with patient, family, and staff as well as the review of records all occurred today. I also attest that the listed assessment and stated plan reflect my best clinical judgment today based on the combination of historical information, prior notes, and today's exam/ interactions. When time spent is documented, it refers only to time spent today by the signer, or if indicated, combined time spent today by collaborating physician/nurse practitioner. Cheri Saavedra Jul 22, 2017 14:22
[2017-07-22] MEDS: HEPARIN SODIUM - SQ 10,000 UNITS/ML VIAL SQ SCH ×2 (15:18→20:38)
[2017-07-22] MEDS: CIPROFLOXACIN 500 MG TAB PO SCH ×2 (15:19→20:38)
[2017-07-22] MEDS: levETIRAcetam 500 MG TAB PO SCH ×2 (15:19→20:38)
[2017-07-22] MEDS: ASPIRIN 81 MG CHEW TAB CHEW SCH (15:19)
--- NOTE | 2017-07-22 16:02 | MB ---
cc: FRANCO PETTIT M.D. DATE OF CONSULTATION 07/22/2017 DATE OF 1935, age 82 REASON FOR CONSULTATION Encephalopathy. HISTORY OF THE PRESENT ILLNESS This is an 82-year-old woman with a history of Alzheimer's dementia, advanced, who has been in a long-term for the last four years, discharged after being admitted with altered mental status, seizures and a urinary tract infection. She was started on Keppra and Depakote after being evaluated by my partner Dr. Kay at that time. She was also apparently, per chart notes, on ciprofloxacin for her UTI. Apparently since she was discharged from the hospital she developed worsening neurologic status with question of obtundation. There was some issue about her receiving her Depakote injection last night. Neurologic status worsened and she was brought in by [facility]. Apparently she was not protecting her airway and was intubated. Currently she is sedated, intubated on a ventilator. CT of the head was unremarkable. Her Depakote level showed a level of 67. PAST MEDICAL HISTORY As stated. ALLERGIES MDRO, ESBL. NO KNOWN DRUG ALLERGIES MEDICATIONS Home medicines are: 1. Synthroid. 2. Depakote 125 mg sprinkles but she takes 500 mg twice a day. 3. Keppra 500 mg b.i.d. 4. Cipro 500 mg b.i.d. 5. She is also on hydroxyzine. 6. Nuedexta 7. Benefiber. 8. Melatonin. 9. Calcium. 10. Ranitidine. 11. Baby aspirin. 12. And some other p.r.n. PHYSICAL EXAMINATION Limited. VITAL SIGNS: Temperature 99.1 rectal, pulse 77, respiratory 14, blood pressure 174/74, sating at 99% FIO2 of 40%. NEUROLOGIC: Pupils are pinpoint. She is intubated on ventilator, sedated. Does not follow any commands. Tone is decreased but does have some withdrawal in the feet to noxious stimuli. Gait cannot be assessed. LABORATORY DATA Her labs, her Depakote level was 67. She has 10 ketones, trace blood, few mucus in the urine but culture is not indicated. Her chemistries, BUN 24, creatinine 1.05, GFR is 50, albumin 2.5. TSH is normal. Hematology harden white count 5.9, platelets 207,000, hemoglobin 12.5. IMAGING Chest x-ray no acute disease. CT of the head atrophy, but no acute pathology. IMPRESSION Change in mental status, obtundation in an 82-year-old patient with history of the advanced Alzheimer's and seizures. Recommend at this point in time continuing her Keppra as well as her Depakote. Obtain an EEG and depending on findings further recommendations will be made accordingly. MD ANN Castillo/HALEY /2:21 PM /3:34 PM
[2017-07-22] MEDS: RESP: ALBUTEROL 2.5 MG/IPRATROPIUM 0.5 MG NEB (SCH) NEB ×2 (16:04→19:49)
--- NOTE | 2017-07-22 16:26 | MG ---
cc: REGGIE ARREDONDO MD Lab No: Date: 07/22/2017 Age: Sex: F Race: EEG RECORD NUMBER [id number] DATE OF 1935 INDICATION An 82-year-old female with a history of severe advanced dementia on Keppra and Depakote. DESCRIPTION Burst suppression type pattern noted, suppression lasting several seconds, bursts of theta with small frontal sharp waves at times. No driving with photic stimulation. Single EKG showing sinus rhythm. INTERPRETATION Burst suppression type pattern with small cluster of frontal sharps epoch 109. Reggie Arredondo MD MG/KK /3:56 PM /4:11 PM
[2017-07-22 17:17] LABS: CREATINE KINASE 108 U/L (26-192)
[2017-07-22] MEDS: FAMOTIDINE 20 MG TAB TUBE SCH (20:38)
[2017-07-22] MEDS: METOPROLOL TARTRATE 50 MG TAB PO SCH (20:38)
[2017-07-22] MEDS: SODIUM CHLORIDE 0.9% FLUSH 10 ML FLUSH IV FLUSH SCH (20:38)
[2017-07-22] MEDS: CHLORHEXIDINE 0.12% (ORAL KIT) 15 ML CUP MT SCH (20:39)
[2017-07-22] MEDS ORDERED: NON-FORMULARY DRUG (Saccharomyces Boulardii (Florastor) 250 MG) PO SCH (21:00)
[2017-07-22] MEDS ORDERED: NON-FORMULARY DRUG (Dextromethorphan HBr-Quinidine (Nuedexta 20-10 mg) 1 CAP) PO SCH (21:00)
[2017-07-23] VITALS (19 sets, daily range): BP systolic 149–176; BP diastolic 64–76; PULSE 46–85; RESP 12–29; TEMP 97.6–99.1; O2SAT 100
[2017-07-23] MEDS: SODIUM CHLOR 0.9% 1000 ML INJ 1,000 ML IV SCH ×3 (00:54→18:28)
[2017-07-23 01:27] LABS: CREATINE KINASE 106 U/L (26-192)
[2017-07-23] MEDS: RESP: ALBUTEROL 2.5 MG/IPRATROPIUM 0.5 MG NEB (SCH) NEB ×4 (03:04→20:48)
[2017-07-23] MEDS: CHLORHEXIDINE GLUCONATE 2 % 1 PACK (2 CLOTHS) TOP SCH (04:00)
[2017-07-23] MEDS: LEVOTHYROXINE SODIUM 100 MCG TAB PO SCH (05:19)
[2017-07-23 06:48] LABS: BASOPHIL % 0.4 % (0.0-2.0); EOSINOPHIL # 0.2 TH/MM3 (0-0.4); EOSINOPHIL % 3.5 % (0.0-4.0); HEMATOCRIT 36.8 % (35.0-46.0); HEMO FLAGS DIFF FINAL; LYMPH % 19.7 % (9.0-44.0); LYMPHOCYTE # 1.3 TH/MM3 (1.0-4.8); MEAN CELL VOLUME 97.9 FL (80.0-100.0); MEAN CORPUSCULAR HEMOGLOBIN 31.9 PG (27.0-34.0); MEAN CORPUSCULAR HGB CONC 32.6 % (32.0-36.0); MONO % 16.8 % (0.0-8.0); NEUT % 59.6 % (16.0-70.0); PLATELET COUNT 137 TH/MM3 (150-450); RED BLOOD COUNT 3.76 MIL/MM3 (4.00-5.30); RED CELL DISTRIBUTION WIDTH 14.2 % (11.6-17.2); WHITE BLOOD COUNT 6.8 TH/MM3 (4.0-11.0)
[2017-07-23 07:12] LABS: ANION GAP 7 MEQ/L (5-15); AST (GOT) 45 U/L (15-37); BICARBONATE 25.7 MEQ/L (21.0-32.0); BLOOD UREA NITROGEN 25 MG/DL (7-18); CHLORIDE 114 MEQ/L (98-107); GLOMERULAR FILTRATION RATE 55 ML/MIN (>89); POTASSIUM 3.9 MEQ/L (3.5-5.1); SODIUM (NA) 147 MEQ/L (136-145)
[2017-07-23 07:16] LABS: ALKALINE PHOSPHATASE 100 U/L (45-117); ALT (GPT) 34 U/L (10-53); TOTAL BILIRUBIN ADULT 0.1 MG/DL (0.2-1.0)
[2017-07-23] MEDS: POTASSIUM CHLORIDE 10 MEQ CAP PO SCH (08:43)
[2017-07-23] MEDS: METOPROLOL TARTRATE 50 MG TAB PO SCH ×3 (08:43→19:42)
[2017-07-23] MEDS: levETIRAcetam 500 MG TAB PO SCH ×2 (08:43→21:00)
[2017-07-23] MEDS: CHLORHEXIDINE 0.12% (ORAL KIT) 15 ML CUP MT SCH ×2 (08:43→19:41)
[2017-07-23] MEDS: FAMOTIDINE 20 MG TAB TUBE SCH ×2 (08:43→19:42)
[2017-07-23] MEDS: HEPARIN SODIUM - SQ 10,000 UNITS/ML VIAL SQ SCH ×2 (08:43→19:40)
[2017-07-23] MEDS: ASPIRIN 81 MG CHEW TAB CHEW SCH (08:43)
[2017-07-23] MEDS: CIPROFLOXACIN 500 MG TAB PO SCH ×2 (08:44→19:42)
[2017-07-23] MEDS: SODIUM CHLORIDE 0.9% FLUSH 10 ML FLUSH IV FLUSH SCH ×2 (08:44→19:42)
[2017-07-23] MEDS ORDERED: NON-FORMULARY DRUG (Ranitidine 150 MG) PO SCH (09:00)
[2017-07-23] MEDS ORDERED: WHEAT DEXTRIN PO SCH (09:00)
[2017-07-23] MEDS: PROPOFOL 1000 MG/100 ML INJ 100 ML IV PRN (09:33)
--- NOTE | 2017-07-23 11:39 | HHI.HCPN ---
Reason for visit a. To assist with evaluation and management of symptoms including: Altered mental status b. To assist medical decision maker(s) with: better understanding of current medical conditions; weighing benefits/burdens of medical treatment options; making medical treatment decisions. Subjective/Interval History Pt seen today to follow up on comfort, goals. Hemodynamically table overnight. [facility] sedation has been held this morning for further neurological assessment.. Labs stable/ unremarkable. BC obtained 07/22 No growth x 1 day. No new imaging. s/p neurology consultation-- Dr Perez evaluated, cont antiepileptics, follow EEG, clinical course. EEG interpreted per Dr. Lewis, "Burst suppression type pattern with small cluster of frontal sharps epoch", discussed with Dr. Gilliam. Dr Perez to follow EEG, further recommendations from neuro pending. Patient is seen in room no visitors present. Nursing informs family has not been up yet today. Sedation is noted to be off. To my verbal in touch she does begin moving spontaneously, bends legs up, moves arms around, and moves head from side to side. She does not open her eyes to my touch or voice or command. She does not appear to be moving purposely however is moving all over rather restlessly with stimuli. She begins coughing strongly on ET tube. She does not follow any commands for me. She does localize and withdrawal to pain on all 4 extremities. She is calm and with no apparent distress when not being stimulated. I will wait to update family at this point for further input from neurology regarding EEG finding. Nursing provided with my contact number to notify me when family arrives. . Family/friend interactions 1pm: called later by pt now at bedside. Met w pt and daughter at bedside. Review current assessment, neuro has not interpreted EEG yet, though pt not showing signs of waking or improving, even off sedation. Explore continued tx vs comfort focus, and daughter wish to continue aggressive treatment for a few days, and pending neurology input RE prognosis, and if pt improves/declines will make further decisions. If pt deteriorates or does not improve they will consider transition to comfort focus /hospice per pt wishes. . Advance Directives Living Will: Copy in medical record Health Care Surrogate: Copy in medical record Durable Power of [employer]: Copy in medical record Advance Directive Specifics Date completed: October 2012 Health Care Surrogate(s): Names primary Marvin, alternate daughter Liberty . Documented care wishes: Living will directs in standard verbiage that in the presence of terminal, irreversible or irrecoverable condition that artificial measures be withheld including fluids etc. and that pt be permitted to naturally with only administration of treatments necessary to comfort or alleviate pain. . Objective Vital Signs Date Time Temp Pulse Resp B/P (MAP) Pulse Ox O2 Delivery O2 Flow Rate FiO2 07/23/17 10:00 54 07/23/17 08:16 100 40 07/23/17 08:00 97.6 50 13 164/69 (100) 100 07/23/17 08:00 50 07/23/17 06:00 50 07/23/17 04:00 49 07/23/17 03:54 100 40 07/23/17 03:00 98.1 49 12 168/67 (100) 100 07/23/17 02:00 47 07/23/17 00:00 46 07/22/17 23:46 100 40 07/22/17 23:00 98.3 53 12 98/52 (67) 99 07/22/17 22:00 58 07/22/17 20:02 97.8 64 12 165/75 (105) 100 07/22/17 20:00 65 07/22/17 19:43 07/22/17 19:43 100 40 07/22/17 18:00 64 12 133/63 (86) 100 Ventilator 2.00 40 07/22/17 17:00 68 12 120/60 (80) 100 Ventilator 40 07/22/17 16:00 68 12 164/72 (102) 100 Ventilator 40 07/22/17 15:59 100 40 07/22/17 15:33 69 12 150/69 (96) 100 Ventilator 40 07/22/17 14:31 71 12 132/62 (85) 100 Ventilator 40 07/22/17 13:00 78 12 140/65 (90) 100 Ventilator 40 07/22/17 12:38 99 40 07/22/17 12:01 77 14 174/74 (107) 97 40 Intake & Output 07/23/17 07/23/17 07:00 19:00 Intake Total 180 ml 128 ml Output Total 300 ml Balance -120 ml 128 ml Intake IV Total 128 ml Tube Feeding 180 ml Output Urine Total 300 ml Stool Total 0 ml Physical Exam CONSTITUTIONAL/GENERAL: This is an adequately nourished patient, on mechanical vent TUBES/LINES/DRAINS: PIV BUE, morales catheter, ETT, OGT SKIN: No jaundice, rashes, or lesions. Several areas of ecchymosis bilateral arms. Skin temperature appropriate. Not diaphoretic. EYES: Pupils 3 mm, +reaction to light. No scleral icterus. No injection or drainage. Fundi not examined. CARDIOVASCULAR: Regular rate and rhythm without murmur. No JVD. Peripheral pulses symmetric. Slight edema to upper extremities. RESPIRATORY/CHEST: Symmetric, unlabored respirations via ET tube on mechanical vent. Mildly tachypneic and coughing when stimulated however breathing comfortably when not stimulated. Clear to auscultation. Breath sounds equal bilaterally. + Copious clear oral secretions around ET tube. GASTROINTESTINAL: Abdomen soft, no apparent tenderness though patient is minimally responsive, nondistended. No hepato-splenomegaly, or palpable masses. Bowel sounds present. GENITOURINARY: Without palpable bladder distension. Morales catheter in place clear yellow urine. NEUROLOGICAL: Sedation (Diprivan) has been held this morning. Patient does start moving and become restless with touch and verbal stimuli. She does not open her eyes. She does not follow any commands. She does localize and withdrawal to pain on all 4 extremities. Strong cough on mechanical vent. PSYCHIATRIC: Some restlessness observed during stimuli for exam. Diagnostic Tests Laboratory Laboratory Tests Test 07/22/17 08:06 07/22/17 08:16 07/22/17 08:43 07/22/17 10:15 White Blood Count 5.9 TH/MM3 (4.0-11.0) Red Blood Count 3.87 MIL/MM3 (4.00-5.30) Hemoglobin 12.5 GM/DL (11.6-15.3) Hematocrit 37.3 % (35.0-46.0) Mean Corpuscular Volume 96.2 FL (80.0-100.0) Mean Corpuscular Hemoglobin 32.2 PG (27.0-34.0) Mean Corpuscular Hemoglobin Concent 33.5 % (32.0-36.0) Red Cell Distribution Width 13.9 % (11.6-17.2) Platelet Count 207 TH/MM3 (150-450) Mean Platelet Volume 9.1 FL (7.0-11.0) Neutrophils (%) (Auto) 65.9 % (16.0-70.0) Lymphocytes (%) (Auto) 18.8 % (9.0-44.0) Monocytes (%) (Auto) 11.0 % (0.0-8.0) Eosinophils (%) (Auto) 3.7 % (0.0-4.0) Basophils (%) (Auto) 0.6 % (0.0-2.0) Neutrophils # (Auto) 3.9 TH/MM3 (1.8-7.7) Lymphocytes # (Auto) 1.1 TH/MM3 (1.0-4.8) Monocytes # (Auto) 0.6 TH/MM3 (0-0.9) Eosinophils # (Auto) 0.2 TH/MM3 (0-0.4) Basophils # (Auto) 0.0 TH/MM3 (0-0.2) CBC Comment DIFF FINAL Differential Comment Prothrombin Time 10.7 SEC (9.8-11.6) Prothromb Time International Ratio 1.0 RATIO Blood Urea Nitrogen 24 MG/DL (7-18) Creatinine 1.05 MG/DL (0.50-1.00) Random Glucose 87 MG/DL (74-106) Total Protein 6.3 GM/DL (6.4-8.2) Albumin 2.5 GM/DL (3.4-5.0) Calcium Level 8.8 MG/DL (8.5-10.1) Alkaline Phosphatase 107 U/L (45-117) Aspartate Amino Transf (AST/SGOT) 45 U/L (15-37) Alanine Aminotransferase (ALT/SGPT) 24 U/L (10-53) Total Bilirubin 0.2 MG/DL (0.2-1.0) Sodium Level 145 MEQ/L (136-145) Potassium Level 4.3 MEQ/L (3.5-5.1) Chloride Level 112 MEQ/L (98-107) Carbon Dioxide Level 27.6 MEQ/L (21.0-32.0) Anion Gap 5 MEQ/L (5-15) Estimat Glomerular Filtration Rate 50 ML/MIN (>89) Total Creatine Kinase 86 U/L (26-192) Troponin I LESS THAN 0.02 NG/ML Thyroid Stimulating Hormone 3rd Gen 3.630 uIU/ML (0.358-3.740) Valproic Acid (Depakene) Level 67 MCG/ML (50-100) Lactic Acid Level 0.9 mmol/L (0.4-2.0) Ammonia 21 MCMOL/L (11-32) Urine Color YELLOW (YELLW/STRAW) Urine Turbidity CLEAR (CLEAR) Urine pH 5.5 (5.0-8.5) Urine Specific Shelly 1.026 (1.002-1.035) Urine Protein TRACE mg/dL (NEG-TRACE) Urine Glucose (UA) NEG mg/dL (NEG) Urine Ketones 10 mg/dL (NEG) Urine Occult Blood TRACE (NEG) Urine Nitrite NEG (NEG) Urine Bilirubin NEG (NEG) Urine Urobilinogen LESS THAN 2.0 MG/DL (LESS Urine Leukocyte Esterase NEG (NEG) Urine RBC 1 /hpf (0-3) Urine WBC 1 /hpf (0-5) Urine Squamous Epithelial Cells <1 /hpf (0-5) Urine Mucus FEW /lpf (OCC) Microscopic Urinalysis Comment CATH-CULT NOT IND Blood Gas Puncture Site LT RADIAL Blood Gas Patient Temperature 37.0 Blood Gas HCO3 24 mmol/L (22-26) Blood Gas Base Excess 0.3 mmol/L (-2-2) Blood Gas Oxygen Saturation 98 % (90-100) Arterial Blood pH 7.44 (7.380-7.420) Arterial Blood Partial Pressure CO2 36 mmHg (38-42) Arterial Blood Partial Pressure O2 251 mmHG (61-120) Arterial Blood Oxygen Content 16.8 Vol % (12.0-20.0) Arterial Blood Carboxyhemoglobin 0.9 % (0-4) Arterial Blood Methemoglobin 0.6 % (0-2) Blood Gas Hemoglobin 11.8 G/DL (12.0-16.0) Oxygen Delivery Device VENTILATOR Blood Gas Ventilator Setting AC/16/500/+5 Blood Gas Inspired Oxygen 50 % Test 07/22/17 16:38 07/22/17 20:00 07/23/17 00:32 07/23/17 04:50 Total Creatine Kinase 108 U/L (26-192) 106 U/L (26-192) Troponin I LESS THAN 0.02 NG/ML LESS THAN 0.02 NG/ML Nasal Screen MRSA (PCR) MRSA DETECTED (NOT DETECT) White Blood Count 6.8 TH/MM3 (4.0-11.0) Red Blood Count 3.76 MIL/MM3 (4.00-5.30) Hemoglobin 12.0 GM/DL (11.6-15.3) Hematocrit 36.8 % (35.0-46.0) Mean Corpuscular Volume 97.9 FL (80.0-100.0) Mean Corpuscular Hemoglobin 31.9 PG (27.0-34.0) Mean Corpuscular Hemoglobin Concent 32.6 % (32.0-36.0) Red Cell Distribution Width 14.2 % (11.6-17.2) Platelet Count 137 TH/MM3 (150-450) Mean Platelet Volume 9.8 FL (7.0-11.0) Neutrophils (%) (Auto) 59.6 % (16.0-70.0) Lymphocytes (%) (Auto) 19.7 % (9.0-44.0) Monocytes (%) (Auto) 16.8 % (0.0-8.0) Eosinophils (%) (Auto) 3.5 % (0.0-4.0) Basophils (%) (Auto) 0.4 % (0.0-2.0) Neutrophils # (Auto) 4.0 TH/MM3 (1.8-7.7) Lymphocytes # (Auto) 1.3 TH/MM3 (1.0-4.8) Monocytes # (Auto) 1.1 TH/MM3 (0-0.9) Eosinophils # (Auto) 0.2 TH/MM3 (0-0.4) Basophils # (Auto) 0.0 TH/MM3 (0-0.2) CBC Comment DIFF FINAL Differential Comment Blood Urea Nitrogen 25 MG/DL (7-18) Creatinine 0.97 MG/DL (0.50-1.00) Random Glucose 79 MG/DL (74-106) Total Protein 6.0 GM/DL (6.4-8.2) Albumin 2.4 GM/DL (3.4-5.0) Calcium Level 8.7 MG/DL (8.5-10.1) Alkaline Phosphatase 100 U/L (45-117) Aspartate Amino Transf (AST/SGOT) 45 U/L (15-37) Alanine Aminotransferase (ALT/SGPT) 34 U/L (10-53) Total Bilirubin 0.1 MG/DL (0.2-1.0) Sodium Level 147 MEQ/L (136-145) Potassium Level 3.9 MEQ/L (3.5-5.1) Chloride Level 114 MEQ/L (98-107) Carbon Dioxide Level 25.7 MEQ/L (21.0-32.0) Anion Gap 7 MEQ/L (5-15) Estimat Glomerular Filtration Rate 55 ML/MIN (>89) Result Diagram: 07/23/17 04507/23/17449 Microbiology Microbiology Date/Time Source Procedure Growth Status 07/22/17 08:11 Blood Peripheral Aerobic Blood Culture - Preliminary NO GROWTH IN 1 DAY Resulted 07/22/17 08:11 Blood Peripheral Anaerobic Blood Culture - Preliminary NO GROWTH IN 1 DAY Resulted 07/22/17 08:06 Blood Peripheral Aerobic Blood Culture - Preliminary NO GROWTH IN 1 DAY Resulted 07/22/17 08:06 Blood Peripheral Anaerobic Blood Culture - Preliminary NO GROWTH IN 1 DAY Resulted Imaging Last Impressions Head CT 07/22/17744 Signed Impressions: Service Date/Time: Thursday, July 22, 2017 08:26 - CONCLUSION: 1. Atrophy. 2. No acute intracranial abnormality. Martin Olivarez Jr., MD Chest X-Ray 07/22/17744 Signed Impressions: Service Date/Time: Saturday, July 22, 2017 08:15 - CONCLUSION: No acute disease. Martin Olivarez Jr., MD Assessment and Plan Disease Oriented Problem List: (1) Chronic kidney disease, stage III (moderate) (2) Paroxysmal atrial fibrillation (3) Alzheimer's dementia (4) Hypothyroid (5) Respiratory failure (6) Metabolic encephalopathy Symptom Scale: (1) Dyspnea 0-10 Scale: Unable to quantify (2) Encephalopathy 0-10 Scale: Unable to quantify Pertinent Non-Medical Issues Psychosocial: Patient has lived in nursing facility since April 2016, prior to that lived at home with her . Per prior palliative interaction: Patient is originally from [facility]. She met her when she was young teenager at the [facility]. Together they had 4 children, 3 girls and 1 boy. They lived "all over the place"per the patient's . Mrs. Guzman was a "[id number] mom." Marvin and Piedad Gustafson been for approximately 62 years. They moved to [place] in 1997 and enjoyed spending time with their friends-most of whom were childhood friends . Spiritual: [employer] Legal:Patient currently intubated on mechanical vent. Underlying history of Alzheimer's. Unable to make her own decisions, healthcare surrogate names Santos as primary surrogate with daughter Liberty as alternative. Ethical issues impacting care: No ethical issues identified Important Contacts and healthcare surrogate Marvin Gustafson [phone] // [phone] . Prognosis Patient diagnosed with dementia approximately 7 years ago. Has continued to have expected progression of disease. She has had poor appetite, and now requires full care for ADLs and is primarily bed to wheelchair bound. intermediate resident. She has had several recent hospital visits for UTI, seizure. Though current episode may stabilize and resolve, Overall prognosis poor given progression of Alzheimer dementia. Appropriate for hospice if goals compatible. Code Status: Full Code Plan * Legal decision maker:Patient currently intubated on mechanical vent. Underlying history of Alzheimer's. Unable to make her own decisions, healthcare surrogate names debra Wong as primary surrogate with daughter Liberty as alternative. * Goals: Met with patient and daughter at length upon initial consultation.Much review of dementia progress and trajectory and expected continued decline; he does indicate that as her disease progresses she would not want further artificial measures however at this time she had still been able to eat and interact and have some quality of life. He indicates he understands his some point she will have deterioration secondary to Alzheimer and it may not be reversible. At this time he wishes to continue with aggressive workup and treatment course , considering that there may be some reversible issue such as her not tolerating Depakote etc. to try to return her to her prior self of about a month ago, however if she does not improve or continues to worsen in the next few days he is open to discussions about comfort and transition to hospice. * CODE STATUS: Full code * SYMPTOMS: --Encephalopathy/AMS- with reported nonresponsiveness, increased lethargy following Depakote administration last evening. Underlying history of advanced Alzheimer's dementia. CT brain negative for acute process. Recent new diagnosis of seizure, previously followed by neurology seizures felt possibly secondary to UTI, Alzheimer's dementia. Neurology consulted, cont seizure medications, follow EEG. --Dyspnea-emergently intubated for airway protection/apnea. Now breathing comfortably on mechanical vent. CXR negative for acute process. * Palliative care will continue to follow during hospital course as condition evolves, to assist patient/decision-maker with understanding of medical conditions, weighing benefits/burdens of treatment options, for clarification of goals of treatment. Additionally will assist with any symptoms of palliative concern . Time Spent Total Floor Time (mins): 30 (PE, chart review, discussion with nurses, critical care, family ) Attestation To help prompt me to consider important information that might be impacting today's encounter and assessment, information from prior notes written by myself or my colleagues may have been "brought forward" into today's note. My signature on this note, however, is an attestation that I personally performed the exam, history, and/or decision-making noted today, and, unless otherwise indicated, the interactions with patient, family, and staff as well as the review of records all occurred today. I also attest that the listed assessment and stated plan reflect my best clinical judgment today based on the combination of historical information, prior notes, and today's exam/ interactions. When time spent is documented, it refers only to time spent today by the signer, or if indicated, combined time spent today by collaborating physician/nurse practitioner. Cheri Saavedra Jul 23, 2017 11:39
[2017-07-23] MEDS: VALPROIC ACID SYRUP 250 MG/5 ML UDC OG-TUBE SCH ×2 (12:21→19:41)
--- NOTE | 2017-07-23 14:49 | HHI.PR ---
Subjective Remarks now off sedation on vent intubated Objective Vital Signs Date Time Temp Pulse Resp B/P (MAP) Pulse Ox O2 Delivery O2 Flow Rate FiO2 07/23/17 14:00 62 07/23/17 12:00 67 07/23/17 12:00 97.6 67 29 176/76 (109) 100 07/23/17 11:35 100 40 07/23/17 10:00 54 07/23/17 08:16 100 40 07/23/17 08:00 97.6 50 13 164/69 (100) 100 07/23/17 08:00 50 07/23/17 06:00 50 07/23/17 04:00 49 07/23/17 03:54 100 40 07/23/17 03:00 98.1 49 12 168/67 (100) 100 07/23/17 02:00 47 07/23/17 00:00 46 07/22/17 23:46 100 40 07/22/17 23:00 98.3 53 12 98/52 (67) 99 07/22/17 22:00 58 07/22/17 20:02 97.8 64 12 165/75 (105) 100 07/22/17 20:00 65 07/22/17 19:43 07/22/17 19:43 100 40 07/22/17 18:00 64 12 133/63 (86) 100 Ventilator 2.00 40 07/22/17 17:00 68 12 120/60 (80) 100 Ventilator 40 07/22/17 16:00 68 12 164/72 (102) 100 Ventilator 40 07/22/17 15:59 100 40 07/22/17 15:33 69 12 150/69 (96) 100 Ventilator 40 I/O 07/22/17 07/22/17 07/22/17 07/23/17 07/23/17 07/23/17 07:00 15:00 23:00 07:00 15:00 23:00 Intake Total 1100 ml 180 ml 128 ml Output Total 300 ml Balance 1100 ml -120 ml 128 ml Intake IV Total 1100 ml 128 ml Tube Feeding 180 ml Output Urine Total 300 ml Stool Total 0 ml Result Diagram: 07/23/17 0450 07/23/[address] neg eeg c/w burst supression and small sharps epoch 109 Objective Remarks intub vent overbreaths perrla 2-1mm corneals does not follow commands does w/d in all extremities to pain and noxious stimuli Assessment and Plan Assessment and Plan AD ?sz encephalopathy -repeat eeg in am -poor prognosis given hx of AD =continue current care -hopefully can be extubated if not family to decide ongoing care -palliative on case cont AED vpa-lev watch for sz Birgit Perez MD Jul 23, 2017 14:49
--- NOTE | 2017-07-23 15:07 | HHI.CCPN ---
Subjective Remarks/Hospital Course 07/22: 82-year-old female with a medical history significant for advanced Alzheimer's dementia who [facility] was recently discharged after being admitted with altered mental status seizures and UTI. She was initiated on Keppra and Depakote after being evaluated by Dr. Kay at that time. She was also started on ciprofloxacin and was evaluated by ID for a UTI. Since her discharge patient developed worsening neurologic status yesterday with question of obtundation. There was a question of her receiving Depakote injection last night following which her neurologic status continued to worsen hence she was brought to the ER by [facility]. Patient was not protecting her airway per ER physician with some gurgling sounds on arrival hence was intubated for airway protection and placed on mechanical ventilation. Head CT done in the ER was negative for any intracranial hemorrhage. Valproate levels were in the upper end of the therapeutic range. Patient was sedated with propofol following intubation. She was accepted for admission by critical care medicine service. When I evaluated the patient she was sedated with propofol, orally intubated on mechanical ventilation. History was obtained by reviewing records and discussion with Dr. Goss as family was not available at the time of my evaluation. 07/23: Remains encephalopathic off sedation, orally intubated on mechanical ventilation. EEG done yesterday showed burst suppression. Objective Vital Signs Date Time Temp Pulse Resp B/P (MAP) Pulse Ox O2 Delivery O2 Flow Rate FiO2 07/23/17 14:00 62 07/23/17 12:00 97.6 29 176/76 (109) 100 07/23/17 11:35 40 07/22/17 18:00 Ventilator 2.00 Intake and Output 07/23/17 07/23/17 07/24/17 08:00 16:00 00:00 Intake Total 180 ml 128 ml Output Total 300 ml Balance -120 ml 128 ml Result Diagram: 07/23/1744907/23/17449 Imaging Last Impressions Head CT 07/22/17744 Signed Impressions: Service Date/Time: Saturday, July 22, 2017 08:26 - CONCLUSION: 1. Atrophy. 2. No acute intracranial abnormality. Martin Olivarez Jr., MD Chest X-Ray 07/22/1767 Signed Impressions: Service Date/Time: Saturday, July 22, 2017 08:15 - CONCLUSION: No acute disease. Martin Olivarez Jr., MD Objective Remarks HEENT/ Neuro: Sedated/encephalopathic, orally intubated, Pallor present, no icterus, tongue/ mucosa moist. Neck: No JVD Chest/Pulm: on mech vent, good air entry bilaterally, no wheezing or crackles CVS: S1-S2 regular, no murmur GI/abdomen: soft, nontender, bowel sounds sluggish Extremities: warm bilaterally, no edema A/P Assessment and Plan 82-year-old female with: Worsening encephalopathy Recent seizure Advanced as I'm his dementia Recent UTI Acute respiratory failure on mechanical ventilation Plan: Neuro: Sedation with propofol. Follow neuro checks per ICU protocol. Daily sedation vacation. Continue Keppra/ valproate per neurology. Dr. Perez from neurology following. EEG done on 07/22 with burst suppression. Cardiovascular: IV hydration, watch for hypotension. Continue antihypertensives Pulmonary: Continue mechanical ventilation, vent bundle, bronchodilators as needed. We will initiate daily C Pap trials and await improvement in neurologic status prior to considering extubation. GI/liver: Started tube feeds and advanced to goal as tolerated. Renal/: IV hydration, strict intake output, monitor and replete electrolites, follow BUN creatinine. ID: Continue ciprofloxacin 500 mg via OG tube twice a day for 3 more days to complete therapy for recent UTI per ID recommendation. Check sputum for Gram stain and culture. Endocrine: SSI for glycemic control as needed. Heme: Follow CBC Prophylaxis: Pepcid/ SCDs, Heparin subcutaneously Consulted palliative care to assist with deciding goals of therapy in view of her advanced Alzheimer's disease. Patient's family wishes to wait for a few days to see if patient improves prior to making any decisions regarding CODE STATUS and de-escalation of therapy. Discussed with Cheri Saavedra from palliative care team. Prognosis appears extremely poor. Condition critical. Time spent on critical care excluding procedures 40 minutes Javi Gilliam MD Jul 23, 2017 15:07
--- NOTE | 2017-07-23 21:56 | MG ---
cc: REGGIE ARREDONDO MD Lab No: [id number] Date: 07/23/17 Age: 82 Sex: F Race: DATE OF 1935 HISTORY An 82-year-old female mental status changes. DESCRIPTION 1-3 Hz delta activity with mixed theta occurring. Pseudo periodic frontal sharp waves occurred off and on. No driving with photic stimulation. Single lead EKG showing sinus rhythm. INTERPRETATION Moderate to severe encephalopathy. Clinical correlation. Reggie Arredondo MD MG/EO /9:16 PM /9:39 PM
[2017-07-24] VITALS (18 sets, daily range): BP systolic 109–156; BP diastolic 52–94; PULSE 64–97; RESP 13–22; TEMP 98.9–100.1; O2SAT 99–100
[2017-07-24] MEDS: RESP: ALBUTEROL 2.5 MG/IPRATROPIUM 0.5 MG NEB (SCH) NEB ×4 (03:45→19:19)
[2017-07-24] MEDS: CHLORHEXIDINE GLUCONATE 2 % 1 PACK (2 CLOTHS) TOP SCH (04:00)
[2017-07-24] MEDS: LEVOTHYROXINE SODIUM 100 MCG TAB PO SCH (05:16)
[2017-07-24] MEDS: SODIUM CHLOR 0.9% 1000 ML INJ 1,000 ML IV SCH ×2 (08:36→22:18)
[2017-07-24] MEDS: CIPROFLOXACIN 500 MG TAB PO SCH ×2 (08:37→19:54)
[2017-07-24] MEDS: levETIRAcetam 500 MG TAB PO SCH ×2 (08:37→19:54)
[2017-07-24] MEDS: CHLORHEXIDINE 0.12% (ORAL KIT) 15 ML CUP MT SCH ×2 (08:37→19:53)
[2017-07-24] MEDS: VALPROIC ACID SYRUP 250 MG/5 ML UDC OG-TUBE SCH ×2 (08:37→19:54)
[2017-07-24] MEDS: FAMOTIDINE 20 MG TAB TUBE SCH ×2 (08:37→19:54)
[2017-07-24] MEDS: ASPIRIN 81 MG CHEW TAB CHEW SCH (08:37)
[2017-07-24] MEDS: METOPROLOL TARTRATE 50 MG TAB PO SCH ×2 (08:37→19:54)
[2017-07-24] MEDS: SODIUM CHLORIDE 0.9% FLUSH 10 ML FLUSH IV FLUSH SCH ×2 (08:38→19:53)
[2017-07-24] MEDS: HEPARIN SODIUM - SQ 10,000 UNITS/ML VIAL SQ SCH ×2 (08:38→19:55)
[2017-07-24] MEDS: ACETAMINOPHEN 325 MG TAB PO PRN (09:38)
[2017-07-24] MEDS: POTASSIUM CHLORIDE 10 MEQ CAP PO SCH (09:39)
--- NOTE | 2017-07-24 15:49 | HHI.HCPN ---
Reason for visit a. To assist with evaluation and management of symptoms including: Altered mental status b. To assist medical decision maker(s) with: better understanding of current medical conditions; weighing benefits/burdens of medical treatment options; making medical treatment decisions. Subjective/Interval History Pt seen today to follow up on comfort, goals. Patient seen in medical ICU. Remains on mechanical ventilation, sedation off since yesterday morning. Patient briefly opening eyes to verbal stimuli, restless during my assessment. Not following any commands or tracking with eyes. EEG 07/23/17 showing moderate to severe encephalopathy. Max temperature today 100.1, blood cultures were no growth in 2 days. Stable hemodynamically, currently 35% FiO2, oxygen saturation in the high 90s. Neurology, Dr. Perez following. No family at bedside during my visit. Telephone conversation with patient's Marvin Gustafson. Medical update provided. tells me that goal of therapy is to allow for a few more days to reevaluate clinical condition. Family may consider transition to comfort-directed care in the setting of no meaningful recovery. Case discussed with bedside RN Leyla. . Family/friend interactions See interval note. . Advance Directives Living Will: Copy in medical record Health Care Surrogate: Copy in medical record Durable Power of [employer]: Copy in medical record Advance Directive Specifics Date completed: October 2012 Health Care Surrogate(s): Names primary Marvin, alternate daughter Liberty . Documented care wishes: Living will directs in standard verbiage that in the presence of terminal, irreversible or irrecoverable condition that artificial measures be withheld including fluids etc. and that pt be permitted to naturally with only administration of treatments necessary to comfort or alleviate pain. . Significant change in goals: Goals of care remain the same. Continue aggressive management, allow a few more days to evaluate clinical condition. . Objective Vital Signs Date Time Temp Pulse Resp B/P (MAP) Pulse Ox O2 Delivery O2 Flow Rate FiO2 07/24/17 15:02 100 35 07/24/17 14:00 65 07/24/17 12:00 99.3 66 13 121/57 (78) 99 07/24/17 12:00 40 07/24/17 12:00 66 07/24/17 10:48 35 07/24/17 10:48 100 35 07/24/17 10:30 40 07/24/17 10:00 80 07/24/17 08:00 100.1 97 16 149/67 (94) 100 07/24/17 08:00 97 07/24/17 08:00 40 07/24/17 07:26 100 40 07/24/17 06:00 89 07/24/17 04:05 100 40 07/24/17 04:00 40 07/24/17 04:00 90 07/24/17 04:00 99.3 90 22 156/94 (114) 100 07/24/17 02:00 90 07/24/17 01:00 100 40 07/24/17 00:00 40 07/24/17 00:00 89 07/24/17 00:00 99.3 89 14 126/60 (82) 100 07/23/17 22:25 100 40 07/23/17 22:00 84 07/23/17 20:00 85 07/23/17 20:00 99.1 85 17 155/64 (94) 100 07/23/17 20:00 40 07/23/17 19:30 100 40 07/23/17 18:00 85 07/23/17 16:00 40 07/23/17 16:00 97.8 72 15 149/64 (92) 100 07/23/17 16:00 72 07/23/17 15:54 100 40 Intake & Output 07/24/17 07/24/17 07:00 19:00 Intake Total 821 ml 1000 ml Output Total 450 ml Balance 371 ml 1000 ml Intake IV Total 1000 ml Tube Feeding 721 ml Other 100 ml Output Urine Total 450 ml # Bowel Movements 0 Physical Exam CONSTITUTIONAL/GENERAL: This is an adequately nourished patient, on mechanical vent. TUBES/LINES/DRAINS: PIV BUE, morales catheter, ETT, OGT SKIN: No jaundice, rashes, or lesions. Several areas of ecchymosis bilateral arms. Skin temperature appropriate. Not diaphoretic. EYES: Pupils 3 mm, +reaction to light. No scleral icterus. No injection or drainage. Fundi not examined. CARDIOVASCULAR: Regular rate and rhythm without murmur. No JVD. Peripheral pulses symmetric. Slight edema to upper extremities, right hand more than left hand. RESPIRATORY/CHEST: Symmetric, unlabored respirations via ET tube on mechanical vent. Clear to auscultation. Breath sounds equal bilaterally. + Copious clear oral secretions around ET tube. GASTROINTESTINAL: Abdomen soft, no apparent tenderness though patient is minimally responsive, nondistended. No hepato-splenomegaly, or palpable masses. Bowel sounds present. GENITOURINARY: Without palpable bladder distension. Morales catheter in place clear yellow urine. NEUROLOGICAL: Off sedation. Briefly opening eyes to verbal stimuli. Not tracking or following any commands. Strong cough on mechanical vent. PSYCHIATRIC: Some restlessness observed during stimuli for exam. . Diagnostic Tests Laboratory Laboratory Tests Test 07/22/17 08:06 07/22/17 08:16 07/22/17 08:43 07/22/17 10:15 White Blood Count 5.9 TH/MM3 (4.0-11.0) Red Blood Count 3.87 MIL/MM3 (4.00-5.30) Hemoglobin 12.5 GM/DL (11.6-15.3) Hematocrit 37.3 % (35.0-46.0) Mean Corpuscular Volume 96.2 FL (80.0-100.0) Mean Corpuscular Hemoglobin 32.2 PG (27.0-34.0) Mean Corpuscular Hemoglobin Concent 33.5 % (32.0-36.0) Red Cell Distribution Width 13.9 % (11.6-17.2) Platelet Count 207 TH/MM3 (150-450) Mean Platelet Volume 9.1 FL (7.0-11.0) Neutrophils (%) (Auto) 65.9 % (16.0-70.0) Lymphocytes (%) (Auto) 18.8 % (9.0-44.0) Monocytes (%) (Auto) 11.0 % (0.0-8.0) Eosinophils (%) (Auto) 3.7 % (0.0-4.0) Basophils (%) (Auto) 0.6 % (0.0-2.0) Neutrophils # (Auto) 3.9 TH/MM3 (1.8-7.7) Lymphocytes # (Auto) 1.1 TH/MM3 (1.0-4.8) Monocytes # (Auto) 0.6 TH/MM3 (0-0.9) Eosinophils # (Auto) 0.2 TH/MM3 (0-0.4) Basophils # (Auto) 0.0 TH/MM3 (0-0.2) CBC Comment DIFF FINAL Differential Comment Prothrombin Time 10.7 SEC (9.8-11.6) Prothromb Time International Ratio 1.0 RATIO Blood Urea Nitrogen 24 MG/DL (7-18) Creatinine 1.05 MG/DL (0.50-1.00) Random Glucose 87 MG/DL (74-106) Total Protein 6.3 GM/DL (6.4-8.2) Albumin 2.5 GM/DL (3.4-5.0) Calcium Level 8.8 MG/DL (8.5-10.1) Alkaline Phosphatase 107 U/L (45-117) Aspartate Amino Transf (AST/SGOT) 45 U/L (15-37) Alanine Aminotransferase (ALT/SGPT) 24 U/L (10-53) Total Bilirubin 0.2 MG/DL (0.2-1.0) Sodium Level 145 MEQ/L (136-145) Potassium Level 4.3 MEQ/L (3.5-5.1) Chloride Level 112 MEQ/L (98-107) Carbon Dioxide Level 27.6 MEQ/L (21.0-32.0) Anion Gap 5 MEQ/L (5-15) Estimat Glomerular Filtration Rate 50 ML/MIN (>89) Total Creatine Kinase 86 U/L (26-192) Troponin I LESS THAN 0.02 NG/ML Thyroid Stimulating Hormone 3rd Gen 3.630 uIU/ML (0.358-3.740) Valproic Acid (Depakene) Level 67 MCG/ML (50-100) Lactic Acid Level 0.9 mmol/L (0.4-2.0) Ammonia 21 MCMOL/L (11-32) Urine Color YELLOW (YELLW/STRAW) Urine Turbidity CLEAR (CLEAR) Urine pH 5.5 (5.0-8.5) Urine Specific [place] 1.026 (1.002-1.035) Urine Protein TRACE mg/dL (NEG-TRACE) Urine Glucose (UA) NEG mg/dL (NEG) Urine Ketones 10 mg/dL (NEG) Urine Occult Blood TRACE (NEG) Urine Nitrite NEG (NEG) Urine Bilirubin NEG (NEG) Urine Urobilinogen LESS THAN 2.0 MG/DL (LESS Urine Leukocyte Esterase NEG (NEG) Urine RBC 1 /hpf (0-3) Urine WBC 1 /hpf (0-5) Urine Squamous Epithelial Cells <1 /hpf (0-5) Urine Mucus FEW /lpf (OCC) Microscopic Urinalysis Comment CATH-CULT NOT IND Blood Gas Puncture Site LT RADIAL Blood Gas Patient Temperature 37.0 Blood Gas HCO3 24 mmol/L (22-26) Blood Gas Base Excess 0.3 mmol/L (-2-2) Blood Gas Oxygen Saturation 98 % (90-100) Arterial Blood pH 7.44 (7.380-7.420) Arterial Blood Partial Pressure CO2 36 mmHg (38-42) Arterial Blood Partial Pressure O2 251 mmHG (61-120) Arterial Blood Oxygen Content 16.8 Vol % (12.0-20.0) Arterial Blood Carboxyhemoglobin 0.9 % (0-4) Arterial Blood Methemoglobin 0.6 % (0-2) Blood Gas Hemoglobin 11.8 G/DL (12.0-16.0) Oxygen Delivery Device VENTILATOR Blood Gas Ventilator Setting AC/16/500/+5 Blood Gas Inspired Oxygen 50 % Test 07/22/17 16:38 07/22/17 20:00 07/23/17 00:32 07/23/17 04:50 Total Creatine Kinase 108 U/L (26-192) 106 U/L (26-192) Troponin I LESS THAN 0.02 NG/ML LESS THAN 0.02 NG/ML Nasal Screen MRSA (PCR) MRSA DETECTED (NOT DETECT) White Blood Count 6.8 TH/MM3 (4.0-11.0) Red Blood Count 3.76 MIL/MM3 (4.00-5.30) Hemoglobin 12.0 GM/DL (11.6-15.3) Hematocrit 36.8 % (35.0-46.0) Mean Corpuscular Volume 97.9 FL (80.0-100.0) Mean Corpuscular Hemoglobin 31.9 PG (27.0-34.0) Mean Corpuscular Hemoglobin Concent 32.6 % (32.0-36.0) Red Cell Distribution Width 14.2 % (11.6-17.2) Platelet Count 137 TH/MM3 (150-450) Mean Platelet Volume 9.8 FL (7.0-11.0) Neutrophils (%) (Auto) 59.6 % (16.0-70.0) Lymphocytes (%) (Auto) 19.7 % (9.0-44.0) Monocytes (%) (Auto) 16.8 % (0.0-8.0) Eosinophils (%) (Auto) 3.5 % (0.0-4.0) Basophils (%) (Auto) 0.4 % (0.0-2.0) Neutrophils # (Auto) 4.0 TH/MM3 (1.8-7.7) Lymphocytes # (Auto) 1.3 TH/MM3 (1.0-4.8) Monocytes # (Auto) 1.1 TH/MM3 (0-0.9) Eosinophils # (Auto) 0.2 TH/MM3 (0-0.4) Basophils # (Auto) 0.0 TH/MM3 (0-0.2) CBC Comment DIFF FINAL Differential Comment Blood Urea Nitrogen 25 MG/DL (7-18) Creatinine 0.97 MG/DL (0.50-1.00) Random Glucose 79 MG/DL (74-106) Total Protein 6.0 GM/DL (6.4-8.2) Albumin 2.4 GM/DL (3.4-5.0) Calcium Level 8.7 MG/DL (8.5-10.1) Alkaline Phosphatase 100 U/L (45-117) Aspartate Amino Transf (AST/SGOT) 45 U/L (15-37) Alanine Aminotransferase (ALT/SGPT) 34 U/L (10-53) Total Bilirubin 0.1 MG/DL (0.2-1.0) Sodium Level 147 MEQ/L (136-145) Potassium Level 3.9 MEQ/L (3.5-5.1) Chloride Level 114 MEQ/L (98-107) Carbon Dioxide Level 25.7 MEQ/L (21.0-32.0) Anion Gap 7 MEQ/L (5-15) Estimat Glomerular Filtration Rate 55 ML/MIN (>89) Result Diagram: 07/23/17 0450 07/23/17 0450 Microbiology Microbiology Date/Time Source Procedure Growth Status 07/22/17 08:11 Blood Peripheral Aerobic Blood Culture - Preliminary NO GROWTH IN 2 DAYS Resulted 07/22/17 08:11 Blood Peripheral Anaerobic Blood Culture - Preliminary NO GROWTH IN 2 DAYS Resulted 07/22/17 08:06 Blood Peripheral Aerobic Blood Culture - Preliminary NO GROWTH IN 2 DAYS Resulted 07/22/17 08:06 Blood Peripheral Anaerobic Blood Culture - Preliminary NO GROWTH IN 2 DAYS Resulted Procedures * 07/22/17 -endotracheal intubation . Assessment and Plan Disease Oriented Problem List: (1) Respiratory failure (2) Metabolic encephalopathy (3) Chronic kidney disease, stage III (moderate) (4) Paroxysmal atrial fibrillation (5) Alzheimer's dementia (6) Hypothyroid Symptom Scale: (1) Dyspnea 0-10 Scale: Unable to quantify (2) Encephalopathy 0-10 Scale: Unable to quantify Pertinent Non-Medical Issues Psychosocial: Patient has lived in nursing facility since April 2016, prior to that lived at home with her . Per prior palliative interaction: Patient is originally from [facility]. She met her when she was young teenager at the [facility]. Together they had 4 children, 3 girls and 1 boy. They lived "all over the place"per the patient's . Mrs. Guzman was a "[id number] mom." Marvin and Piedad Gustafson been for approximately 62 years. They moved to [place] in 1997 and enjoyed spending time with their friends-most of whom were childhood friends . Spiritual: [employer] Legal:Patient currently intubated on mechanical vent. Underlying history of Alzheimer's. Unable to make her own decisions, healthcare surrogate names Santos as primary surrogate with daughter Liberty as alternative. Ethical issues impacting care: No ethical issues identified. . Important Contacts and healthcare surrogate Marvin Gustafson [phone] // [phone] . Prognosis Patient diagnosed with dementia approximately 7 years ago. Has continued to have expected progression of disease. She has had poor appetite, and now requires full care for ADLs and is primarily bed to wheelchair bound. longterm resident. She has had several recent hospital visits for UTI, seizure. Though current episode may stabilize and resolve, Overall prognosis poor given progression of Alzheimer dementia. Appropriate for hospice if goals compatible. . Code Status: Full Code Plan * Legal decision maker:Patient currently intubated on mechanical vent. Underlying history of Alzheimer's. Unable to make her own decisions, healthcare surrogate names Marvin as primary surrogate with daughter Liberty as alternative. * Goals: Family electing to continue aggressive management to include FULL code , allow a few more days to reevaluate patient's clinical condition. Family may consider transition to comfort-directed care should patient's clinical condition does not improve or continues to worsen. * CODE STATUS: Full code * SYMPTOMS: --Encephalopathy/AMS- with reported nonresponsiveness, increased lethargy following Depakote administration. Underlying history of advanced Alzheimer's dementia. CT brain negative for acute process. Recent new diagnosis of seizure, previously followed by neurology seizures felt possibly secondary to UTI, Alzheimer's dementia. Neurology following. Most recent EEG with persistent moderate to severe encephalopathy. --Dyspnea-emergently intubated for airway protection/apnea. Did not tolerate CPAP this morning. * Case discussed with bedside JOSEMANUEL Mayer. * Palliative care will continue to follow during hospital course as condition evolves, to assist patient/decision-maker with understanding of medical conditions, weighing benefits/burdens of treatment options, for clarification of goals of treatment. Additionally will assist with any symptoms of palliative concern . Time Spent Total Floor Time (mins): 27 (Total time to include review medical records, physical exam, telephone conversation with patient's , case discussion with bedside JOSEMANUEL Mayer.) >50% Counseling/Coord of Care: Yes Attestation To help prompt me to consider important information that might be impacting today's encounter and assessment, information from prior notes written by myself or my colleagues may have been "brought forward" into today's note. My signature on this note, however, is an attestation that I personally performed the exam, history, and/or decision-making noted today, and, unless otherwise indicated, the interactions with patient, family, and staff as well as the review of records all occurred today. I also attest that the listed assessment and stated plan reflect my best clinical judgment today based on the combination of historical information, prior notes, and today's exam/ interactions. When time spent is documented, it refers only to time spent today by the signer, or if indicated, combined time spent today by collaborating physician/nurse practitioner. Margie Santamaria Jul 24, 2017 15:49
--- NOTE | 2017-07-24 16:16 | HHI.CCPN ---
Subjective Remarks/Hospital Course 07/22: 82-year-old female with a medical history significant for advanced Alzheimer's dementia who was been in [facility] for 4 years was recently discharged after being admitted with altered mental status seizures and UTI. She was initiated on Keppra and Depakote after being evaluated by Dr. Kay at that time. She was also started on ciprofloxacin and was evaluated by ID for a UTI. Since her discharge patient developed worsening neurologic status yesterday with question of obtundation. There was a question of her receiving Depakote injection last night following which her neurologic status continued to worsen hence she was brought to the ER by [facility]. Patient was not protecting her airway per ER physician with some gurgling sounds on arrival hence was intubated for airway protection and placed on mechanical ventilation. Head CT done in the ER was negative for any intracranial hemorrhage. Valproate levels were in the upper end of the therapeutic range. Patient was sedated with propofol following intubation. She was accepted for admission by critical care medicine service. When I evaluated the patient she was sedated with propofol, orally intubated on mechanical ventilation. History was obtained by reviewing records and discussion with Dr. Goss as family was not available at the time of my evaluation. 07/23: Remains encephalopathic off sedation, orally intubated on mechanical ventilation. EEG done yesterday showed burst suppression. 07/24: Remains encephalopathic off sedation. Orally intubated on mechanical ventilation Objective Vital Signs Date Time Temp Pulse Resp B/P (MAP) Pulse Ox O2 Delivery O2 Flow Rate FiO2 07/24/17 15:02 100 35 07/24/17 14:00 65 07/24/17 12:00 99.3 13 121/57 (78) 07/22/17 18:00 Ventilator 2.00 Intake and Output 07/24/17 07/24/17 07/25/17 08:00 16:00 00:00 Intake Total 821 ml 1000 ml Output Total 450 ml Balance 371 ml 1000 ml Result Diagram: 07/23/1744907/23/17449 Imaging Last Impressions Head CT 07/22/17744 Signed Impressions: Service Date/Time: Saturday, July 22, 2017 08:26 - CONCLUSION: 1. Atrophy. 2. No acute intracranial abnormality. Martin Olivarez Jr., MD Chest X-Ray 07/22/1765 Signed Impressions: Service Date/Time: Saturday, July 22, 2017 08:15 - CONCLUSION: No acute disease. Martin Olivarez Jr., MD Objective Remarks HEENT/ Neuro: Sedated/encephalopathic, orally intubated, Pallor present, no icterus, tongue/ mucosa moist. Neck: No JVD Chest/Pulm: on mech vent, good air entry bilaterally, no wheezing or crackles CVS: S1-S2 regular, no murmur GI/abdomen: soft, nontender, bowel sounds sluggish Extremities: warm bilaterally, no edema A/P Assessment and Plan 82-year-old female with: Worsening encephalopathy Recent seizure Advanced as I'm his dementia Recent UTI Acute respiratory failure on mechanical ventilation Plan: Neuro: Propofol held, resume if needed. Follow neuro checks per ICU protocol. Daily sedation vacation. Continue Keppra/ valproate per neurology. Dr. Perez from neurology following. EEG done on 07/22 with burst suppression. Cardiovascular: IV hydration, watch for hypotension. Continue antihypertensives Pulmonary: Continue mechanical ventilation, vent bundle, bronchodilators as needed. Daily C Pap trials and await improvement in neurologic status prior to considering extubation. GI/liver: Started tube feeds and advanced to goal as tolerated. Renal/: IV hydration, strict intake output, monitor and replete electrolites, follow BUN creatinine. ID: Continue ciprofloxacin 500 mg via OG tube twice a day for 3 more days to complete therapy for recent UTI per ID recommendation. Check sputum for Gram stain and culture. Endocrine: SSI for glycemic control as needed. Heme: Follow CBC Prophylaxis: Pepcid/ SCDs, Heparin subcutaneously Consulted palliative care to assist with deciding goals of therapy in view of her advanced Alzheimer's disease. Patient's family wishes to wait for a few days to see if patient improves prior to making any decisions regarding CODE STATUS and de-escalation of therapy. Discussed with Cheri Saavedra from palliative care team. Prognosis appears extremely poor. Condition critical. Time spent on critical care excluding procedures 40 minutes Javi Gilliam MD Jul 24, 2017 16:16
[2017-07-25] VITALS (20 sets, daily range): BP systolic 104–134; BP diastolic 51–65; PULSE 65–78; RESP 12–20; TEMP 98.9–101.1; O2SAT 98–100
[2017-07-25] MEDS: RESP: ALBUTEROL 2.5 MG/IPRATROPIUM 0.5 MG NEB (SCH) NEB ×4 (03:35→19:27)
[2017-07-25] MEDS: CHLORHEXIDINE GLUCONATE 2 % 1 PACK (2 CLOTHS) TOP SCH (04:00)
[2017-07-25 04:24] LABS: AUTOMATED NEUTROPHIL # 5.8 TH/MM3 (1.8-7.7); BASOPHIL % 0.3 % (0.0-2.0); EOSINOPHIL # 0.2 TH/MM3 (0-0.4); HEMATOCRIT 29.9 % (35.0-46.0); HEMO FLAGS DIFF FINAL; LYMPH % 9.5 % (9.0-44.0); LYMPHOCYTE # 0.7 TH/MM3 (1.0-4.8); MEAN CELL VOLUME 96.6 FL (80.0-100.0); MEAN CORPUSCULAR HEMOGLOBIN 32.7 PG (27.0-34.0); MEAN CORPUSCULAR HGB CONC 33.8 % (32.0-36.0); MONO % 10.7 % (0.0-8.0); NEUT % 76.5 % (16.0-70.0); PLATELET COUNT 147 TH/MM3 (150-450); RED CELL DISTRIBUTION WIDTH 13.9 % (11.6-17.2); WHITE BLOOD COUNT 7.6 TH/MM3 (4.0-11.0)
[2017-07-25] MEDS: ACETAMINOPHEN 325 MG TAB PO PRN ×2 (04:25→16:24)
[2017-07-25] MEDS: LEVOTHYROXINE SODIUM 100 MCG TAB PO SCH (04:25)
[2017-07-25 04:58] LABS: ALKALINE PHOSPHATASE 89 U/L (45-117); ALT (GPT) 21 U/L (10-53); ANION GAP 4 MEQ/L (5-15); AST (GOT) 31 U/L (15-37); BICARBONATE 30.3 MEQ/L (21.0-32.0); BLOOD UREA NITROGEN 20 MG/DL (7-18); CHLORIDE 114 MEQ/L (98-107); GLOMERULAR FILTRATION RATE 77 ML/MIN (>89); SODIUM (NA) 148 MEQ/L (136-145); TOTAL BILIRUBIN ADULT 0.2 MG/DL (0.2-1.0)
[2017-07-25] MEDS: VALPROIC ACID SYRUP 250 MG/5 ML UDC OG-TUBE SCH ×2 (08:33→21:02)
[2017-07-25] MEDS: POTASSIUM CHLORIDE 10 MEQ CAP PO SCH (08:33)
[2017-07-25] MEDS: ASPIRIN 81 MG CHEW TAB CHEW SCH (08:34)
[2017-07-25] MEDS: HEPARIN SODIUM - SQ 10,000 UNITS/ML VIAL SQ SCH ×2 (08:34→21:02)
[2017-07-25] MEDS: CHLORHEXIDINE 0.12% (ORAL KIT) 15 ML CUP MT SCH ×2 (08:34→21:02)
[2017-07-25] MEDS: METOPROLOL TARTRATE 50 MG TAB PO SCH ×2 (08:34→21:01)
[2017-07-25] MEDS: levETIRAcetam 500 MG TAB PO SCH ×2 (08:34→21:01)
[2017-07-25] MEDS: FAMOTIDINE 20 MG TAB TUBE SCH ×2 (08:34→21:01)
[2017-07-25] MEDS: CIPROFLOXACIN 500 MG TAB PO SCH ×2 (08:34→21:01)
[2017-07-25] MEDS: SODIUM CHLORIDE 0.9% FLUSH 10 ML FLUSH IV FLUSH SCH ×2 (08:35→21:02)
--- NOTE | 2017-07-25 08:57 | HHI.CCPN ---
Subjective Remarks/Hospital Course 07/22: 82-year-old female with a medical history significant for advanced Alzheimer's dementia who was been in skilled nursing for 4 years was recently discharged after being admitted with altered mental status seizures and UTI. She was initiated on Keppra and Depakote after being evaluated by Dr. Kay at that time. She was also started on ciprofloxacin and was evaluated by ID for a UTI. Since her discharge patient developed worsening neurologic status yesterday with question of obtundation. There was a question of her receiving Depakote injection last night following which her neurologic status continued to worsen hence she was brought to the ER by [facility]. Patient was not protecting her airway per ER physician with some gurgling sounds on arrival hence was intubated for airway protection and placed on mechanical ventilation. Head CT done in the ER was negative for any intracranial hemorrhage. Valproate levels were in the upper end of the therapeutic range. Patient was sedated with propofol following intubation. She was accepted for admission by critical care medicine service. When I evaluated the patient she was sedated with propofol, orally intubated on mechanical ventilation. History was obtained by reviewing records and discussion with Dr. Goss as family was not available at the time of my evaluation. 07/23: Remains encephalopathic off sedation, orally intubated on mechanical ventilation. EEG done yesterday showed burst suppression. 07/24: Remains encephalopathic off sedation. Orally intubated on mechanical ventilation 07/25: No improvement in neurologic status. Remains encephalopathic, no response to painful stimuli. Remains orally intubated on mechanical ventilation. Objective Vital Signs Date Time Temp Pulse Resp B/P (MAP) Pulse Ox O2 Delivery O2 Flow Rate FiO2 07/25/17 07:35 100 35 07/25/17 06:00 78 07/25/17 04:00 99.5 18 134/60 (84) 07/22/17 18:00 Ventilator 2.00 Intake and Output 07/25/17 07/25/17 07/26/17 08:00 16:00 00:00 Intake Total 1538 ml Output Total 450 ml Balance 1088 ml Result Diagram: 07/25/17 0350 07/25/17 0350 Imaging Last Impressions Head CT 07/22/17 6736 Signed Impressions: Service Date/Time: Saturday, July 22, 2017 08:26 - CONCLUSION: 1. Atrophy. 2. No acute intracranial abnormality. Martin Olivarez Jr., MD Chest X-Ray 07/22/17 0745 Signed Impressions: Service Date/Time: Saturday, July 22, 2017 08:15 - CONCLUSION: No acute disease. Martin Olivarez Jr., MD Objective Remarks HEENT/ Neuro: encephalopathic/ comatose, orally intubated, Pallor present, no icterus, tongue/ mucosa moist. Neck: No JVD Chest/Pulm: on mech vent, good air entry bilaterally, no wheezing or crackles CVS: S1-S2 regular, no murmur GI/abdomen: soft, nontender, bowel sounds sluggish Extremities: warm bilaterally, no edema A/P Assessment and Plan 82-year-old female with: Worsening encephalopathy Recent seizure Advanced as I'm his dementia Recent UTI Acute respiratory failure on mechanical ventilation Plan: Neuro: Propofol held, resume if needed. Follow neuro checks per ICU protocol. Daily sedation vacation. Continue Keppra/ valproate per neurology. Dr. Perez from neurology following. EEG done on 07/22 with burst suppression. Cardiovascular: IV hydration, watch for hypotension. Continue antihypertensives Pulmonary: Continue mechanical ventilation, vent bundle, bronchodilators as needed. Daily C Pap trials and await improvement in neurologic status prior to considering extubation. GI/liver: Started tube feeds and advanced to goal as tolerated. Renal/: IV hydration, strict intake output, monitor and replete electrolites, follow BUN creatinine. ID: Continue ciprofloxacin 500 mg via OG tube twice a day for 3 more days to complete therapy for recent UTI per ID recommendation. Ordered sputum for Gram stain and culture, results still pending. Endocrine: SSI for glycemic control as needed. Heme: Follow CBC Prophylaxis: Pepcid/ SCDs, Heparin subcutaneously Consulted palliative care to assist with deciding goals of therapy in view of her advanced Alzheimer's disease. Patient's family wishes to wait for a few days to see if patient improves prior to making any decisions regarding CODE STATUS and de-escalation of therapy. Discussed with Cheri Saavedra from palliative care team. Prognosis appears extremely poor. Condition critical. Time spent on critical care excluding procedures 40 minutes Javi Gilliam MD Jul 25, 2017 08:57
[2017-07-26] VITALS (20 sets, daily range): BP systolic 88–141; BP diastolic 47–63; PULSE 62–79; RESP 12–18; TEMP 98.7–101; O2SAT 97–100
[2017-07-26] MEDS: RESP: ALBUTEROL 2.5 MG/IPRATROPIUM 0.5 MG NEB (SCH) NEB ×3 (03:16→15:01)
[2017-07-26] MEDS: CHLORHEXIDINE GLUCONATE 2 % 1 PACK (2 CLOTHS) TOP SCH (03:42)
[2017-07-26] MEDS: LEVOTHYROXINE SODIUM 100 MCG TAB PO SCH (05:50)
[2017-07-26] MEDS: ACETAMINOPHEN 325 MG TAB PO PRN (08:19)
[2017-07-26] MEDS: CHLORHEXIDINE 0.12% (ORAL KIT) 15 ML CUP MT SCH ×2 (08:19→21:20)
[2017-07-26] MEDS: POTASSIUM CHLORIDE 10 MEQ CAP PO SCH (08:20)
[2017-07-26] MEDS: VALPROIC ACID SYRUP 250 MG/5 ML UDC OG-TUBE SCH ×2 (08:20→21:19)
[2017-07-26] MEDS: FAMOTIDINE 20 MG TAB TUBE SCH ×2 (08:20→21:19)
[2017-07-26] MEDS: HEPARIN SODIUM - SQ 10,000 UNITS/ML VIAL SQ SCH ×2 (08:20→21:18)
[2017-07-26] MEDS: CIPROFLOXACIN 500 MG TAB PO SCH (08:20)
[2017-07-26] MEDS: METOPROLOL TARTRATE 50 MG TAB PO SCH ×2 (08:20→21:19)
[2017-07-26] MEDS: levETIRAcetam 500 MG TAB PO SCH ×2 (08:20→21:19)
[2017-07-26] MEDS: ASPIRIN 81 MG CHEW TAB CHEW SCH (08:20)
[2017-07-26] MEDS: SODIUM CHLORIDE 0.9% FLUSH 10 ML FLUSH IV FLUSH SCH ×2 (08:21→21:19)
[2017-07-26] MEDS: POLYETHYLENE GLYCOL 17 GM PKG PO SCH ×2 (10:00→21:18)
[2017-07-26] MEDS ORDERED: POLYETHYLENE GLYCOL 17 GM PKG PO SCH (10:00)
--- NOTE | 2017-07-26 10:21 | HHI.CCPN ---
Subjective Remarks/Hospital Course 07/22: 82-year-old female with a medical history significant for advanced Alzheimer's dementia who was been in jail for 4 years was recently discharged after being admitted with altered mental status seizures and UTI. She was initiated on Keppra and Depakote after being evaluated by Dr. Kay at that time. She was also started on ciprofloxacin and was evaluated by ID for a UTI. Since her discharge patient developed worsening neurologic status yesterday with question of obtundation. There was a question of her receiving Depakote injection last night following which her neurologic status continued to worsen hence she was brought to the ER by [facility]. Patient was not protecting her airway per ER physician with some gurgling sounds on arrival hence was intubated for airway protection and placed on mechanical ventilation. Head CT done in the ER was negative for any intracranial hemorrhage. Valproate levels were in the upper end of the therapeutic range. Patient was sedated with propofol following intubation. She was accepted for admission by critical care medicine service. When I evaluated the patient she was sedated with propofol, orally intubated on mechanical ventilation. History was obtained by reviewing records and discussion with Dr. Goss as family was not available at the time of my evaluation. 07/23: Remains encephalopathic off sedation, orally intubated on mechanical ventilation. EEG done yesterday showed burst suppression. 07/24: Remains encephalopathic off sedation. Orally intubated on mechanical ventilation 07/25: No improvement in neurologic status. Remains encephalopathic, no response to painful stimuli. Remains orally intubated on mechanical ventilation. 07/26: Remains encephalopathic, orally intubated on mechanical ventilation. Tolerating tube feeds. No improvement in neurologic status. Objective Vital Signs Date Time Temp Pulse Resp B/P (MAP) Pulse Ox O2 Delivery O2 Flow Rate FiO2 07/26/17 08:25 98 35 07/26/17 08:00 75 07/26/17 08:00 101.0 14 131/63 (85) 07/22/17 18:00 Ventilator 2.00 Intake and Output 07/26/17 07/26/17 07/27/17 08:00 16:00 00:00 Intake Total 987 ml Output Total 375 ml Balance 612 ml Result Diagram: 07/25/17 0350 07/25/17 0350 Imaging Last Impressions Head CT 11/744 Signed Impressions: Service Date/Time: Saturday, July 22, 2017 08:26 - CONCLUSION: 1. Atrophy. 2. No acute intracranial abnormality. Martin Olivarez Jr., MD Chest X-Ray 07/22/17744 Signed Impressions: Service Date/Time: Saturday, July 22, 2017 08:15 - CONCLUSION: No acute disease. Martin Olivarez Jr., MD Objective Remarks HEENT/ Neuro: encephalopathic/ comatose, orally intubated, Pallor present, no icterus, tongue/ mucosa moist. Neck: No JVD Chest/Pulm: on mech vent, good air entry bilaterally, no wheezing or crackles CVS: S1-S2 regular, no murmur GI/abdomen: soft, nontender, bowel sounds sluggish Extremities: warm bilaterally, no edema A/P Assessment and Plan 82-year-old female with: Worsening encephalopathy Recent seizure Advanced as I'm his dementia Recent UTI Acute respiratory failure on mechanical ventilation Plan: Neuro: Propofol held, resume if needed. Follow neuro checks per ICU protocol. Daily sedation vacation. Continue Keppra/ valproate per neurology. Dr. Perez from neurology following. EEG done on 07/22 with burst suppression. Cardiovascular: IV hydration, watch for hypotension. Continue antihypertensives Pulmonary: Continue mechanical ventilation, vent bundle, bronchodilators as needed. Daily C Pap trials and await improvement in neurologic status prior to considering extubation. GI/liver: Started tube feeds and advanced to goal as tolerated. Renal/: IV hydration, strict intake output, monitor and replete electrolites, follow BUN creatinine. ID: Ciprofloxacin 500 mg via OG tube twice a day stopped 07/26 as pt. completed therapy for recent UTI per ID recommendation. Ordered sputum for Gram stain and culture on admission, results still pending. Endocrine: SSI for glycemic control as needed. Heme: Follow CBC Prophylaxis: Pepcid/ SCDs, Heparin subcutaneously Consulted palliative care to assist with deciding goals of therapy in view of her advanced Alzheimer's disease. Patient's family wishes to wait for a few days to see if patient improves prior to making any decisions regarding CODE STATUS and de-escalation of therapy. Discussed with Cheri Saavedra from palliative care team. Prognosis appears extremely poor. Condition critical with patient in acute respiratory failure with severe encephalopathy, recent seizures and advanced Alzheimer's disease. Time spent on critical care excluding procedures 30 minutes Javi Gilliam MD Jul 26, 2017 10:21
[2017-07-26] MEDS ORDERED: SENNOSIDES 8.6 MG TAB PO PRN (10:30)
[2017-07-26] MEDS ORDERED: MAGNESIUM HYDROXIDE SUSP 30 ML CUP PO PRN (10:30)
[2017-07-26] MEDS ORDERED: BISACODYL 10 MG SUPP RECTAL PRN (10:30)
[2017-07-26] MEDS ORDERED: LACTULOSE SYRUP 20 GM/30 ML CUP PO PRN (10:30)
[2017-07-26] MEDS: DOCUSATE SODIUM 50 MG/SENNA 8.6 MG TAB PO SCH (21:19)
[2017-07-27] VITALS (18 sets, daily range): BP systolic 106–139; BP diastolic 49–65; PULSE 64–77; RESP 12–21; TEMP 99.1–101.4; O2SAT 93–100
[2017-07-27] MEDS: CHLORHEXIDINE GLUCONATE 2 % 1 PACK (2 CLOTHS) TOP SCH (04:00)
[2017-07-27 05:54] LABS: AUTOMATED NEUTROPHIL # 5.8 TH/MM3 (1.8-7.7); BASOPHIL % 0.3 % (0.0-2.0); EOSINOPHIL # 0.2 TH/MM3 (0-0.4); EOSINOPHIL % 2.4 % (0.0-4.0); HEMO FLAGS DIFF FINAL; LYMPH % 10.7 % (9.0-44.0); LYMPHOCYTE # 0.9 TH/MM3 (1.0-4.8); MEAN CORPUSCULAR HEMOGLOBIN 31.7 PG (27.0-34.0); MEAN CORPUSCULAR HGB CONC 32.7 % (32.0-36.0); NEUT % 72.6 % (16.0-70.0); PLATELET COUNT 191 TH/MM3 (150-450); RED BLOOD COUNT 3.19 MIL/MM3 (4.00-5.30); RED CELL DISTRIBUTION WIDTH 13.8 % (11.6-17.2)
[2017-07-27] MEDS: LEVOTHYROXINE SODIUM 100 MCG TAB PO SCH (06:18)
[2017-07-27 06:32] LABS: ALKALINE PHOSPHATASE 128 U/L (45-117); ALT (GPT) 66 U/L (10-53); ANION GAP 5 MEQ/L (5-15); AST (GOT) 117 U/L (15-37); BICARBONATE 30.9 MEQ/L (21.0-32.0); BLOOD UREA NITROGEN 27 MG/DL (7-18); CHLORIDE 109 MEQ/L (98-107); GLOMERULAR FILTRATION RATE 57 ML/MIN (>89); POTASSIUM 4.1 MEQ/L (3.5-5.1); SODIUM (NA) 145 MEQ/L (136-145); TOTAL BILIRUBIN ADULT 0.2 MG/DL (0.2-1.0)
--- NOTE | 2017-07-27 08:42 | HHI.CCPN ---
Subjective Remarks/Hospital Course 07/22: 82-year-old female with a medical history significant for advanced Alzheimer's dementia who was been in long term for 4 years was recently discharged after being admitted with altered mental status seizures and UTI. She was initiated on Keppra and Depakote after being evaluated by Dr. Kay at that time. She was also started on ciprofloxacin and was evaluated by ID for a UTI. Since her discharge patient developed worsening neurologic status yesterday with question of obtundation. There was a question of her receiving Depakote injection last night following which her neurologic status continued to worsen hence she was brought to the ER by [facility]. Patient was not protecting her airway per ER physician with some gurgling sounds on arrival hence was intubated for airway protection and placed on mechanical ventilation. Head CT done in the ER was negative for any intracranial hemorrhage. Valproate levels were in the upper end of the therapeutic range. Patient was sedated with propofol following intubation. She was accepted for admission by critical care medicine service. When I evaluated the patient she was sedated with propofol, orally intubated on mechanical ventilation. History was obtained by reviewing records and discussion with Dr. Goss as family was not available at the time of my evaluation. 07/23: Remains encephalopathic off sedation, orally intubated on mechanical ventilation. EEG done yesterday showed burst suppression. 07/24: Remains encephalopathic off sedation. Orally intubated on mechanical ventilation 07/25: No improvement in neurologic status. Remains encephalopathic, no response to painful stimuli. Remains orally intubated on mechanical ventilation. 07/26: Remains encephalopathic, orally intubated on mechanical ventilation. Tolerating tube feeds. No improvement in neurologic status. 07/27 No events overnight. Remains intubated, on no sedation. T: 100.8 last night. Objective Vital Signs Date Time Temp Pulse Resp B/P (MAP) Pulse Ox O2 Delivery O2 Flow Rate FiO2 07/27/17 06:00 72 07/27/17 04:00 35 07/27/17 04:00 99.8 12 106/53 (70) 98 Intake and Output 07/27/17 07/27/17 07/28/17 08:00 16:00 00:00 Intake Total 1028 ml Output Total 250 ml Balance 778 ml Result Diagram: 07/27/17 0535 07/27/17 0535 Other Results Laboratory Tests Test 07/27/17 05:35 White Blood Count 8.0 TH/MM3 Red Blood Count 3.19 MIL/MM3 Hemoglobin 10.1 GM/DL Hematocrit 31.0 % Mean Corpuscular Volume 97.0 FL Mean Corpuscular Hemoglobin 31.7 PG Mean Corpuscular Hemoglobin Concent 32.7 % Red Cell Distribution Width 13.8 % Platelet Count 191 TH/MM3 Mean Platelet Volume 9.3 FL Neutrophils (%) (Auto) 72.6 % Lymphocytes (%) (Auto) 10.7 % Monocytes (%) (Auto) 14.0 % Eosinophils (%) (Auto) 2.4 % Basophils (%) (Auto) 0.3 % Neutrophils # (Auto) 5.8 TH/MM3 Lymphocytes # (Auto) 0.9 TH/MM3 Monocytes # (Auto) 1.1 TH/MM3 Eosinophils # (Auto) 0.2 TH/MM3 Basophils # (Auto) 0.0 TH/MM3 CBC Comment DIFF FINAL Differential Comment Blood Urea Nitrogen 27 MG/DL Creatinine 0.95 MG/DL Random Glucose 135 MG/DL Total Protein 6.0 GM/DL Albumin 1.8 GM/DL Calcium Level 8.4 MG/DL Alkaline Phosphatase 128 U/L Aspartate Amino Transf (AST/SGOT) 117 U/L Alanine Aminotransferase (ALT/SGPT) 66 U/L Total Bilirubin 0.2 MG/DL Sodium Level 145 MEQ/L Potassium Level 4.1 MEQ/L Chloride Level 109 MEQ/L Carbon Dioxide Level 30.9 MEQ/L Anion Gap 5 MEQ/L Estimat Glomerular Filtration Rate 57 ML/MIN Imaging Last Impressions Head CT 07/22/17744 Signed Impressions: Service Date/Time: Saturday, July 22, 2017 08:26 - CONCLUSION: 1. Atrophy. 2. No acute intracranial abnormality. Martin Olivarez Jr., MD Chest X-Ray 07/22/1725 Signed Impressions: Service Date/Time: Saturday, July 22, 2017 08:15 - CONCLUSION: No acute disease. Martin Olivarez Jr., MD Objective Remarks HEENT/ Neuro: encephalopathic/ comatose, orally intubated, Pallor present, no icterus, tongue/ mucosa moist. Neck: No JVD Chest/Pulm: on mech vent, good air entry bilaterally, no wheezing or crackles CVS: S1-S2 regular, no murmur GI/abdomen: soft, nontender, bowel sounds sluggish Extremities: warm bilaterally, no edema A/P Assessment and Plan 82-year-old female with: Encephalopathy Recent seizure Advanced as I'm his dementia Recent UTI Acute respiratory failure on mechanical ventilation Plan: Neuro:Off sedation, continue with neuro checks per ICU protocol. Keppra/ valproate per neurology. Dr. Perez from neurology following. EEG done on 07/22 with burst suppression. EEG 07/23- Mod-severe encephalopathy CV: Monitor HR and BP keep MAP>65mmHg On Lopressor 50mg BID< ASA Pulm: Continue with vent support keep sat >92% Bronchodilators, ICU vent bundle. Continue with CPAP trials, patient is at high risk of reintubation if extubated due to her mental status. GI/liver: Continue with tube feeds- Glucerna 1.5@60ml/jr, On Pepcid for GI prophylaxis Monitor LFT's, check US liver : Monitor renal function, I/O's. electrolytes replacement per protocol. ID: Off Cipro stopped 07/26 as pt. completed therapy for recent UTI per ID recommendation. Monitor for signs of infections ( Fever, WBC) Endocrine: SSI for glycemic control as needed. On Synthroid 100mcg daily, TSH 3.6 Heme: Follow CBC Prophylaxis: Pepcid/ SCDs, Heparin subcutaneously Palliative care to assist with deciding goals of therapy in view of her advanced Alzheimer's disease. Patient's family wishes to wait for a few days to see if patient improves prior to making any decisions regarding CODE STATUS and de-escalation of therapy. Level 3 Trciia Williamson MD Jul 27, 2017 08:42
[2017-07-27] MEDS ORDERED: DEXTROSE 50% IN WATER 50 ML VIAL(D50) IV PUSH PRN (08:45)
[2017-07-27] MEDS ORDERED: GLUCAGON 1 MG/ML VIAL OTHER PRN (08:45)
[2017-07-27] MEDS: INSULIN NovoLIN REGULAR SUPPLEMENTAL SCALE SQ SCH ×3 (09:00→19:55)
[2017-07-27] MEDS: HEPARIN SODIUM - SQ 10,000 UNITS/ML VIAL SQ SCH ×2 (09:02→19:54)
[2017-07-27] MEDS: FAMOTIDINE 20 MG TAB TUBE SCH ×2 (09:03→19:54)
[2017-07-27] MEDS: POLYETHYLENE GLYCOL 17 GM PKG PO SCH ×2 (09:03→19:55)
[2017-07-27] MEDS: levETIRAcetam 500 MG TAB PO SCH ×2 (09:03→19:54)
[2017-07-27] MEDS: CHLORHEXIDINE 0.12% (ORAL KIT) 15 ML CUP MT SCH ×2 (09:03→19:54)
[2017-07-27] MEDS: METOPROLOL TARTRATE 50 MG TAB PO SCH ×2 (09:04→19:54)
[2017-07-27] MEDS: SODIUM CHLORIDE 0.9% FLUSH 10 ML FLUSH IV FLUSH SCH ×2 (09:04→19:54)
[2017-07-27] MEDS: DOCUSATE SODIUM 50 MG/SENNA 8.6 MG TAB PO SCH ×2 (09:04→19:55)
[2017-07-27] MEDS: ASPIRIN 81 MG CHEW TAB CHEW SCH (09:04)
[2017-07-27] MEDS: VALPROIC ACID SYRUP 250 MG/5 ML UDC OG-TUBE SCH ×2 (09:04→19:53)
[2017-07-27] MEDS: ACETAMINOPHEN 325 MG TAB PO PRN (09:05)
--- NOTE | 2017-07-27 12:28 | HHI.HCPN ---
Reason for visit a. To assist with evaluation and management of symptoms including: Altered mental status b. To assist medical decision maker(s) with: better understanding of current medical conditions; weighing benefits/burdens of medical treatment options; making medical treatment decisions. Subjective/Interval History Pt seen today to follow up on comfort, goals. Patient seen in medical ICU. Remains on mechanical ventilation, has been off of sedation since last ( 4 days). Nsg reports no changes in neuro assessment. BC from 07/22 no growth x 5 days . Pt having fevers, this am up to 101.4. Cpap trials daily, not able to medically extubate 2/2 mental status. Hemodynamically stable.CBC unremarkable. LFTs trending up, liver u/s ordered- pending. Tolerating TF. No family at bedside during my exam, lab completing lab draw. Pt minimally responsive to my exam-- no eye opening to pain or stimuli. Slight withdraw LUE to pain. No withdrawal RUE. + withdrawal BLE to pain. Case discussed with JOSEMANUEL Alvarado. Call to . VM left, also requested ns call me when family arrives. . Family/friend interactions 1330 UPDATE: Received call from patient who is arrived to hospital to visit patient. Met with in consultation room, explore hospital course, treatments in place, current clinical/neurological assessments. Exploration of underlying dementia status and prognosis. Review of likely trajectory going forward and that if patient can be pulled through current episode she would likely require prolonged ICU course and hospitalization and not likely to return to her fairly interactive baseline a few weeks ago. He endorses that per patient wishes she would not want prolonged artificial measures without moravian of prior level of function and cognitive status, and that she would want no further artificial measures. He requests DNR status. He requests no further escalation of invasive treatments such as no addition of pressors for hemodynamic instability. Review of withdrawal process, anticipatory guidance, as well as hospice role and services. He endorses that he wishes to talk further with his 2 daughters and that they will want to withdraw life support in the coming days as consistent with patient wishes, possibly towards the end of the week as there are extended family and friends that would want to visit patient. He would want official court interpreter support at time of withdrawal though does not want chain carrier visit today. Advance Directives Living Will: Copy in medical record Health Care Surrogate: Copy in medical record Durable Power of Training Development Specialist: Copy in medical record Advance Directive Specifics Date completed: October 2012 Health Care Surrogate(s): Names primary Marvin, alternate daughter Liberty . Documented care wishes: Living will directs in standard verbiage that in the presence of terminal, irreversible or irrecoverable condition that artificial measures be withheld including fluids etc. and that pt be permitted to naturally with only administration of treatments necessary to comfort or alleviate pain. . Significant change in goals: 07/27 patient elects DNR, as well as no further escalation of treatments , would want to withdraw life support in the coming days, transitioned to comfort focus . Objective Vital Signs Date Time Temp Pulse Resp B/P (MAP) Pulse Ox O2 Delivery O2 Flow Rate FiO2 07/27/17 11:55 98 35 07/27/17 10:00 65 07/27/17 09:47 13 07/27/17 08:41 99 35 07/27/17 08:00 35 07/27/17 08:00 101.4 74 21 139/65 (89) 95 07/27/17 08:00 74 07/27/17 06:00 72 07/27/17 04:00 68 07/27/17 04:00 35 07/27/17 04:00 99.8 68 12 106/53 (70) 98 07/27/17 03:07 99 35 07/27/17 02:00 67 07/27/17 00:00 35 07/27/17 00:00 99.8 70 21 121/57 (78) 98 07/27/17 00:00 70 07/26/17 23:53 98 35 07/26/17 22:00 76 07/26/17 20:00 78 07/26/17 20:00 100.8 78 16 121/56 (77) 100 07/26/17 20:00 35 07/26/17 19:24 100 35 07/26/17 18:00 79 07/26/17 16:00 35 07/26/17 16:00 99.4 69 16 120/57 (78) 100 07/26/17 16:00 69 07/26/17 15:04 100 35 07/26/17 14:00 65 07/26/17 13:00 65 13 116/58 (77) 100 Intake & Output 07/27/17 07/27/17 07:00 19:00 Intake Total 1028 ml Output Total 250 ml Balance 778 ml Tube Feeding 828 ml Other 200 ml Output Urine Total 250 ml # Bowel Movements 0 Physical Exam CONSTITUTIONAL/GENERAL: This is an adequately nourished patient, on mechanical vent. TUBES/LINES/DRAINS: PIV BUE, morales catheter, ETT, OGT SKIN: No jaundice, rashes, or lesions. Several areas of ecchymosis bilateral arms. Skin warm, ice bags in place for fever. EYES: Pupils 3 mm, +reaction to light. No scleral icterus. No injection or drainage. Fundi not examined. CARDIOVASCULAR: Regular rate and rhythm without murmur. Peripheral pulses symmetric. Slight edema to upper extremities. RESPIRATORY/CHEST: Symmetric, unlabored respirations via ET tube on mechanical vent. Clear , with scattered rhonchi rt lower. Breath sounds equal bilaterally. + Copious clear oral secretions around ET tube. GASTROINTESTINAL: Abdomen soft, no apparent tenderness though patient is minimally responsive, nondistended. No hepato-splenomegaly, or palpable masses. Bowel sounds present.TF infusing to OGT GENITOURINARY: Without palpable bladder distension. Morales catheter in place clear dark yellow urine. NEUROLOGICAL: Off sedation for past several days. No eye opening to my exam. Withdrawal to pain LUE. No response to pain RUE. NO response to central pain. Withdraws BLE. + cough on mech vent PSYCHIATRIC: no apparent anxiety- limited exam due to condition . Diagnostic Tests Laboratory Laboratory Tests Test 07/25/17 03:50 07/27/17 05:35 07/27/17 10:00 White Blood Count 7.6 TH/MM3 (4.0-11.0) 8.0 TH/MM3 (4.0-11.0) Red Blood Count 3.10 MIL/MM3 (4.00-5.30) 3.19 MIL/MM3 (4.00-5.30) Hemoglobin 10.1 GM/DL (11.6-15.3) 10.1 GM/DL (11.6-15.3) Hematocrit 29.9 % (35.0-46.0) 31.0 % (35.0-46.0) Mean Corpuscular Volume 96.6 FL (80.0-100.0) 97.0 FL (80.0-100.0) Mean Corpuscular Hemoglobin 32.7 PG (27.0-34.0) 31.7 PG (27.0-34.0) Mean Corpuscular Hemoglobin Concent 33.8 % (32.0-36.0) 32.7 % (32.0-36.0) Red Cell Distribution Width 13.9 % (11.6-17.2) 13.8 % (11.6-17.2) Platelet Count 147 TH/MM3 (150-450) 191 TH/MM3 (150-450) Mean Platelet Volume 9.5 FL (7.0-11.0) 9.3 FL (7.0-11.0) Neutrophils (%) (Auto) 76.5 % (16.0-70.0) 72.6 % (16.0-70.0) Lymphocytes (%) (Auto) 9.5 % (9.0-44.0) 10.7 % (9.0-44.0) Monocytes (%) (Auto) 10.7 % (0.0-8.0) 14.0 % (0.0-8.0) Eosinophils (%) (Auto) 3.0 % (0.0-4.0) 2.4 % (0.0-4.0) Basophils (%) (Auto) 0.3 % (0.0-2.0) 0.3 % (0.0-2.0) Neutrophils # (Auto) 5.8 TH/MM3 (1.8-7.7) 5.8 TH/MM3 (1.8-7.7) Lymphocytes # (Auto) 0.7 TH/MM3 (1.0-4.8) 0.9 TH/MM3 (1.0-4.8) Monocytes # (Auto) 0.8 TH/MM3 (0-0.9) 1.1 TH/MM3 (0-0.9) Eosinophils # (Auto) 0.2 TH/MM3 (0-0.4) 0.2 TH/MM3 (0-0.4) Basophils # (Auto) 0.0 TH/MM3 (0-0.2) 0.0 TH/MM3 (0-0.2) CBC Comment DIFF FINAL DIFF FINAL Differential Comment Blood Urea Nitrogen 20 MG/DL (7-18) 27 MG/DL (7-18) Creatinine 0.73 MG/DL (0.50-1.00) 0.95 MG/DL (0.50-1.00) Random Glucose 113 MG/DL (74-106) 135 MG/DL (74-106) Total Protein 5.5 GM/DL (6.4-8.2) 6.0 GM/DL (6.4-8.2) Albumin 2.0 GM/DL (3.4-5.0) 1.8 GM/DL (3.4-5.0) Calcium Level 7.8 MG/DL (8.5-10.1) 8.4 MG/DL (8.5-10.1) Alkaline Phosphatase 89 U/L (45-117) 128 U/L (45-117) Aspartate Amino Transf (AST/SGOT) 31 U/L (15-37) 117 U/L (15-37) Alanine Aminotransferase (ALT/SGPT) 21 U/L (10-53) 66 U/L (10-53) Total Bilirubin 0.2 MG/DL (0.2-1.0) 0.2 MG/DL (0.2-1.0) Sodium Level 148 MEQ/L (136-145) 145 MEQ/L (136-145) Potassium Level 4.0 MEQ/L (3.5-5.1) 4.1 MEQ/L (3.5-5.1) Chloride Level 114 MEQ/L (98-107) 109 MEQ/L (98-107) Carbon Dioxide Level 30.3 MEQ/L (21.0-32.0) 30.9 MEQ/L (21.0-32.0) Anion Gap 4 MEQ/L (5-15) 5 MEQ/L (5-15) Estimat Glomerular Filtration Rate 77 ML/MIN (>89) 57 ML/MIN (>89) Result Diagram: 07/27/17 0535 07/27/17 0535 Microbiology Microbiology Date/Time Source Procedure Growth Status 07/22/17 08:11 Blood Peripheral Aerobic Blood Culture - Final NO GROWTH IN 5 DAYS Complete 07/22/17 08:11 Blood Peripheral Anaerobic Blood Culture - Final NO GROWTH IN 5 DAYS Complete Imaging Last Impressions Head CT 07/22/17 0745 Signed Impressions: Service Date/Time: Saturday, July 22, 2017 08:26 - CONCLUSION: 1. Atrophy. 2. No acute intracranial abnormality. Martin Olivarez Jr., MD Chest X-Ray 07/22/17 0745 Signed Impressions: Service Date/Time: Saturday, July 22, 2017 08:15 - CONCLUSION: No acute disease. Martin Olivarez Jr., MD Procedures * 07/22/17 -endotracheal intubation . Assessment and Plan Disease Oriented Problem List: (1) Respiratory failure (2) Metabolic encephalopathy (3) Chronic kidney disease, stage III (moderate) (4) Paroxysmal atrial fibrillation (5) Alzheimer's dementia (6) Hypothyroid Symptom Scale: (1) Dyspnea 0-10 Scale: Unable to quantify (2) Encephalopathy 0-10 Scale: Unable to quantify Pertinent Non-Medical Issues Psychosocial: Patient has lived in nursing facility since April 2016, prior to that lived at home with her . Per prior palliative interaction: Patient is originally from [facility]. She met her when she was young teenager at the [facility]. Together they had 4 children, 3 girls and 1 boy. They lived "all over the place"per the patient's . Mrs. Guzman was a "[id number] mom." Marvin and Piedad Gustafson been for approximately 62 years. They moved to [place] in 1997 and enjoyed spending time with their friends-most of whom were childhood friends . Spiritual: Adventism sobeida Legal:Patient currently intubated on mechanical vent. Underlying history of Alzheimer's. Unable to make her own decisions, healthcare surrogate names Santos as primary surrogate with daughter Liberty as alternative. Ethical issues impacting care: No ethical issues identified. . Important Contacts and healthcare surrogate Marvin Gustafson [phone] // [phone] . Prognosis Patient diagnosed with dementia approximately 7 years ago. Has continued to have expected progression of disease. She has had poor appetite, and now requires full care for ADLs and is primarily bed to wheelchair bound. [facility] resident. She has had several recent hospital visits for UTI, seizure. Though current episode may stabilize and resolve, Overall prognosis poor given progression of Alzheimer dementia. Appropriate for hospice if goals compatible. . Code Status: No Code Plan * Legal decision maker:Patient currently intubated on mechanical vent. Underlying history of Alzheimer's. Unable to make her own decisions, healthcare surrogate names Marvin as primary surrogate with daughter Liberty as alternative. * Goals: 07/24 Family electing to continue aggressive management to include FULL code, allow a few more days to reevaluate patient's clinical condition. Family may consider transition to comfort-directed care should patient's clinical condition does not improve or continues to worsen. * 07/27 further discussion RE goals : Met with again at length, He endorses that per patient wishes she would not want prolonged artificial measures without moravian of prior level of function and cognitive status, and that she would want no further artificial measures. He requests DNR status. He requests no further escalation of invasive treatments such as no addition of pressors for hemodynamic instability. Review of withdrawal process , anticipatory guidance, as well as hospice role and services. He endorses that he wishes to talk further with his 2 daughters and that they will want to withdraw life support in the coming days as consistent with patient wishes, possibly towards the end of the week as there are extended family and friends that would want to visit patient. They would likely want hospice services 24 hours after withdrawal if patient survives. --- later called me back and requested withdrawal around 3pm Thursday07/28/17 * CODE STATUS: Elected DNR today 07/27 * SYMPTOMS: --Encephalopathy/AMS- with reported nonresponsiveness, increased lethargy following Depakote administration. Underlying history of advanced Alzheimer's dementia. CT brain negative for acute process. Recent new diagnosis of seizure, previously followed by neurology seizures felt possibly secondary to UTI, Alzheimer's dementia. Neurology following. Most recent EEG with persistent moderate to severe encephalopathy. --Dyspnea-emergently intubated for airway protection/apnea. daily cpap, unable to medically extubate 2/2 mental status. * discussed with bedside RN * Palliative care will continue to follow during hospital course as condition evolves, to assist patient/decision-maker with understanding of medical conditions, weighing benefits/burdens of treatment options, for clarification of goals of treatment. Additionally will assist with any symptoms of palliative concern . Time Spent Total Floor Time (mins): 35 (CHART review, PE, d/w nursing, critical care, meeting with ) Attestation To help prompt me to consider important information that might be impacting today's encounter and assessment, information from prior notes written by myself or my colleagues may have been "brought forward" into today's note. My signature on this note, however, is an attestation that I personally performed the exam, history, and/or decision-making noted today, and, unless otherwise indicated, the interactions with patient, family, and staff as well as the review of records all occurred today. I also attest that the listed assessment and stated plan reflect my best clinical judgment today based on the combination of historical information, prior notes, and today's exam/ interactions. When time spent is documented, it refers only to time spent today by the signer, or if indicated, combined time spent today by collaborating physician/nurse practitioner. Cheri Saavedra Jul 27, 2017 12:28
[2017-07-27 12:51] LABS: AUTOMATED NEUTROPHIL # 5.4 TH/MM3 (1.8-7.7); BASOPHIL % 0.3 % (0.0-2.0); EOSINOPHIL # 0.1 TH/MM3 (0-0.4); EOSINOPHIL % 1.7 % (0.0-4.0); HEMATOCRIT 29.8 % (35.0-46.0); HEMO FLAGS AUTO DIFF; LYMPH % 10.1 % (9.0-44.0); LYMPHOCYTE # 0.8 TH/MM3 (1.0-4.8); MEAN CELL VOLUME 96.5 FL (80.0-100.0); MEAN CORPUSCULAR HEMOGLOBIN 31.3 PG (27.0-34.0); MEAN CORPUSCULAR HGB CONC 32.4 % (32.0-36.0); MONO % 18.1 % (0.0-8.0); NEUT % 69.8 % (16.0-70.0); PLATELET COUNT 197 TH/MM3 (150-450); RED BLOOD COUNT 3.09 MIL/MM3 (4.00-5.30); RED CELL DISTRIBUTION WIDTH 13.9 % (11.6-17.2); WHITE BLOOD COUNT 7.8 TH/MM3 (4.0-11.0)
[2017-07-27 13:38] LABS: BANDS 17 % (0-6); BASOPHILS 1 % (0-2); EOSINOPHILS 1 % (0-4); NEUTROPHIL # MANUAL DIFF 6.2 TH/MM3 (1.8-7.7); POLYS (SEG NEUTROPHILS) 62 % (16-70); WBC DIFF SAMPLE 100
[2017-07-27 13:39] LABS: PLATELET ESTIMATE SMEAR NORMAL (NORMAL); PLATELET MORPHOLOGY NORMAL (NORMAL); SCAN/DIFF FINAL DIFF MANUAL
--- NOTE | 2017-07-27 16:08 | RADRPT ---
EXAM DATE/TIME: 07/27/2017 15:16 [facility] COMPARISON: CT ABDOMEN & PELVIS W CONTRAST, December 25, 2016, 4:31. US ABDOMEN - LIVER, June 03, 2013, 11:00. INDICATIONS : Increased lab values. MEDICAL HISTORY : Gastroesophageal reflux disease. Hypercholesterolemia. Hypertension. Alzheimer's disease. dementia. s yncope. coronary artery disease. diverticulitis. stage iii renal failure. mrsa, esbl. SURGICAL HISTORY : Bladder lift. ENCOUNTER: Initial ACUITY: 1 day PAIN SCORE: Nonresponsive. LOCATION: Abdomen. MEASUREMENTS: LIVER: 18.3 cm length COMMON DUCT: 4 mm RIGHT KIDNEY: 10.1 x 4.5 x 4.3 cm SPLEEN: 9.1 cm length FINDINGS: LIVER: Liver is mildly enlarged with diffusely decreased echogenicity. No focal mass or intrahepatic ductal dilatation. Main portal vein is patent. COMMON DUCT: No intraluminal mass or stone visualized. GALLBLADDER: Gallbladder is decompressed which can accentuate the gallbladder wall. Multiple probable tiny stones in the gallbladder neck. No significant pericholecystic fluid or sonographic Pérez sign. PANCREAS: Pancreatic tail is obscured. Remainder of the pancreas is unremarkable as visualized. RIGHT KIDNEY: No hydronephrosis, stone or mass. SPLEEN: Redemonstration of superior splenic calcification and small cyst in the inferior spleen measuring 2.4 x 2.4 x 1.7 cm. CONCLUSION: 1. Mild hepatomegaly with diffusely increased hepatic echogenicity consistent with hepatic steatosis versus medical liver disease. 2. Contracted gallbladder with multiple small gallstones near the gallbladder neck. There is mild gal lbladder wall prominence which is likely accentuated by the contracted gallbladder. No pericholecysti c fluid or sonographic Pérez's sign to support cholecystitis. If there is continued significant clin ical concern, HIDA scan may be performed to evaluate for cystic duct patency. Del Mejia MD on July 27, 2017 at 15:59 Board Certified Radiologist. This report was verified electronically.
[2017-07-28] VITALS (12 sets, daily range): BP systolic 119–142; BP diastolic 53–63; PULSE 61–86; RESP 12–23; TEMP 99–101.2; O2SAT 83–99
[2017-07-28] MEDS: CHLORHEXIDINE GLUCONATE 2 % 1 PACK (2 CLOTHS) TOP SCH (03:35)
[2017-07-28] MEDS: INSULIN NovoLIN REGULAR SUPPLEMENTAL SCALE SQ SCH ×3 (03:35→14:41)
[2017-07-28] MEDS: LEVOTHYROXINE SODIUM 100 MCG TAB PO SCH (05:29)
[2017-07-28 07:30] LABS: ANION GAP 8 MEQ/L (5-15); AST (GOT) 130 U/L (15-37); BICARBONATE 31.5 MEQ/L (21.0-32.0); BLOOD UREA NITROGEN 27 MG/DL (7-18); CHLORIDE 105 MEQ/L (98-107); GLOMERULAR FILTRATION RATE 68 ML/MIN (>89); MAGNESIUM 2.4 MG/DL (1.5-2.5); POTASSIUM 4.1 MEQ/L (3.5-5.1); SODIUM (NA) 144 MEQ/L (136-145)
[2017-07-28 07:32] LABS: ALT (GPT) 85 U/L (10-53)
[2017-07-28 07:34] LABS: ALKALINE PHOSPHATASE 149 U/L (45-117); TOTAL BILIRUBIN ADULT 0.2 MG/DL (0.2-1.0)
--- NOTE | 2017-07-28 09:27 | HHI.CCPN ---
Subjective Remarks/Hospital Course 07/22: 82-year-old female with a medical history significant for advanced Alzheimer's dementia who was been in assisted for 4 years was recently discharged after being admitted with altered mental status seizures and UTI. She was initiated on Keppra and Depakote after being evaluated by Dr. Kay at that time. She was also started on ciprofloxacin and was evaluated by ID for a UTI. Since her discharge patient developed worsening neurologic status yesterday with question of obtundation. There was a question of her receiving Depakote injection last night following which her neurologic status continued to worsen hence she was brought to the ER by [facility]. Patient was not protecting her airway per ER physician with some gurgling sounds on arrival hence was intubated for airway protection and placed on mechanical ventilation. Head CT done in the ER was negative for any intracranial hemorrhage. Valproate levels were in the upper end of the therapeutic range. Patient was sedated with propofol following intubation. She was accepted for admission by critical care medicine service. When I evaluated the patient she was sedated with propofol, orally intubated on mechanical ventilation. History was obtained by reviewing records and discussion with Dr. Goss as family was not available at the time of my evaluation. 07/23: Remains encephalopathic off sedation, orally intubated on mechanical ventilation. EEG done yesterday showed burst suppression. 07/24: Remains encephalopathic off sedation. Orally intubated on mechanical ventilation 07/25: No improvement in neurologic status. Remains encephalopathic, no response to painful stimuli. Remains orally intubated on mechanical ventilation. 07/26: Remains encephalopathic, orally intubated on mechanical ventilation. Tolerating tube feeds. No improvement in neurologic status. 07/27 No events overnight. Remains intubated, on no sedation. T: 100.8 last night. 07/28: Remains encephalopathic, orally intubated on mechanical ventilation. Tolerating tube feeds. No improvement in neurologic status over the last few days. Objective Vital Signs Date Time Temp Pulse Resp B/P (MAP) Pulse Ox O2 Delivery O2 Flow Rate FiO2 07/28/17 08:42 99 35 07/28/17 06:00 82 07/28/17 04:00 99.0 12 120/57 (78) Intake and Output 07/28/17 07/28/17 07/29/17 08:00 16:00 00:00 Intake Total 918 ml Output Total 450 ml Balance 468 ml Result Diagram: 07/27/17 1210 07/28/17 0438 Imaging Last Impressions Head CT 07/22/17744 Signed Impressions: Service Date/Time: Saturday, July 22, 2017 08:26 - CONCLUSION: 1. Atrophy. 2. No acute intracranial abnormality. Martin Olivarez Jr., MD Chest X-Ray 07/22/17744 Signed Impressions: Service Date/Time: Saturday, July 22, 2017 08:15 - CONCLUSION: No acute disease. Martin Olivarez Jr., MD Objective Remarks HEENT/ Neuro: encephalopathic/ comatose, orally intubated, Pallor present, no icterus, tongue/ mucosa moist. Neck: No JVD Chest/Pulm: on mech vent, good air entry bilaterally, no wheezing or crackles CVS: S1-S2 regular, no murmur GI/abdomen: soft, nontender, bowel sounds sluggish Extremities: warm bilaterally, no edema A/P Assessment and Plan 82-year-old female with: Encephalopathy Recent seizure Advanced Alzheimer's dementia Recent UTI Acute respiratory failure on mechanical ventilation Plan: Neuro:Off sedation, continue with neuro checks per ICU protocol. Keppra/ valproate per neurology. Dr. Perez from neurology following. EEG done on 07/22 with burst suppression. EEG 07/23- Mod-severe encephalopathy CV: Monitor HR and BP keep MAP>65mmHg On Lopressor 50mg BID< ASA Pulm: Continue with vent support keep sat >92% Bronchodilators, ICU vent bundle. Continue with CPAP trials, patient is at high risk of reintubation if extubated due to her mental status. GI/liver: Continue with tube feeds- Glucerna 1.5@60ml/jr, On Pepcid for GI prophylaxis Monitor LFT's, check US liver : Monitor renal function, I/O's. electrolytes replacement per protocol. ID: Off Cipro stopped 07/26 as pt. completed therapy for recent UTI per ID recommendation. Monitor for signs of infections ( Fever, WBC) Endocrine: SSI for glycemic control as needed. On Synthroid 100mcg daily, TSH 3.6 Heme: Follow CBC Prophylaxis: Pepcid/ SCDs, Heparin subcutaneously Palliative care to assist with deciding goals of therapy in view of her advanced Alzheimer's disease. Patient's family wishes to wait for a few days to see if patient improves prior to making any decisions regarding CODE STATUS and de-escalation of therapy. Level 3 Javi Gilliam MD Jul 28, 2017 09:27
[2017-07-28] MEDS: METOPROLOL TARTRATE 50 MG TAB PO SCH (09:44)
[2017-07-28] MEDS: HEPARIN SODIUM - SQ 10,000 UNITS/ML VIAL SQ SCH (09:44)
[2017-07-28] MEDS: DOCUSATE SODIUM 50 MG/SENNA 8.6 MG TAB PO SCH (09:44)
[2017-07-28] MEDS: levETIRAcetam 500 MG TAB PO SCH (09:44)
[2017-07-28] MEDS: FAMOTIDINE 20 MG TAB TUBE SCH (09:44)
[2017-07-28] MEDS: SODIUM CHLORIDE 0.9% FLUSH 10 ML FLUSH IV FLUSH SCH (09:44)
[2017-07-28] MEDS: ASPIRIN 81 MG CHEW TAB CHEW SCH (09:44)
[2017-07-28] MEDS: VALPROIC ACID SYRUP 250 MG/5 ML UDC OG-TUBE SCH (09:44)
[2017-07-28] MEDS: POLYETHYLENE GLYCOL 17 GM PKG PO SCH (09:45)
[2017-07-28] MEDS: CHLORHEXIDINE 0.12% (ORAL KIT) 15 ML CUP MT SCH (09:50)
[2017-07-28] MEDS: ACETAMINOPHEN 325 MG TAB PO PRN (10:00)
[2017-07-28] MEDS ORDERED: HYOSCYAMINE 0.5 MG/ML AMP IV PUSH ONE (15:00)
[2017-07-28] MEDS ORDERED: LORazepam 2 MG/ML VIAL IV PUSH ONE ×2 (15:00→15:30)
[2017-07-28] MEDS ORDERED: MORPHINE SULFATE 8 MG/ML INJ IV PUSH ONE (15:00)
--- NOTE | 2017-07-28 15:22 | HHI.HCPN ---
Reason for visit a. To assist with evaluation and management of symptoms including: Altered mental status b. To assist medical decision maker(s) with: better understanding of current medical conditions; weighing benefits/burdens of medical treatment options; making medical treatment decisions. (Cheri Saavedra) Subjective/Interval History Pt seen today for planned transition to comfort, withdrawal of mechanical vent per decision, based on pt known wishes. Patient seen in medical ICU. Remains on mechanical ventilation, has been off of sedation since last ( 5 days). Nsg reports no changes in neuro assessment. Febrile 101.2 t max. Chemistry w up trending liver functions, s/p liver us/ yesterday : 1. Mild hepatomegaly with diffusely increased hepatic echogenicity consistent with hepatic steatosis versus medical liver disease. 2. Contracted gallbladder with multiple small gallstones near the gallbladder neck. There is mild gallbladder wall prominence which is likely accentuated by the contracted gallbladder. No pericholecystic fluid or sonographic Pérez's sign to support cholecystitis. If there is continued significant clinical concern, HIDA scan may be performed to evaluate for cystic duct patency Pt seen in room w , 2 daughters at bedside. No improvement noted to my neuro exam: no eye opening to stimuli. + strong cough/gag on mech vent. + withdrawal BLE to pain stimuli, no withdrawal from BUE, somewhat of a facial grimace w pain stimuli to upper extremities. Met w , 2 daughters. Brief review of hospital course, tx in place, clinical assessment, prognosis/trajectories. Pt again endorses pt would not want to continue with prolonged ventilation and artificial measures without hope of good chance of regaining prior cognitive/functional status. He wishes to proceed w withdrawal of mech vent and transition to comfort focus today, now. anticipatory guidance provided, all questions answered. They wish to discuss possibility of hospice further tomorrow. d/w nurse, critical care. Orders to be entered for comfort for pre withdrawal, withdrawal, and post withdrawal. . (Cheri Saavedra) Advance Directives Living Will: Copy in medical record Health Care Surrogate: Copy in medical record Durable Power of Shipfitter Apprentice: Copy in medical record (Cheri Saavedra) Advance Directive Specifics Date completed: October 2012 Health Care Surrogate(s): Names primary Marvin, alternate daughter Liberty . Documented care wishes: Living will directs in standard verbiage that in the presence of terminal, irreversible or irrecoverable condition that artificial measures be withheld including fluids etc. and that pt be permitted to naturally with only administration of treatments necessary to comfort or alleviate pain. . (Cheri Saavedra) Objective Vital Signs Date Time Temp Pulse Resp B/P (MAP) Pulse Ox O2 Delivery O2 Flow Rate FiO2 07/28/17 14:00 61 07/28/17 12:00 35 07/28/17 12:00 99.8 07/28/17 12:00 61 07/28/17 12:00 99.8 61 23 124/53 (76) 83 07/28/17 11:39 99 35 07/28/17 11:00 13 07/28/17 10:00 86 07/28/17 08:42 99 35 07/28/17 08:00 82 07/28/17 08:00 101.2 85 13 142/63 (89) 98 07/28/17 08:00 35 07/28/17 06:00 82 07/28/17 04:00 35 07/28/17 04:00 99.0 75 12 120/57 (78) 98 07/28/17 04:00 75 07/28/17 03:01 99 35 07/28/17 02:00 81 07/28/17 00:00 99.9 77 14 119/56 (77) 98 07/28/17 00:00 35 07/28/17 00:00 77 07/27/17 23:22 100 35 07/27/17 22:00 76 07/27/17 20:00 74 07/27/17 20:00 35 07/27/17 20:00 99.1 74 16 122/49 (73) 98 07/27/17 19:18 97 35 07/27/17 18:00 77 07/27/17 16:00 100.7 69 19 139/62 (87) 93 07/27/17 16:00 35 07/27/17 16:00 69 07/27/17 15:54 100 35 Intake & Output 07/28/17 07/28/17 07:00 19:00 Intake Total 918 ml Output Total 450 ml Balance 468 ml Tube Feeding 798 ml Other 120 ml Output Urine Total 450 ml # Bowel Movements 1 Physical Exam CONSTITUTIONAL/GENERAL: This is an adequately nourished patient, on mechanical vent. TUBES/LINES/DRAINS: PIV BUE, morales catheter, ETT, OGT SKIN: No jaundice, rashes, or lesions. Several areas of ecchymosis bilateral arms. Skin warm EYES: Pupils 3 mm, +reaction to light. No scleral icterus. No injection or drainage. Fundi not examined. CARDIOVASCULAR: Regular rate and rhythm without murmur. Peripheral pulses symmetric. Slight edema to upper extremities. RESPIRATORY/CHEST: Symmetric, unlabored respirations via ET tube on mechanical vent. scattered rhonchi . Breath sounds equal bilaterally. + Copious clear oral secretions around ET tube. GASTROINTESTINAL: Abdomen soft, no apparent tenderness though patient is minimally responsive, nondistended. No hepato-splenomegaly, or palpable masses. Bowel sounds present.TF infusing to OGT GENITOURINARY: Without palpable bladder distension. Morales catheter in place clear dark yellow urine. NEUROLOGICAL: Off sedation for past several days. No eye opening to my exam. Withdrawal to pain BLE. No response to pain BUE. NO response to central pain. + cough on mech vent PSYCHIATRIC: no apparent anxiety- limited exam due to condition . (Cheri Saavedra) Diagnostic Tests Laboratory Laboratory Tests Test 07/27/17 05:35 07/27/17 12:10 07/28/17 04:38 White Blood Count 8.0 TH/MM3 (4.0-11.0) 7.8 TH/MM3 (4.0-11.0) Red Blood Count 3.19 MIL/MM3 (4.00-5.30) 3.09 MIL/MM3 (4.00-5.30) Hemoglobin 10.1 GM/DL (11.6-15.3) 9.7 GM/DL (11.6-15.3) Hematocrit 31.0 % (35.0-46.0) 29.8 % (35.0-46.0) Mean Corpuscular Volume 97.0 FL (80.0-100.0) 96.5 FL (80.0-100.0) Mean Corpuscular Hemoglobin 31.7 PG (27.0-34.0) 31.3 PG (27.0-34.0) Mean Corpuscular Hemoglobin Concent 32.7 % (32.0-36.0) 32.4 % (32.0-36.0) Red Cell Distribution Width 13.8 % (11.6-17.2) 13.9 % (11.6-17.2) Platelet Count 191 TH/MM3 (150-450) 197 TH/MM3 (150-450) Mean Platelet Volume 9.3 FL (7.0-11.0) 9.3 FL (7.0-11.0) Neutrophils (%) (Auto) 72.6 % (16.0-70.0) 69.8 % (16.0-70.0) Lymphocytes (%) (Auto) 10.7 % (9.0-44.0) 10.1 % (9.0-44.0) Monocytes (%) (Auto) 14.0 % (0.0-8.0) 18.1 % (0.0-8.0) Eosinophils (%) (Auto) 2.4 % (0.0-4.0) 1.7 % (0.0-4.0) Basophils (%) (Auto) 0.3 % (0.0-2.0) 0.3 % (0.0-2.0) Neutrophils # (Auto) 5.8 TH/MM3 (1.8-7.7) 5.4 TH/MM3 (1.8-7.7) Lymphocytes # (Auto) 0.9 TH/MM3 (1.0-4.8) 0.8 TH/MM3 (1.0-4.8) Monocytes # (Auto) 1.1 TH/MM3 (0-0.9) 1.4 TH/MM3 (0-0.9) Eosinophils # (Auto) 0.2 TH/MM3 (0-0.4) 0.1 TH/MM3 (0-0.4) Basophils # (Auto) 0.0 TH/MM3 (0-0.2) 0.0 TH/MM3 (0-0.2) CBC Comment DIFF FINAL AUTO DIFF Differential Comment FINAL DIFF MANUAL Blood Urea Nitrogen 27 MG/DL (7-18) 27 MG/DL (7-18) Creatinine 0.95 MG/DL (0.50-1.00) 0.81 MG/DL (0.50-1.00) Random Glucose 135 MG/DL (74-106) 125 MG/DL (74-106) Total Protein 6.0 GM/DL (6.4-8.2) 6.0 GM/DL (6.4-8.2) Albumin 1.8 GM/DL (3.4-5.0) 1.7 GM/DL (3.4-5.0) Calcium Level 8.4 MG/DL (8.5-10.1) 8.5 MG/DL (8.5-10.1) Alkaline Phosphatase 128 U/L (45-117) 149 U/L (45-117) Aspartate Amino Transf (AST/SGOT) 117 U/L (15-37) 130 U/L (15-37) Alanine Aminotransferase (ALT/SGPT) 66 U/L (10-53) 85 U/L (10-53) Total Bilirubin 0.2 MG/DL (0.2-1.0) 0.2 MG/DL (0.2-1.0) Sodium Level 145 MEQ/L (136-145) 144 MEQ/L (136-145) Potassium Level 4.1 MEQ/L (3.5-5.1) 4.1 MEQ/L (3.5-5.1) Chloride Level 109 MEQ/L (98-107) 105 MEQ/L (98-107) Carbon Dioxide Level 30.9 MEQ/L (21.0-32.0) 31.5 MEQ/L (21.0-32.0) Anion Gap 5 MEQ/L (5-15) 8 MEQ/L (5-15) Estimat Glomerular Filtration Rate 57 ML/MIN (>89) 68 ML/MIN (>89) Differential Total Cells Counted 100 Neutrophils % (Manual) 62 % (16-70) Band Neutrophils % 17 % (0-6) Lymphocytes % 8 % (9-44) Monocytes % 11 % (0-8) Eosinophils % 1 % (0-4) Basophils % 1 % (0-2) Neutrophils # (Manual) 6.2 TH/MM3 (1.8-7.7) Platelet Estimate NORMAL (NORMAL) Platelet Morphology Comment NORMAL (NORMAL) Phosphorus Level 2.2 MG/DL (2.5-4.9) Magnesium Level 2.4 MG/DL (1.5-2.5) (Cheri Saavedra) Result Diagram: 07/27/17 1210 07/28/17 3948 Microbiology Last Impressions Liver Ultrasound 07/27/17 0000 Signed Impressions: Service Date/Time: Thursday, July 27, 2017 15:16 - CONCLUSION: 1. Mild hepatomegaly with diffusely increased hepatic echogenicity consistent with hepatic steatosis versus medical liver disease. 2. Contracted gallbladder with multiple small gallstones near the gallbladder neck. There is mild gallbladder wall prominence which is likely accentuated by the contracted gallbladder. No pericholecystic fluid or sonographic Pérez's sign to support cholecystitis. If there is continued significant clinical concern, HIDA scan may be performed to evaluate for cystic duct patency. Del Mejia MD Head CT 07/22/1745 Signed Impressions: Service Date/Time: Saturday, July 22, 2017 08:26 - CONCLUSION: 1. Atrophy. 2. No acute intracranial abnormality. Martin Olivarez Jr., MD Chest X-Ray 07/22/1745 Signed Impressions: Service Date/Time: Saturday, July 22, 2017 08:15 - CONCLUSION: No acute disease. Martin Olivarez Jr., MD Imaging Last Impressions Liver Ultrasound 07/27/17 0000 Signed Impressions: Service Date/Time: Thursday, July 27, 2017 15:16 - CONCLUSION: 1. Mild hepatomegaly with diffusely increased hepatic echogenicity consistent with hepatic steatosis versus medical liver disease. 2. Contracted gallbladder with multiple small gallstones near the gallbladder neck. There is mild gallbladder wall prominence which is likely accentuated by the contracted gallbladder. No pericholecystic fluid or sonographic Pérez's sign to support cholecystitis. If there is continued significant clinical concern, HIDA scan may be performed to evaluate for cystic duct patency. Del Mejia MD Head CT 07/22/17 0745 Signed Impressions: Service Date/Time: Saturday, July 22, 2017 08:26 - CONCLUSION: 1. Atrophy. 2. No acute intracranial abnormality. Martin Olivarez Jr., MD Chest X-Ray 07/22/1745 Signed Impressions: Service Date/Time: Saturday, July 22, 2017 08:15 - CONCLUSION: No acute disease. Martin Olivarez Jr., MD Procedures * 07/22/17 -endotracheal intubation . (Cheri Saavedra) Assessment and Plan Disease Oriented Problem List: (1) Respiratory failure (2) Metabolic encephalopathy (3) Chronic kidney disease, stage III (moderate) (4) Paroxysmal atrial fibrillation (5) Alzheimer's dementia (6) Hypothyroid Symptom Scale: (1) Dyspnea 0-10 Scale: Unable to quantify (2) Encephalopathy 0-10 Scale: Unable to quantify Pertinent Non-Medical Issues Psychosocial: Patient has lived in nursing facility since April 2016, prior to that lived at home with her . Per prior palliative interaction: Patient is originally from [facility]. She met her when she was young teenager at the [facility]. Together they had 4 children, 3 girls and 1 boy. They lived "all over the place"per the patient's . Mrs. Guzman was a "[id number] mom." Marvin and Piedad Gustafson been for approximately 62 years. They moved to [place] in 1997 and enjoyed spending time with their friends-most of whom were childhood friends . Spiritual: Rastafari sobeida Legal:Patient currently intubated on mechanical vent. Underlying history of Alzheimer's. Unable to make her own decisions, healthcare surrogate names Santos as primary surrogate with daughter Liberty as alternative. Ethical issues impacting care: No ethical issues identified. . Important Contacts and healthcare surrogate Marvin Gustafson [phone] // [phone] . Prognosis Patient diagnosed with dementia approximately 7 years ago. Has continued to have expected progression of disease. She has had poor appetite, and now requires full care for ADLs and is primarily bed to wheelchair bound. halfway resident. She has had several recent hospital visits for UTI, seizure. Though current episode may stabilize and resolve, Overall prognosis poor given progression of Alzheimer dementia. Appropriate for hospice if goals compatible. . Code Status: No Code Plan * Legal decision maker:Patient currently intubated on mechanical vent. Underlying history of Alzheimer's. Unable to make her own decisions, healthcare surrogate names Marvin as primary surrogate with daughter Liberty as alternative. * Goals: 07/24 Family electing to continue aggressive management to include FULL code, allow a few more days to reevaluate patient's clinical condition. Family may consider transition to comfort-directed care should patient's clinical condition does not improve or continues to worsen. 07/28/17 Met w , 2 daughters. Brief review of hospital course, tx in place , clinical assessment, prognosis/trajectories. Pt again endorses pt would not want to continue with prolonged ventilation and artificial measures without hope of good chance of regaining prior cognitive/functional status. He wishes to proceed w withdrawal of mech vent and transition to comfort focus today, now. anticipatory guidance provided, all questions answered. They wish to discuss possibility of hospice further tomorrow 07/29. Exhibits B, C, signed by attending MD, palliative MD and in chart. * d/w nurse, critical care. Orders entered for comfort for pre withdrawal, withdrawal, and post withdrawal. * CODE STATUS: Elected DNR today 07/27 * SYMPTOMS: --Encephalopathy/AMS-pt with reported nonresponsiveness, increased lethargy following Depakote administration. Underlying history of advanced Alzheimer's dementia. CT brain negative for acute process. Recent new diagnosis of seizure , previously followed by neurology seizures felt possibly secondary to UTI, Alzheimer's dementia. Neurology following. Most recent EEG with persistent moderate to severe encephalopathy. no improvement in neurological status --Dyspnea-emergently intubated for airway protection/apnea. daily cpap, unable to medically extubate 2/2 mental status. * discussed with bedside RN * Palliative care will continue to follow during hospital course as condition evolves, to assist patient/decision-maker with understanding of medical conditions, weighing benefits/burdens of treatment options, for clarification of goals of treatment. Additionally will assist with any symptoms of palliative concern . (Cheri Saavedra) Time Spent Total Floor Time (mins): 40 (chart review, PE, d/w rn, meeting w family) (Cheri Saavedra) Attestation To help prompt me to consider important information that might be impacting today's encounter and assessment, information from prior notes written by myself or my colleagues may have been "brought forward" into today's note. My signature on this note, however, is an attestation that I personally performed the exam, history, and/or decision-making noted today, and, unless otherwise indicated, the interactions with patient, family, and staff as well as the review of records all occurred today. I also attest that the listed assessment and stated plan reflect my best clinical judgment today based on the combination of historical information, prior notes, and today's exam/ interactions. When time spent is documented, it refers only to time spent today by the signer, or if indicated, combined time spent today by collaborating physician/nurse practitioner. (Cheri Saavedra) Collaborating MD Comments Chart reviewed, patient examined personally by me, case discussed with palliative care MARINE HABITAT RESOURCE SPECIALIST. Above note reviewed and I concur. Afebrile, stable VS, remains on vent. Minimally responsive off sedation -- withdraws to noxious stimuli Frequent coughing on vent . Ronchi heard bilaterally. Cardiac and abdominal exams unremarkable. Given patient's long standing Alzheimer's disease and current critical illness with poor prognosis for meaningful recovery, family is opting to forego further aggressive care, withdraw life support, and transition to comfort measures only. Anticipatory guidance provided by MARINE HABITAT RESOURCE SPECIALIST per above note. I have signed appropriate Exhibit. Withdrawal and post-withdrawal comfort orders reviewed and I concur. Time: Total physician/MARINE HABITAT RESOURCE SPECIALIST time over 40 minutes on floor with over 50% devoted to counseling and coordination of care including the above referenced family conference and collaboration with primary nurse on withdrawal. (Christopher Desai MD) Cheri Saavedra Jul 28, 2017 15:22 Christopher Desai MD Jul 28, 2017 19:32
[2017-07-28] MEDS ORDERED: MORPHINE SULFATE 4 MG/ML INJ IV PUSH PRN (15:30)
[2017-07-28] MEDS ORDERED: MORPHINE SULFATE 8 MG/ML INJ IV PUSH PRN (15:30)
[2017-07-28] MEDS ORDERED: FUROSEMIDE 20 MG/2 ML VIAL IV PUSH PRN (15:30)
[2017-07-28] MEDS ORDERED: LORazepam 2 MG/ML VIAL IV PUSH PRN ×3 (15:30)
[2017-07-28] MEDS ORDERED: MORPHINE SULFATE 4 MG/ML INJ IV PUSH ONE (15:30)
[2017-07-28] MEDS ORDERED: HYOSCYAMINE 0.5 MG/ML AMP IV PUSH PRN (15:30)
[2017-07-28] MEDS ORDERED: LORazepam 2 MG/ML VIAL IV PUSH SCH (16:00)
[2017-07-28] MEDS ORDERED: FAMOTIDINE 20 MG TAB TUBE SCH (21:00)
== END 2017-07-28 17:15 | disposition expired | DRG 207 ==
LOC: NEPE 07:31 → NEDA 10:43 → NEDH 15:54 → HIMW 19:40
PROVIDERS: ADMIT Internal Medicine Critical Care Medicine; ATTEND Internal Medicine Critical Care Medicine
PROC: 5A1955Z Respiratory Ventilation, Greater than 96 Consecutive Hours (ICD-10-PCS; principal; 2017-07-22)
PROC: 0BH17EZ Insertion of Endotracheal Airway into Trachea, Via Natural or Artificial Opening (ICD-10-PCS; 2017-07-22)
DX: J96.00 Acute respiratory failure, unspecified whether with hypoxia or hypercapnia (principal); G93.40 Encephalopathy, unspecified; R56.9 Unspecified convulsions; N39.0 Urinary tract infection, site not specified; R40.2432 Glasgow coma scale score 3-8, at arrival to emergency department; G30.9 Alzheimer's disease, unspecified; F02.80 Dementia in other diseases classified elsewhere, unspecified severity, without behavioral disturbance, psychotic disturbance, mood disturbance, and anxiety; I12.9 Hypertensive chronic kidney disease with stage 1 through stage 4 chronic kidney disease, or unspecified chronic kidney disease; N18.3 Chronic kidney disease, stage 3 (moderate); I25.10 Atherosclerotic heart disease of native coronary artery without angina pectoris; E78.00 Pure hypercholesterolemia, unspecified; K21.9 Gastro-esophageal reflux disease without esophagitis; E03.9 Hypothyroidism, unspecified; Z51.5 Encounter for palliative care
CPT/HCPCS: 31500; 36600; 51702; 70450; 71010; 76705; 80053; 80164; 81001; 82140; 82550; 82805; 82948; 83605; 83735; 84100; 84443; 84484; 85007; 85025; 85027; 85610; 87040; 87641; 93005; 94002; 94003; 94640; 94664; 95819; 96365; J0330; J1644; J1940; J1980; J2060; J2270; J7030